=== PATIENT | female | born 1990 | race African-American/Black ===

== ENCOUNTER 2019-04-24 10:01 | Emergency (ER) | payer OTHER, SELFPAY ==
[2019-04-24 10:13] VITALS: BP 134/60; PULSE 80; RESP 18; TEMP 36.7; O2SAT 100
--- NOTE | 2019-04-24 10:14 | ED.FEMALEGU ---
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 Patient denies any change in sexual partners does have history of herpes and takes Acyclovir daily with no recent outbreaks. Patient states that she is on Depo and concerned because she had heavy period this past month and wants test. Patient declines STD check states has annual well woman appointment in May and next Depo injection. Patient states that she also has had a headache and felt dizzy at times with no other related symptoms,denies any visual disturbances,no changes in gait or any fevers,no neuro changes, moves all extremities on own power. MD elicited complaint: vaginal discharge and genital itching Pertinent past history: STI/STD Onset (ago): day(s) (6) Location of symptoms: external genitalia and vaginal Severity: mild Female Urogenital Radiation: Non-Radiating Severity scale (1-10): 7 (headache, ) Quality of pain: dull and other (irritating perineal, dull headache) Consistency: progressively worsening Vaginal discharge: white and thick/cheesy Vaginal bleeding: none Exacerbating factors: none and other Relieving factors: none Associated symptoms: headaches and other (occaisional dizziness, perineal irritation) Treatment prior to arrival: none Sexual activity: Yes Patient : No Possible : other (preg test negative at clinic) Date of Last Menstrual Period: 03/11/19 Related Data Home Medications Medication Instructions Recorded Confirmed acyclovir 02/03/19 medroxyprogesterone mg IM 02/03/19 ranitidine HCl 02/03/19 Allergies Allergy/AdvReac Type Severity Reaction Status Date / Time No Known Allergies Allergy Verified 02/03/19 17:47 Review of Systems Review of Systems: Narrative: CONSTITUTIONAL: Denies fever, chills, or sweats. EYES: Denies visual changes, redness, or discharge. ENT: Denies rhinorrhea, congestion, sore throat, or otalgia. CARDIOVASCULAR: Denies chest pain, palpitations, or edema. RESPIRATORY: Denies cough or dyspnea. GASTROINTESTINAL: Denies abdominal pain, nausea, vomiting, or diarrhea. GENITOURINARY: Denies dysuria or hematuria. vaginal discharge, white and itchy, declines pelvic, states no pain in pelvic region, similar symptoms past with yeast infections SKIN: Denies rash or itching, except for vaginal itching MUSCULOSKELETAL: Denies back pain, joint pain, or myalgia. NEUROLOGIC: intermittent headache,no numbness, or weakness. PSYCHIATRIC: Denies anxiety or depression. 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 There is no relevant family history pertinent to the presenting complaint Exam Narrative: Exam Narrative: GENERAL: Well-appearing, well-nourished, and in no acute distress. HEAD: Normocephalic, atraumatic. EYES: PERRLA and EOMI. ENT: Nares clear, no rhinorrhea or epistaxis. Mucous membranes moist.TM's normal with good light reflex, thro
== END 2019-04-24 11:07 | disposition home or self-care (01) ==
PROVIDERS: Emergency Provider Registered Nurse; PCP Nurse Practitioner
DX: B37.3 Candidiasis of vulva and vagina (principal); K21.9 Gastro-esophageal reflux disease without esophagitis
CPT/HCPCS: 81025; 99213; G0463

== ENCOUNTER 2019-12-15 14:20 | Outpatient (CLI) | payer OTHER, SELFPAY | END 2019-12-15 14:21 | disposition home or self-care (01) | LOC: ANHAUDIO 14:21 | PROVIDERS: PCP Nurse Practitioner; Visit Provider Otolaryngology | DX: H93.19 Tinnitus, unspecified ear (principal) | CPT/HCPCS: 92552; 92556; 92567 ==

== ENCOUNTER 2020-08-03 14:51 | Emergency (ER) | payer OTHER, SELFPAY ==
[2020-08-03 15:01] VITALS: BP 128/68; PULSE 97; RESP 16; TEMP 36.8; O2SAT 100
--- NOTE | 2020-08-03 15:07 | ED.GENADULT ---
HPI - General Adult General Chief complaint: Extremity Injury, Upper Stated complaint: lower back pain Source: patient Mode of arrival: ambulatory Limitations: no limitations History of Present Illness HPI narrative: 30 y/o AA female. PMH includes: GERD. Presents to [facility] today with acute complaints of cervical neck stiffness and muscle spasm after working a 12 hours shift at a [employer], her place of employment. 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 Client notes increased muscle stiffness since her shift ended from lifting my arms so much . No acute falls or trauma has been relayed. No fever. No focal weakness. No loss of upper extremity sensation or control. She reports mild relief with home OTC Aleve regimen. No additional acute complaints of illness have been relayed upon exam. Related Data Home Medications Medication Instructions Recorded Confirmed famotidine 10 mg tablet 10 mg PO DAILY 12/03/19 08/03/20 Allergies Allergy/AdvReac Type Severity Reaction Status Date / Time No Known Allergies Allergy Verified 08/03/20 15:09 Review of Systems Review of Systems: Narrative: CONSTITUTIONAL: Denies fever, chills, sweats. EYES: Denies visual changes, redness, discharge. ENT: Denies rhinorrhea, congestion, sore throat, otalgia. CARDIOVASCULAR: Denies chest pain, palpitations, edema. RESPIRATORY: Denies dyspnea, wheezing, cough GASTROINTESTINAL: Denies abdominal pain, nausea, vomiting, diarrhea. GENITOURINARY: Denies dysuria, hematuria, abnormal discharge SKIN: Denies rash or itching. MUSCULOSKELETAL: Cervical neck stiffness. No midline back pain, additional joint pain, or myalgia. NEUROLOGIC: Denies numbness, or focal weakness. PSYCHIATRIC: Denies anxiety or depression. 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 HEAD: normocephalic, atraumatic. EYES: PERRL. EARS: External ears normal. NOSE: External nose normal. THROAT: Mucous membranes moist, posterior pharynx clear. NECK: Neck supple, non-tender without lymphadenopathy, masses or thyromegaly. CARDIOVASCULAR: Regular rate and rhythm without murmurs, gallops, or rubs. RESPIRATORY: Clear to auscultation. Breath sounds equal bilaterally. GASTROINTESTINAL: Abdomen soft, non-tender, nondistended. NEURO: awake, alert, and oriented to person, place and time. There were no obvious focal neurologic abnormalities. Steady gait EXTREMITIES: Normal Cervical neck range of motion, no midline spinal tenderness. No nuchal rigidity. Positive cervical neck muscle spasm, LT > burdensome than RT. Reproducible with direct manipulation to trapezius. Remainder of musculoskeletal exam is negative. Course Vital Signs Vital signs: Vital Signs Temperature 36.8 C 08/03/20 15:01 Pulse Rate 97 08/03/20 15:01 Respiratory Rate 16 08/03/20 15:01 Blood Pressure 128/68 08/03/20 15:01 Pulse Oximetry 100 08/03/20 15:01 Temperature 36.8 C 08/03/20 15:01 Pulse Rate 97 08/03/20 15:01 Respiratory Rate 16 08/03/20 15:01 Blood Pressure 128/68 08/03/20 15:01 Pulse Oximetry 100 08/03/20 15:01 Medical De
== END 2020-08-03 15:12 | disposition home or self-care (01) ==
PROVIDERS: Emergency Provider Nurse Practitioner Adult Health
DX: M62.838 Other muscle spasm (principal); S16.1XXA Strain of muscle, fascia and tendon at neck level, initial encounter; X50.3XXA Overexertion from repetitive movements, initial encounter; Y99.0 Civilian activity done for income or pay; K21.9 Gastro-esophageal reflux disease without esophagitis
CPT/HCPCS: 99212; G0463

== ENCOUNTER 2021-12-25 09:01 | Emergency (ER) | payer OTHER, SELFPAY ==
--- NOTE | 2021-12-25 09:25 | ED.FEMALEGU ---
HPI - Female Genitourinary General Chief complaint: Urogenital-Female Stated complaint: Vaginal Problems Time Seen by Provider: 12/25/21 09:25 Source: patient, RN notes reviewed and old records reviewed Mode of arrival: ambulatory Limitations: no limitations History of Present Illness HPI Narrative: 31-year-old female presents to the [facility] with requesting a STD panel for blood, vaginal, test. Patient recently saw her DESIGN DIRECTOR. Started having vaginal discharge 2 days ago Has no specific concerns over STDs. Related Data Home Medications Medication Instructions Recorded Confirmed medroxyprogesterone 150 mg/mL 150 mg IM [id number] 12/25/21 12/25/21 intramuscular suspension valacyclovir 1 gram tablet mg PO DAILY 12/25/21 Allergies Allergy/AdvReac Type Severity Reaction Status Date / Time No Known Allergies Allergy Verified 12/25/21 09:53 Review of Systems Review of Systems: All systems reviewed & are unremarkable except as noted in HPI and below Constitutional: Constitutional: Reports no additional constitutional complaints, Denies chills and Denies fatigue Eyes: Eyes: Reports no additional eye complaints ENT: Reports system reviewed and no additional complaints, except as documented Cardiovascular: Cardiovascular: Reports no additional cardiovascular complaints Respiratory: Respiratory: Reports no additional respiratory complaints Gastrointestinal: Gastrointestinal: Reports no additional gastrointestinal complaints, Denies abdominal pain, Denies diarrhea, Denies nausea and Denies vomiting Genitourinary: Genitourinary: Reports as per HPI, Denies hematuria, Denies nocturia, Denies dysuria, Denies flank pain and Reports vaginal discharge Musculoskeletal: Musculoskeletal: Reports no additional musculoskeletal complaints and Denies back pain Integumentary/Breasts: Skin/Breast: Reports system reviewed and no additional complaints, except as docu Neurologic: Reports system reviewed and no additional complaints, except as documented Psychiatric: Psychiatric: Reports no additional psychiatric complaints Endocrine: Endocrine: Denies fatigue Allergic/Immunologic: Allergic/Immunologic: Reports no additional allergic/immunologic complaints [facility] Past Medical History Medical History GERD (gastroesophageal reflux disease) Herpes genitalis Surgical History Surgical History Previous section Social History Social History Smoking status: Never smoker Second hand tobacco smoke exposure: Yes Alcohol intake: never Substance use type: does not use 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 There is no relevant family history pertinent to the patient complaint. Exam Const: General: healthy appearing, no acute distress, alert and well nourished Nutritional Appearance: well nourished Orientation/consciousness: patient oriented x3 Limitations: no limitations HENMT: Head: normal to inspection Eyes: Conjunctivae: conjunctivae normal Pupils: Equal, round and reactive pupils present Neck: Neck: normal visual inspection, no lymphadenopathy and no meningeal signs Chest: Chest palpation & inspection: normal inspection of the chest and abnormal inspection of the chest Resp: Effort & Inspection: normal respiratory effort Auscultation: clear to auscultation bilaterally Cardio: Rate: regular rate Rhythm: regular rhythm GI: GI Palp: Yes Soft to palpation and No Tenderness to palpation present (GI) : General: Yes no CVA tenderness External Female Exam: normal external appearance Speculum Exam - Vagina: normal appearance of t
[2021-12-25 09:34] VITALS: BP 131/71; PULSE 76; RESP 12; TEMP 36.3; O2SAT 100
== END 2021-12-25 10:15 | disposition home or self-care (01) ==
PROVIDERS: Emergency Provider Nurse Practitioner
DX: N89.8 Other specified noninflammatory disorders of vagina (principal); Z32.02 Encounter for pregnancy test, result negative; Z20.2 Contact with and (suspected) exposure to infections with a predominantly sexual mode of transmission; K21.9 Gastro-esophageal reflux disease without esophagitis
CPT/HCPCS: 81025; 87070; 87491; 87591; 87661; 99214; G0463

== ENCOUNTER 2022-03-12 00:13 | Emergency (ER) | payer OTHER, SELFPAY ==
--- NOTE | ~2022-03-12 | XR_ITS ---
EXAMINATION: XR chest 2V DATE: 03/12/2022 03:07 INDICATION: Upper respiratory infection. TECHNIQUE: Frontal and lateral views of the chest were obtained. COMPARISON: Chest 2 views 02/03/2019 FINDINGS: The chest demonstrates clear lungs without pneumonia, pleural effusion, or pneumothorax. Th e heart size is normal. IMPRESSION: 1. No acute cardiopulmonary disease. Reviewed, dictated and finalized at location A. ESTATE APPRAISER SUPERVISOR
[2022-03-12 00:50] VITALS: BP 130/82; PULSE 78; RESP 18; TEMP 36.8; O2SAT 100
[2022-03-12 01:36] LABS: Strep Group A RT-PCR NOT DETECTED (Negative)
[2022-03-12 01:43] LABS: Influenza A QL RT-PCR Negative (Negative); Influenza B QL RT-PCR Negative (Negative); SARS-CoV-2 RNA PCR Negative
--- NOTE | 2022-03-12 03:00 | ED.URI ---
HPI - URI/Sore Throat General Chief Complaint: Upper Respiratory Infection Stated Complaint: URI Time Seen by Provider: 03/12/22 02:31 Source: patient Mode of arrival: ambulatory Limitations: no limitations History of Present Illness HPI Narrative: Patient is a 31 y/o female who presents to the ED with c/o sore throat. Patient reports having a sore scratchy throat for the last 2 days. She states when she lays down at night her throat feels very dry, causing her to have difficulty sleeping, which prompted her presentation. Patient presented to ED with her child who has also had similar symptoms. She reports having 1 episode of subjective fever and hoarse voice, no documented fever, denies chest pain, difficulty breathing, cough, nausea, vomiting. Patient is vaccinated for COVID and flu. Related Data Home Medications Medication Instructions Recorded Confirmed medroxyprogesterone 150 mg/mL 150 mg IM [id number] 12/25/21 12/25/21 intramuscular suspension valacyclovir 1 gram tablet mg PO DAILY 12/25/21 Allergies Allergy/AdvReac Type Severity Reaction Status Date / Time No Known Allergies Allergy Verified 12/25/21 09:53 Review of Systems Review of Systems: CONSTITUTIONAL: Reports subjective fever. ENT: See HPI. CARDIOVASCULAR: Denies chest pain. RESPIRATORY: Denies cough or dyspnea. GASTROINTESTINAL: Denies abdominal pain, nausea, vomiting. 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 HEAD: Normocephalic, atraumatic. EYES: PERRLA/EOMI, conjunctiva clear. ENT: No significant posterior pharynx erythema, no tonsillar hypertrophy or exudate. Uvula midline. Maintaining secretions. NECK: Supple. No adenopathy, no masses. RESPIRATORY: Airway patent, respirations nonlabored. Clear to auscultation bilaterally, no rales, rhonchi, wheezing. CARDIOVASCULAR: Regular rate and rhythm without murmurs, rubs, or gallops. Radial pulses 2+ and equal bilaterally. MUSCULOSKELETAL: Moves all extremities. Strength/ROM intact without gross deformities. SKIN: Warm, dry, normal color. No rashes. NEURO: A&O X3. Speech clear. Cranial nerves II-XII grossly intact. Steady gait. No ataxic movements. PSYCHIATRIC: Appropriate mood and affect. Normal interaction. Course Vital Signs Vital signs: Vital Signs Temperature 98.3 F 03/12/22 00:50 Pulse Rate 78 03/12/22 00:50 Respiratory Rate 18 03/12/22 00:50 Blood Pressure 130/82 03/12/22 00:50 Pulse Oximetry 100 03/12/22 00:50 Oxygen Delivery Room Air 03/12/22 00:50 Temperature 98.3 F 03/12/22 00:50 Pulse Rate 78 03/12/22 00:50 Respiratory Rate 18 03/12/22 00:50 Blood Pressure 130/82 03/12/22 00:50 Pulse Oximetry 100 03/12/22 00:50 Oxygen Delivery Room Air 03/12/22 00:50 MDM - URI/Sore Throat MDM Narrative Medical decision making narrative: Patient presented to ED with 2-day history of sore scratchy throat. Presented to ED with child with similar upper respiratory symptoms. No report of cough, documented fever, CP, SOB. Patient's vital signs stable upon arrival. Afebrile. COVID, influenza, strep negative. Chest x-ray interpreted by myself w/o focal consolidation. Patient without any other concerning signs or
== END 2022-03-12 03:31 | disposition home or self-care (01) ==
PROVIDERS: Emergency Medicine; Emergency Provider Physician Assistant
DX: J06.9 Acute upper respiratory infection, unspecified (principal); B00.9 Herpesviral infection, unspecified; Z20.822 Contact with and (suspected) exposure to COVID-19
CPT/HCPCS: 71046; 87636; 87651; 99283

== ENCOUNTER 2022-05-03 12:51 | Emergency (ER) | payer OTHER, SELFPAY ==
--- NOTE | ~2022-05-03 | XR_ITS ---
EXAMINATION: XR chest 2V 05/03/2022 13:36 INDICATION: Left-sided chest pain PROCEDURE: 2 view chest COMPARISON: 03/12/2022 FINDINGS: The lungs are clear. The cardiomediastinal silhouette is within normal limits. There are no pleural effusions. There is no pneumothorax suspected. IMPRESSION: 1: NO ACUTE CARDIOPULMONARY DISEASE. Reviewed, dictated and finalized at location L. SALES NETWORK ENGINEER
[2022-05-03 13:03] VITALS: BP 139/68; PULSE 80; RESP 20; TEMP 36.9; O2SAT 100
--- NOTE | 2022-05-03 13:03 | ED.GENADULT ---
HPI - General Adult General Chief complaint: Back Pain/Injury Stated complaint: Back Pain Time Seen by Provider: 05/03/22 13:05 Source: patient, RN notes reviewed and old records reviewed Mode of arrival: ambulatory Limitations: no limitations History of Present Illness HPI narrative: 31-year-old female presents to the [facility] with scapular pain, left side for the last hour. Denies any injuries. Pain is worse with movement and palpation. Denies any chest pain or shortness of breath Denies any injury to the area. Related Data Home Medications Medication Instructions Recorded Confirmed medroxyprogesterone 150 mg/mL 150 mg IM [id number] 12/25/21 05/03/22 intramuscular suspension acyclovir 400 mg tablet 400 mg PO DAILY 05/03/22 05/03/22 Allergies Allergy/AdvReac Type Severity Reaction Status Date / Time No Known Allergies Allergy Verified 05/03/22 12:54 Review of Systems Review of Systems: All systems reviewed & are unremarkable except as noted in HPI and below Constitutional: Constitutional: Reports no additional constitutional complaints Eyes: Eyes: Reports no additional eye complaints ENT: Reports system reviewed and no additional complaints, except as documented Cardiovascular: Cardiovascular: Reports no additional cardiovascular complaints, Denies chest pain and Denies dyspnea Respiratory: Respiratory: Reports no additional respiratory complaints, Denies chest congestion, Denies cough and Denies dyspnea Gastrointestinal: Gastrointestinal: Reports no additional gastrointestinal complaints, Denies abdominal pain, Denies nausea and Denies vomiting Musculoskeletal: Musculoskeletal: Reports as per HPI and Reports back pain Integumentary/Breasts: Skin/Breast: Reports system reviewed and no additional complaints, except as docu Neurologic: Reports system reviewed and no additional complaints, except as documented Psychiatric: Psychiatric: Reports no additional psychiatric complaints Allergic/Immunologic: Allergic/Immunologic: Reports no additional allergic/immunologic complaints [facility] Past Medical History Medical History GERD (gastroesophageal reflux disease) Herpes genitalis Surgical History Surgical History Previous section Social History Social History Smoking status: Never smoker Second hand tobacco smoke exposure: Yes Alcohol intake: never Substance use type: does not use Living arrangements: with family Occupation/Education: occupation 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 There is no relevant family history pertinent to the patient complaint. Exam Const: General: cooperative, healthy appearing, comfortable, no acute distress, well developed, alert and well nourished Nutritional Appearance: well nourished and obese Orientation/consciousness: patient oriented x3 Limitations: no limitations HENMT: Head: normal to inspection Ears: hearing grossly normal bilaterally and external ears normal Face/Nose/Sinus: Normal external nose present, Normal nares present, Normal nasal mucous membranes and turbinates present and normal facial exam Face and sinus: normal facial exam Mouth: Yes Normal oral and palatal mucosa present, Yes lip normal and Yes moist mucous membranes Throat: posterior oropharynx normal and uvula midline Eyes: General: appearance normal, both eyes and all related structures Alignment and Position: alignment normal Periorbital: periorbital findings normal Conjunctivae: conjunctivae normal Pupils: Equal, round and reactive pupils present EOM: EOMs intact bilaterally Neck: Neck: normal visu
== END 2022-05-03 13:48 | disposition home or self-care (01) ==
PROVIDERS: Emergency Provider Nurse Practitioner; PCP Physician Assistant
DX: S29.012A Strain of muscle and tendon of back wall of thorax, initial encounter (principal); X58.XXXA Exposure to other specified factors, initial encounter; K21.9 Gastro-esophageal reflux disease without esophagitis
CPT/HCPCS: 71046; 99213; G0463

== ENCOUNTER 2022-06-15 13:34 | Outpatient (CLI) | payer OTHER, SELFPAY ==
--- NOTE | ~2022-06-15 | US_ITS ---
EXAMINATION: US thyroid DATE: 06/15/2022 14:07 INDICATION: Goiter. TECHNIQUE: Multiple ultrasound images of the thyroid were obtained. COMPARISON: None. FINDINGS: The right thyroid lobe measures 4.4 x 2.1 x 1.4 cm. The left thyroid lobe measures 4.0 x 1.3 x 1.7 c m. There is normal echotexture and echogenicity throughout the thyroid gland. No discrete nodules id entified. Normal vascular flow is present. IMPRESSION: 1. Normal thyroid. Reviewed, dictated and finalized at location A. IMPRESSION: 1. Normal thyroid.
== END 2022-06-15 13:35 | disposition home or self-care (01) ==
PROVIDERS: PCP Physician Assistant; Visit Provider Physician Assistant
DX: E04.9 Nontoxic goiter, unspecified (principal)
CPT/HCPCS: 76536

== ENCOUNTER → 2022-09-03 15:38 | Outpatient (CLI) | payer OTHER, SELFPAY ==
--- NOTE | ~2022-09-03 | XR_ITS ---
EXAMINATION: XR heel RT min 2V, XR heel LT min 2V DATE: 09/03/2022 16:10 INDICATION: Bilateral plantar and posterior heel pain TECHNIQUE: 1. Axial and lateral views of the right calcaneus were obtained. 2. Axial and lateral views of the left calcaneus were obtained. COMPARISON: None. FINDINGS: Line alignment is normal at the bilateral ankles and hindfeet. No fractures. Bilateral join t spaces are normal. No erosions. Very small left plantar calcaneal spur. Soft tissues are unremarkab le. No ankle joint effusions. IMPRESSION: 1. Very small left plantar calcaneal spur. No other osseous abnormality. Reviewed, dictated and finalized at location A. IMPRESSION: 1. Very small left plantar calcaneal spur. No other osseous abnormality.
== END ==
PROVIDERS: PCP Nurse Practitioner Family; Visit Provider Nurse Practitioner Family
DX: M79.672 Pain in left foot (principal); M79.671 Pain in right foot
CPT/HCPCS: 73650

== ENCOUNTER 2023-03-02 08:33 | Emergency (ER) | payer OTHER, SELFPAY ==
--- NOTE | 2023-03-02 08:35 | ED.GENADULT ---
HPI - General Adult General Chief complaint: Neck Pain/Injury Stated complaint: Neck Pain Time Seen by Provider: 03/02/23 08:47 Source: patient, RN notes reviewed and old records reviewed Mode of arrival: ambulatory Limitations: no limitations History of Present Illness HPI narrative: 32-year-old female presents to the [facility] with complaints of neck pain since Saturday, 4 days. States that she ?slept wrong. Denies any trauma. Denies any numbness or tingling. Walks with a normal gait Patient reports left-sided neck pain radiating into the trapezius muscle. Worse in the morning, improves throughout the day. Denies any loss retention of bowel or bladder. No midline tenderness. Denies chest pain, fevers, abdominal pain. Has taken Tylenol, ice packs and Biofreeze Onset (ago): day(s) (4) Treatments prior to arrival: cold therapy and other (topical, Tylenol) Related Data Home Medications Medication Instructions Recorded Confirmed valacyclovir 1 gram tablet mg 03/02/23 Allergies Allergy/AdvReac Type Severity Reaction Status Date / Time No Known Allergies Allergy Verified 03/02/23 08:51 Review of Systems Review of Systems: All systems reviewed & are unremarkable except as noted in HPI and below Constitutional: Constitutional: Reports no additional constitutional complaints Eyes: Eyes: Reports no additional eye complaints ENT: Reports system reviewed and no additional complaints, except as documented Cardiovascular: Cardiovascular: Reports no additional cardiovascular complaints, Denies chest pain and Denies dyspnea Respiratory: Respiratory: Reports no additional respiratory complaints, Denies chest congestion, Denies cough and Denies dyspnea Gastrointestinal: Gastrointestinal: Reports no additional gastrointestinal complaints, Denies abdominal pain, Denies nausea and Denies vomiting Musculoskeletal: Musculoskeletal: Reports as per HPI Integumentary/Breasts: Skin/Breast: Reports system reviewed and no additional complaints, except as docu Neurologic: Reports system reviewed and no additional complaints, except as documented Psychiatric: Psychiatric: Reports no additional psychiatric complaints Allergic/Immunologic: Allergic/Immunologic: Reports no additional allergic/immunologic complaints [facility] Past Medical History Medical History (Updated 03/02/23 @ 09:00 by Kellie Ham APRN) GERD (gastroesophageal reflux disease) Herpes genitalis Obesity Surgical History Surgical History Previous section Social History Social History Smoking status: Never smoker Second hand tobacco smoke exposure: Yes Alcohol intake: never Substance use type: does not use Living arrangements: with family Occupation/Education: occupation 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 There is no relevant family history pertinent to the patient complaint. Exam Const: General: cooperative, healthy appearing, comfortable, no acute distress, well developed, alert and well nourished Nutritional Appearance: well nourished and obese Orientation/consciousness: patient oriented x3 Limitations: no limitations HENMT: Head: normal to inspection Ears: hearing grossly normal bilaterally and external ears normal Face/Nose/Sinus: Normal external nose present, Normal nares present, Normal nasal mucous membranes and turbinates present, normal facial exam and face symmetric Face and sinus: normal facial exam and face symmetric Eyes: General: appearance normal, both eyes and all related structures Alignment and Position: alignment normal Periorbital: periorbital findings normal Pupils: Equal, round and reactive
[2023-03-02 08:47] VITALS: BP 142/82; PULSE 72; RESP 16; TEMP 36.6; O2SAT 100
== END 2023-03-02 09:08 | disposition home or self-care (01) ==
PROVIDERS: Emergency Provider Nurse Practitioner; PCP Nurse Practitioner Family
DX: S16.1XXA Strain of muscle, fascia and tendon at neck level, initial encounter (principal); X58.XXXA Exposure to other specified factors, initial encounter; K21.9 Gastro-esophageal reflux disease without esophagitis; E66.9 Obesity, unspecified
CPT/HCPCS: 99213; G0463

== ENCOUNTER 2024-01-18 10:14 | Outpatient (CLI) | payer OTHER, SELFPAY ==
--- NOTE | ~2024-01-18 | XR_ITS ---
EXAMINATION: XR chest 2V Exam Date/Time: 01/18/2024 10:30 CARTON COUNTER FEEDER HISTORY: CHILLS Comparison: None. RESULT: Lines, tubes, and devices: None. Lungs and pleura: Clear. Cardiomediastinal silhouette: Stable. Other: No acute osseous or upper abdominal finding. IMPRESSION: No acute cardiopulmonary process. Reviewed, dictated and finalized at location [facility]. [facility] COUN[employer] FEEDER
== END 2024-01-18 10:15 | disposition home or self-care (01) ==
LOC: ANHIMG 10:22
PROVIDERS: PCP Nurse Practitioner Family; Visit Provider Nurse Practitioner Family
DX: R68.83 Chills (without fever) (principal)
CPT/HCPCS: 71046

== ENCOUNTER 2024-12-13 08:40 | Emergency (ER) | payer OTHER, SELFPAY ==
--- OUTSIDE RECORDS SUMMARY | 2024-12-13 08:42 | XMS_ITS | Clinical Summary ---
Author Organization [facility] Address [address] [place] [address] Care Team Providers Care Lumber Tying Machine Operator Name Role Phone Harriet Crawford NP Primary Care Provider Allergies No known active allergies Medications hydrocortisone (ANUSOL-HC) 2.5 % rectal creamIndications:H emorrhoids Insert into the rectum 4 (four) times a day as needed for hemorrhoids (rectal discomfort) Apply to affected areas 30 g 3 12/13/19 23 Active doxycycline (VIBRAMYCIN) 100 mg capsule Take 1 tablet/capsule (100 mg total) by mouth 2 (two) times a day 20 capsule 08/08/19 25 Active valACYclovir (VALTREX) 1 gram tabletIndications: Herpes simplex vulvovaginitis TAKE 1 TABLET BY MOUTH ONCE DAILY NEEDED (BREAKOUT) 10 tablet 10/21/19 25 Active Active Problems Problem Noted Date Diagnosed Date Insect bite of left thigh 07/30/2024 Late menses 02/13/2024 Chills 01/16/2024 Neck pain 03/06/2023 Hemorrhoids 12/12/2022 Overview (12/12/2022): Use hydrocortisone cream 1-4 times daily as needed for discomfort. Get [id number] suppositories as needed. Notify the office without improvement Intractable left heel pain 09/03/2022 Overview (09/04/2022): X-ray completed. We will notify you of the results when they return Morbid obesity with BMI of 45.0-49.9, adult 07/09 Assessment & Plan (07/30/2024 1:48 PM CDT): Discussed the patient's BMI. The BMI is above average. BMI management plan is completed. BMI Follow-up includes: nutrition counseling, exercise counseling and education provided. Assessment & Plan (02/13/2024 9:36 AM INTELLIGENCE OFFICER): Discussed the patient's BMI. The BMI is above average. BMI management plan is completed. BMI Follow-up includes: nutrition counseling, exercise counseling and education provided. Assessment & Plan (03/06/2023 9:08 AM INTELLIGENCE OFFICER): Discussed the patient's BMI. The BMI is above average. BMI management plan is completed. BMI Follow-up includes: nutrition counseling, exercise counseling and education provided. Class 3 severe obesity due t o excess calories without serious comorbidity with body mass index (BMI) of 45.0 to 49.9 in adult 07/25/2022 Assessment & Plan (01/16/2024 2:04 PM INTELLIGENCE OFFICER): Discussed the patient's BMI. The BMI is above average. BMI management plan is completed. BMI Follow-up includes: nutrition counseling, exercise counseling and education provided. Assessment & Plan (09/03/2022 3:21 PM CDT): Discussed the patient's BMI. The BMI is above average. BMI management plan is completed. BMI Follow-up includes: nutrition counseling, exercise counseling and education provided. Discussed the patient's BMI. The BMI is above average. BMI management plan is completed. BMI Follow-up includes: nutrition counseling, exercise counseling and education provided. Screening for cholesterol level 07/25/2022 Goiter 06/26/2022 07/25/2022 Genital herpes simplex 07/04/2020 3 JOSIANE (obstructive sleep apnea) 01/29/2018 Overview (01/29/2018): Added automatically from request for surgery [id number] Impacted third molar tooth 01/29/2018 Overview (01/29/2018): Added automatically from request for surgery [id number] Large tonsils 01/29/2018 Overview (01/29/2018): Added automatically from request for surgery [id number] Laryngopharyngeal reflux (LPR) 01/01/2018 Assessment & Plan (01/01/2018 2:28 PM CDT): Patient has history of reflux. To was previously taking Zantac 300 mg twice daily with for symptoms. Today patient admits that she has run out of her medication she has been taking her spouse is medication as needed. Recommend patient stop taking Zantac as needed and return to twice daily recommendations as previously discussed. Patient was provided with educational material regarding reflux precautions. Patient was instructed to refrain from eating a meal approximately 3 hours prior to bedtime. Patient was instructed to elevate the head of the bed by approximately 8 inches. Patient was to refrain from consuming spicy greasy fatty foods, dairy products, and excessive caffeine use. Patient was also advised to increase water consumption. Patient was also instructed on weight reduction and exercise regimen. Patient was also instructed on the importance of compliance with medications. Patient to follow-up in 3 months Allergic rhinitis 01/01/2018 Assessment & Plan (01/01/2018 2:30 PM CDT): Patient has complaints of itchy, watery eyes, congestion, rhinorrhea and postnasal drip. Patient has taken allergy medication use nasal sprays in the past with only partial relief of her symptoms. Patient is unaware of any specific triggers and not correlate her symptoms to a particular season. Recommend patient for I will Zyrtec, Flonase and a saline irrigation for relief of her symptoms. Educated patient on proper nasal spray administration as well as how to perform saline irrigation. Patient to follow up in 2 months Oral mucosal lesion 03/17/2017 Assessment & Plan (04/01/2017 8:37 AM INTELLIGENCE OFFICER): A punch biopsy was performed today of the anterior tip of the tongue. Specimen will be submitted in formalin to the pathology Department for histopathologic assessment. Oral hygiene care instructions were discussed. Further treatment recommendations pending results biopsy. Assessment & Plan (03/17/2017 3:52 PM INTELLIGENCE OFFICER): Patient demonstrates a pigmented oral lesion along the anterior tip of tongue. This most likely represents a benign melanosis. Just to be on the safe side a punch biopsy will be obtained. All questions were answered to what appeared to be patient's understanding and satisfaction. After the procedure was explained in full the potential risk, complications, benefits and alternatives patient would like to proceed. Patient will be scheduled in a timely fashion. Right chronic serous otitis media 03/17/2017 Assessment & Plan (03/17/2017 3:53 PM INTELLIGENCE OFFICER): Today's examination demonstrated serous fluid in the right ear. This most likely is related to upper respiratory tract infection. Recommend Mucinex D and fluticasone nasal spray as prescribed. Patient will follow back up at the time of her tongue biopsy to reassess. Possible need for myringotomy with aspiration. Morbid obesity 03/08/2017 Resolved Problems Problem Noted Date Diagnosed Date Resolved Date BMI 40.0-44.9, adult 07/04/2020 07/25/2022 023 Assessment & Plan (07/25/2022 10:09 AM CDT): Discussed the patients BMI: The BMI is above average BMI management is complete. BMI follow-up includes: Nutrition Counseling and education provided BMI 45.0-49.9, adult 03/08/2017 023 Immunizations Immunization Administration Dates Next Due DTP 10/07/1995, 3,02/18/1991,10/10,1990 HPV, Quadrivalent 05/21/2007,01/03/2007,07/26/19 07 Hep A, Pediatric 05/21/2007,07/25/2006 Hep A, Unspecified 05/21/2007,07/25/2006 Heplisav-b (Hepatitis B) 07/25/2022 HiB 12/04/1991 Hib (HbOC) 12/04/1991 Influenza Virus Vaccine Trivalent 03/06/2023(Def erred: Patient Refused) Influenza, Quadrivalent, Spl it, Preservative Free, Intramuscular 01/14/2022,05/22/2019,06/14/2017 Influenza, Trivalent, Preser vative Free, Intramuscular 01/03/2007 Influenza, Unspecified 03/11/2024(Deferr ed: Patient Refused),01/16/2024(Deferred: Patient Refused),12/24/2023,03/11/2022(Deferre d: Patient Refused),01/14/2022,05/22/2019, 018,01/03/2007 MMR 10/07/1995,12/04/1991 Moderna SARS-CoV-2 Monovalen t Vaccination (12+ YRS) 06/14/2020 OPV 10/07/1995, 3,1990,08/01 OPV, Unspecified 10/07/1995, 3,1990,08/01 Pfizer SARS-CoV-2 Monovalent Vaccination (12+ Yrs) PURPLE 01/30/2021 Tdap 07/25/2022,07/25/2006 Surgical History Surgery Date Site/Laterality Comments SECTION WISDOM TOOTH EXTRACTION Medical History Medical History Date Comments Herpes Ear problems Obesity Foot pain Family History Medical History Relation Name Comments Lung cancer Father Cancer Father's Sister Cancer Maternal Grandfather Diabetes Maternal Grandfather Stroke Maternal Grandfather Cancer Maternal Grandmother Diabetes Maternal Grandmother Stroke Maternal Grandmother No Known Problems Mother Relation Name Status Comments Father Alive Father's Sister Maternal Grandfather Maternal Grandmother Mother Alive Social History Tobacco Use Types Packs/Day Years Used Date Smoking Tobacco: Never Smokeless Tobacco: Never Tobacco Cessation:Counseling Given: Not Answered Alcohol Use Standard Drinks/Week Comments Yes 1 (1 standard drink = 0.6 oz pur e alcohol) social PHQ-2 Answer Date Recorded PHQ-2 Total Score (If total score is 3 or more points, staff should administer the PHQ-9) 0 08/25/2024 Personal Safety Answer Date Recorded Have you ever been in or are you currently in a harmful physical or emotional relationship or is someone making you feel afraid or unsafe? Denies 07/30/2024 Comments Unknown Sex and Gender Information Value Date Recorded Sex Assigned at Not on file Legal Sex Female 2:25 PM INTELLIGENCE OFFICER Gender Identity Not on file Sexual Orientation Not on file Obstetrics History Last Filed Vital Signs Vital Sign Reading Time Taken Comments Blood Pressure 120/68 08/25/2024 11:08 AM CDT Pulse 71 08/25/2024 11:08 AM CDT Temperature 36.7 C (98.1 F) 08/25/2024 11:08 AM CDT Respiratory Rate 17 07/31/2024 2:30 AM CDT Oxygen Saturation 99% 08/25/2024 11:08 AM CDT Inhaled Oxygen Concentration - - Weight 137.4 kg (303 lb) 08/25/2024 11:08 AM CDT Height 170.2 cm (5' 7) 08/25/2024 11:08 AM CDT Body Mass Index 47.46 08/25/2024 11:08 AM CDT Plan of Treatment Health Maintenance Due Date Last Done Comments Cervical Cancer Screening 1990 Hepatitis C Screening 1990 Varicella Vaccines (1 of 2 - 13+ 2-dose series) 05/14/2003 Covid-19 Vaccine ( season) 2024 01/30/2021, 07/05/2020, 06/14/2020, Additional history exists Influenza Vaccine (#1) 2024 , 01/14/2022, 01/14/2022, Additional history exists Regular Well Visit/Exam 18-64 02/12/2025 02/13/2024, 07/25/2022 Depression Screening 08/25/2025 08/25/2024, 07/30/2024, 02/13/2024, Additional history exists DTaP/Tdap/Td Vaccine (8 - Td or Tdap) 07/25/2032 07/25/2022, 07/25/2006, 10/07/1995, Additional history exists HPV Vaccines Completed 05/21/2007, 12/10, 07/25/2006 Hepatitis B Screening Completed 07/25/2022 Pneumococcal vaccine <65 Aged Out No longer eligible based on patient's age to complete this topic Insurance [employer] [facility] MEDICAID AETNA BETTER [facility] Care Teams Lumber Tying Machine Operator Relationship Specialty Start Date End Date Harriet Crawford NP [address] [place] [address] PCP - General Internal Medicine 07/25/22
--- OUTSIDE RECORDS SUMMARY | 2024-12-13 08:42 | XMS_ITS | Encounter Summary ---
Author Organization [facility] Address [address] [place] [address] Phone Care Team Providers Care Commercial Print Salesman Name Role Phone De Artur Galaviz DO Primary Care Provider Harriet Crawford NP Primary Care Provider [phone] Encounter Details Date Type Department Care Team (Late st Contact Info) Description 03/29/2017 Orders Only [facility] ProviderJemima MD [address] [place] [id number] Social History Tobacco Use Types Packs/Day Years Used Date Smoking Tobacco: Former Smokeless Tobacco: Former Alcohol Use Standard Drinks/Week Comments Yes 0 (1 standard drink = 0.6 oz pur e alcohol) Comments Unknown Sex and Gender Information Value Date Recorded Sex Assigned at Not on file Legal Sex Female 2:25 PM FIRE PREVENTION SPECIALIST Gender Identity Not on file Sexual Orientation Not on file documented as of this encounter Plan of Treatment Not on file documented as of this encounter Procedures Procedure Name Priority Date/Time Associated Diagnosis Comments SURGICAL PATHOLOGY 03/29/2017 12 :00 AM FIRE PREVENTION SPECIALIST documented in this encounter Results * SURGICAL PATHOLOGY (03/29/2017 12:00 AM FIRE PREVENTION SPECIALIST) Narrative 03/29/2017 12:00 AM FIRE PREVENTION SPECIALIST Ordered by an unspecified provider. Historical Provider LAB PATHOLOGY ORDERABLES Final Result documented in this encounter Visit Diagnoses Not on filedocumented in this encounter Care Teams Commercial Print Salesman Relationship Specialty Start Date End Date Artur Kc DO [address] [place] [address] PCP - General Family Medicine 02/15/17 07/24/22 [place] [address] [place] [id number] PCP - General Internal Medicine 07/25/22 documented as of this encounter
--- OUTSIDE RECORDS SUMMARY | 2024-12-13 08:42 | XMS_ITS | Clinical Summary ---
Author Organization [facility] Address [facility] [place] [address] Care Team Providers Care Cardiac Care Unit Nurse Name Role Phone Kellie Lind NP Primary Care Provider Allergies No known active allergies Medications medroxyPROGESTER one 150 MG/ML injection ADM 1 ML IM Q 3 MONTHS 3 9 Active albuterol sulfate HFA 108 (90 Base) MCG/ACT inhaler Inhale 2 puffs into the lungs every 6 (six) hours as needed for Shortness of breath. 1 Inhaler 0 Active Spacer/Aero-Hold ing Chambers Device 1 Inhaler by Does not apply route every 6 (six) hours as needed. 1 Device 0 Active ACYCLOVIR 400 MG tabletIndication s:Genital herpes simplex, unspecified site TAKE 1 TABLET BY MOUTH TWICE DAILY 60 tablet 0 Active famotidine 20 MG tabletIndication s:Gastroesophage al reflux disease, esophagitis presence not specified Take 1 tablet (20 mg total) by mouth daily. 90 tablet 1 0 Active Active Problems No known active problems Immunizations Immunization Administration Dates Next Due Dtp 10/07/1995, 3,02/18/1991,1990,1990 HPV4 (Gardasil) 05/21/2007,01/03/2007,07/25/2006 Hepatitis A (Generic) 05/21/2007,07/25/2006 Hepatitis A (Havrix [address]) 05/21/2007, 007 Hib 12/04/1991 Hib (Generic) 12/04/1991 Influenza Adult (Generic) 01/14/2022,,06/14/2017,2006 MMR 10/07/1995,12/04/1991 Opv 10/07/1995, 3,1990,1990 PFIZER COVID-19 (ORIGINAL FORMULATION, PURPLE CAP) mRNA, LNP-S, PF, 30 MCG/0.3 ML DOSE 01/30/2021 Polio Opv (Generic) 10/07/1995, 3,1990,1990 Tdap (Generic) 07/25/2006 Family History Medical History Relation Comments COPD Father Stroke Maternal Grandfather Relation Status Comments Father Maternal Grandfather Social History Tobacco Use Types Packs/Day Years Used Date Smoking Tobacco: Never Smokeless Tobacco: Never Tobacco Cessation:Counseling Given: No Alcohol Use Standard Drinks/Week Comments Yes 0 (1 standard drink = 0.6 oz pur e alcohol) social Comments No Sex and Gender Information Value Date Recorded Sex Assigned at Not on file Legal Sex Female 7:45 PM CDT Gender Identity Not on file Sexual Orientation Not on file Last Filed Vital Signs Vital Sign Reading Time Taken Comments Blood Pressure 120/80 10/30/2019 1:53 PM CDT Pulse 88 10/30/2019 1:53 PM CDT Temperature 36.3 C (97.3 F) 10/30/2019 1:53 PM CDT Respiratory Rate 18 10/30/2019 1:53 PM CDT Oxygen Saturation 98% 10/30/2019 1:53 PM CDT Inhaled Oxygen Concentration - - Weight 129.3 kg (285 lb) 10/30/2019 1:53 PM CDT Height 170.2 cm (5' 7) 10/30/2019 1:53 PM CDT Body Mass Index 44.64 10/30/2019 1:53 PM CDT Plan of Treatment Health Maintenance Due Date Last Done Comments Cervical Cancer Screening Pap Smear (Age 30 to 64) Every 3 Years 1990 Hepatitis B Vaccines (1 of 3 - 19+ 3-dose series) 2009 DTaP, Tdap and Td Vaccines (2 - Td or Tdap) 07/25/2016 07/25/2006, 10/07/1995, 04/01/1992, Additional history exists Annual Physical 05/23/2019 05/22/2018 Cervical Cancer Screening Pap with HPV Testing (Age 30 to 64) Every 5 Years 2020 Cervical Cancer Screening with HPV 2020 PHQ-2 (Physician Mcintosh) 03/11/2024 COVID-19 Vaccine ( season) 2024 01/30/2021, 07/05/2020, 06/14/2020 HPV Vaccines Completed 05/21/2007, 12/10, 07/25/2006 Hepatitis C Completed 05/22/2019, 03/12, 04/05/2017, Additional history exists Meningococcal B Vaccine Aged Out No l onger eligible based on patient's age to complete this topic Meningococcal Vaccine Aged Out No narciso mora eligible based on patient's age to complete this topic Pneumococcal Vaccine: Pediatrics (0 to 5 Years) and At-Risk Patients (6 to 49 Years) Aged Out No longer eligible based on patient's age to complete this topic RSV Immunizations Under 20 Months Aged Out No longer eligible based on patient's age to complete this topic Procedures Procedure Name Priority Date/Time Associated Diagnosis Comments HEPATITIS C ANTIBODY Routine 05/22/2019 8:15 AM CDT Screen for STD (sexually transmitted disease) from Last 3 Months or Most Recently Relevant to Health Maintenance Results * HEPATITIS C ANTIBODY (05/22/2019 8:15 AM CDT) HEPATITIS C AB <0.1 0.0 - 0.9 s/co ratio [facility] 2 Comment: Negative: < 0.8 Indeterminate: 0.8 - 0.9 Positive: > 0.9 The CDC recommends that a positive HCV antibody result be followed up with a HCV Nucleic Acid Amplification test ([id number]). 05/22/2019 8:15 AM CDT 05/22/2019 Narrative [facility] - 05/26/2019 4:06 AM CDT Performed at: [facility] [id number] Registered Mail Clerk: Levi Huizar PhD, Phone: [phone] Kellie Lind NP LABORATORY Final Result [facility] [address] [place] [address] [facility] 2 from Last 3 Months or Most Recently Relevant to Health Maintenance Insurance [facility] Care Teams Cardiac Care Unit Nurse Relationship Specialty Start Date End Date Kellie [place] [address] PCP - General FAMILY PRACTICE 02/06/17
--- OUTSIDE RECORDS SUMMARY | 2024-12-13 08:42 | XMS_ITS | Clinical Summary ---
Author Organization [facility] Address [address] [place] [address] Care Team Providers Care Line Maintainer Section Name Role Phone Kellie Lind APRN-MANAGER HIV Primary Care Provider [phone] Source Comments [facility],non-owned Affiliates and Associated Physician Practices is amultiple site organization consisting of ambulatory clinics and hospital sitesin [place], [place], [place] and [place]. This disclosure is being madepursuant to the Care Everywhere program and may not contain all information available regarding this patient. Last updated 17.[facility] Allergies No known active allergies Medications * Be aware that medications may not be up to date on this document. Alwaysverify current medications with the patient. 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 Gender Identity Not on file Sexual Orientation Not on file Last Filed Vital Signs Vital Sign Reading Time Taken Comments Blood Pressure 120/80 07/20/2017 11:01 AM CDT Pulse 74 07/20/2017 11:01 AM CDT Temperature 36.6 C (97.9 F) 07/20/2017 11:01 AM CDT Respiratory Rate 18 07/20/2017 11:01 AM CDT Oxygen Saturation 98% 07/20/2017 11:01 AM CDT Inhaled Oxygen Concentration - - Weight 127 kg (280 lb) 07/20/2017 11:01 AM CDT Height 170.2 cm (5' 7) 07/20/2017 11:01 AM CDT Body Mass Index 43.85 07/20/2017 11:01 AM CDT Plan of Treatment Health Maintenance Due Date Last Done Comments HIV SCREENING 2005 HEPATITIS C SCREENING 05/08/2008 DTAP/TDAP/TD VACCINES (1 - Tdap) 2009 HEPATITIS B VACCINE (1 of 3 - 19+ 3-dose series) 2009 HPV VACCINE (1 - 3-dose SCDM series) 2017 DEPRESSION SCREENING 03/11/2024 COVID-19 VACCINE (1 - 2023-2 5 season) 2024 INFLUENZA VACCINE (#1) 2024 ZOSTER VACCINE (1 of 2) 2040 HIB VACCINE Aged Out No longer eligi ble based on patient's age to complete this topic MENINGOCOCCAL (Group B) VACC INE SHARED DECISION-MAKING Aged Out No longer eligibl e based on patient's age to complete this topic MENINGOCOCCAL GROUPS A/C/Y/W VACCINE Aged Out No longer eligible b ased on patient's age to complete this topic PNEUMOCOCCAL VACCINE Aged Out No long er eligible based on patient's age to complete this topic Insurance [employer] Care Teams Line Maintainer Section Relationship Specialty Start Date End Date Kellie Lind APRN-CNP [place] [address] PCP - General 12/06/16
--- OUTSIDE RECORDS SUMMARY | 2024-12-13 08:42 | XMS_ITS | Data Portability ---
Author Organization [facility] [place] Address [address] [place] [address] Care Team Providers Care Placement Secretary Name Role Phone JONATHAN, ORVILLE Primary Care Provider Assessment Encounter Date Assessment Date Assessment LastModified by Organization Details LastModified Time 07/03/2021 07/03/2021 covid vaccinated- has card with her Not available 07/03/2021 16:02:22 09/26/2021 09/26/2021 covid vaccinated- has card with her Not available 09/26/2021 11:39:51 06/15/2022 06/15/2022 homestyle direct [phone] Not available 06/15/2022 10:42:42 Plan of Treatment Reminders Order Date Submit Date Provider Last Modified By Organization Details Last Modified Time Details Appointments None recorded. Lab RPR (rapid plasma reagin), serum 2021 [place] [facility], [address], [address], [place], [address], 04:06:51 hepatitis B surface Ab, qualitativ e, serum 2021 [place] [facility], [address]ondo, [address], [place], [address], 04:06:50 HIV 1 + 2, meaningful use set 2021 [place] [facility], 20[address] Mar[address]ondo, [address], [place], [address], 2 04:06:51 chlamydia trachomati s + neisseria gonorrhoea e + trichomona s vaginalis DNA panel, MARIELLE+probe, unspecifie d specimen 2021 022 [facility], 2022 Marjorie Arredondo, [address], [place], [address], 2 04:06:50 hepatitis C Ab, signal-to- cutoff, serum or plasma 2021 022 [facility], 2022 Marjorie Arredondo, [address], [place], [address], 2 04:06:49 HIV 1 + 2, meaningful use set 2021 [facility], 2022 Marjorie Arredondo, [address], [place], [address], 2 03:07:38 chlamydia trachomati s + neisseria gonorrhoea e + trichomona s vaginalis DNA panel, MARIELLE+probe, unspecifie d specimen 2021 [facility], 2022 Marjorie Arredondo, [address], [place], [address], 2 03:07:35 hepatitis C Ab, signal-to- cutoff, serum or plasma 2021 022 [facility], 2022 Marjorie Arredondo, [address], [place], [address], 2 03:07:35 RPR (rapid plasma reagin), serum 2021 022 [email or web address], [address]ondo, [address], [place], [address], 2 15:56:06 HBsAg (hepatitis B surface Ag), EIA, serum 2021 [place] [facility], 20[address]ondo, [address], [place], [address], 2 03:07:39 hepatitis B surface Ab, qualitativ e, serum 2021 [place] [facility], 20[address], [address], [place], [address], 2 03:07:37 HCG, intact + beta subunit, quant, serum or plasma 2021 [place] [facility], 20[address] Mar[address]ondo, [address], [place], [address], 2 03:07:37 HbA1c (hemoglobi n A1c), blood 2021 [place] [facility], [address] Mar[address]ondo, [address], [place], [address], 2 03:07:36 lipid panel, serum 2021 [place] [facility], 20[address] Mar[address]redondo, [address], [place], [address], 2 03:07:34 TSH + free T4, serum 2021 [facility], 2022 Mar[address], [address], [place], [address], 2 03:07:33 CMP, serum or plasma 2021 [place] [facility], 2022 Mar[address]ondo, [address], [place], [address], 2 03:07:33 vitamin D, 25-hydroxy , total, serum 2021 [place] [facility], 2022 Marjor[address]ondo, [address], [place], [address], 2 03:07:38 RPR (rapid plasma reagin), serum 2021 [facility], [address], [place], [address], 10:09:25 HIV 1 + 2, meaningful use set 2021 [place] [facility], 20[address] Mar[address]ondo, [address], [place], [address], 16:15:24 chlamydia trachomati s + neisseria gonorrhoea e + trichomona s vaginalis DNA panel, MARIELLE+probe, unspecifie d specimen 2021 [facility], 20[address] Mar[address]redondo, [address], [place], [address], 16:03:45 hepatitis C Ab, signal-to- cutoff, serum or plasma 2021 [facility], [address] Mar[address]ondo, [address], [place], [address], 16:03:45 test, urine 2021 [place] In-Office Order, Internal Use Only DO Not Attach Compendium DO Not Attach Compendium, Do Not Delete/merge, [id number] 16:11:00 HbA1c (hemoglobi n A1c), blood 2021 [facility], [address], [place], [address], 16:03:45 lipid panel, serum 2021 [facility], [address], [place], [address], 16:03:45 CMP, serum or plasma 2021 [facility], [address], [place], [address], 2 16:03:45 TSH + free T4, serum 2021 [place] [facility], [address], [place], [address], 16:05:15 vitamin D, 25-hydroxy , total, serum 2021 [facility], [address], [place], [address], 16:03:45 CT + NG + TV, DNA, urine/swab 2020 [facility], 2022 Marjor[address] Arredondo, [address], [place], [address], 03:07:22 HIV 1+2 AB + HIV 1 p24 Ag, qualitativ e immunoassa y, serum 2020 [place] [facility], 20[address] Marjor[address]redondo, [address], [place], [address], 09:14:46 RPR (rapid plasma reagin), serum 2020 [facility], 2022 Marjorie Arredondo, [address], [place], [address], 1 09:14:45 hepatitis panel (A+B+C), acute, serum 2020 021 [facility], 2022 Marjorie Arredondo, [address], [place], [address], 1 09:14:43 hsv (1+2) igg Ab, serum 2020 021 [facility], 2022 Marjorie Arredondo, [address], [place], [address], 1 09:14:44 CBC w/ auto diff 2020 021 [place] [facility], 2022 Marjorie Arredondo, [facility] [address], [place], [address], 1 09:14:43 Referral eye clinic manager [facility], [address] , [facility] [address], [place], [address], 2 15:02:38 Procedures polysomnog fariha, split night (PROC) [address] [facility], [address] [place], [address], 2 16:03:46 Surgeries None recorded. Imaging US, thyroid [address] (Imaging), [address] [facility] [address], [place], [address], 3 16:18:09 Medication Orders bacitracin zinc 500 unit-polym yxin B 10,000 unit/gram topical ointment 2021 023 [place] [id number], [address] [facility], [place], [place], [id number], 3 10:21:56 Patient TargetsNo targets recorded. 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) [address] [place], [address], 08/23/2020 09:14:42 08/23/1908/23/2020 CBC w/ auto diff RBC 4.15 x10e6 /uL 3.77-5 .28 Not Available [facility] ([facility]) [address] [place], [address], 08/23/2020 09:14:42 08/23/1908/23/2020 CBC w/ auto diff hemoglobin 12.8 g/dL 11.1-1 5.9 Not Available [facility] ([facility]) [address] [place], [address], 08/23/2020 09:14:42 08/23/1908/23/2020 CBC w/ auto diff hematocrit 38.2 % 34.0-4 6.6 Not Available [facility] ([facility]) [address] [place], [address], 08/23/2020 09:14:42 08/23/1908/23/2020 CBC w/ auto diff MCV 92 fL 79-97 Not Available [facility] ([facility]) [address] [place], [address], 08/23/2020 09:14:42 08/23/1908/23/2020 CBC w/ auto diff MCH 30.8 pg 26.6-3 3.0 Not Available [facility] ([facility]) [address] [facility], [place], [address], 08/23/2020 09:14:42 08/23/19 21 08/23/2020 CBC w/ auto diff MCHC 33.5 g/dL 31.5-3 5.7 Not Available [facility] ([facility]) [address] [facility], [place], [address], 08/23/2020 09:14:42 08/23/19 21 08/23/2020 CBC w/ auto diff RDW 13.3 % 11.7-1 5.4 Not Available [facility] ([facility]) [address] [facility], [place], [address], 08/23/2020 09:14:42 08/23/19 21 08/23/2020 CBC w/ auto diff platelets 321 x10e3 /uL 150-45 0 Not Available [facility] ([facility]) [address] [facility], [place], [address], 08/23/2020 09:14:42 08/23/1908/23/2020 CBC w/ auto diff neutrophils 62 % not estab. Not Available [facility] ([facility]) [address] [facility], [place], [address], 08/23/2020 09:14:42 08/23/1908/23/2020 CBC w/ auto diff lymphs 28 % not estab. Not Available [facility] ([facility]) [address] [facility], [place], [address], 08/23/2020 09:14:42 08/23/1908/23/2020 CBC w/ auto diff monocytes 6 % not estab. Not Available [facility] ([facility]) [address] [facility], [place], [address], 08/23/2020 09:14:42 08/23/19 21 08/23/2020 CBC w/ auto diff eos 3 % not estab. Not Available [facility] ([facility]) [address] [place], [address], 08/23/2020 09:14:42 08/23/19 21 08/23/2020 CBC w/ auto diff basos 1 % not estab. Not Available [facility] ([facility]) [address] [place], [address], 08/23/2020 09:14:42 08/23/19 21 08/23/2020 CBC w/ auto diff immature cells ADMIN DIR Not Available [facility] ([facility]) [address] [place], [address], 08/23/2020 09:14:42 08/23/19 21 08/23/2020 CBC w/ auto diff neutrophils (absolute) 4.5 x10e3 /uL 1.4-7. 0 Not Available [facility] ([facility]) [address] [place], [address], 08/23/2020 09:14:42 08/23/1908/23/2020 CBC w/ auto diff lymphs (absolute) 2.0 x10e3 /uL 0.7-3. 1 Not Available [facility] ([facility]) [address] [place], [address], 08/23/2020 09:14:42 08/23/19 21 08/23/2020 CBC w/ auto diff monocytes(ab solute) 0.4 x10e3 /uL 0.1-0. 9 Not Available [facility] ([facility]) [address] [place], [address], 08/23/2020 09:14:42 08/23/19 21 08/23/2020 CBC w/ auto diff eos (absolute) 0.2 x10e3 /uL 0.0-0. 4 Not Available [facility] ([facility]) [address] [place], [address], 08/23/2020 09:14:42 08/23/19 21 08/23/2020 CBC w/ auto diff baso (absolute) 0.0 x10e3 /uL 0.0-0. 2 Not Available [facility] ([facility]) [address] [facility], [place], [address], 08/23/2020 09:14:42 08/23/19 21 08/23/2020 CBC w/ auto diff immature granulocytes 0 % not estab. Not Available [facility] ([facility]) [address] [facility] [place], [address], 08/23/2020 09:14:42 08/23/19 21 08/23/2020 CBC w/ auto diff immature grans (abs) 0.0 x10e3 /uL 0.0-0. 1 Not Available [facility] ([facility]) [address] [facility], [place], [address], 08/23/2020 09:14:42 08/23/19 21 08/23/2020 CBC w/ auto diff NRBC ADMIN DIR Not Available [facility] ([facility]) [address] [facility], [place], [address], 08/23/2020 09:14:42 08/23/1908/23/2020 CBC w/ auto diff hematology comments: ADMIN DIR Not Available [facility] ([facility]) [address] [facility], [place], [address], 08/23/2020 09:14:42 08/23/1908/23/2020 hepat itis panel (A+B+ C), acute , serum hep A Ab, IgM Negati ve negati ve Not Available [facility] ([facility]) [address] [facility], [place], [address], 08/23/2020 09:14:43 08/23/19 21 08/23/2020 hepat itis panel (A+B+ C), acute , serum HBsAg screen Negati ve negati ve Not Available [facility] ([facility]) [address] [facility], [place], [address], 08/23/2020 09:14:43 08/23/19 21 08/23/2020 hepat itis panel (A+B+ C), acute , serum hep B core Ab, IgM Negati ve negati ve Not Available [facility] ([facility]) [address] [facility], [place], [address], 08/23/2020 09:14:43 08/23/19 21 08/23/2020 hepat itis panel (A+B+ C), acute , serum hep C virus Ab <0.1 s/co_ ratio 0.0-0. 9 Negat tony: < 0.8 Indet ermin ate: 0.8 - 0.9 Posit tony: > 0.9 The CDC recom mends that a posit tony HCV antib dolly resul t be follo wed up with a HCV Nucle ic Acid Ampli ficat ion test (5507 13). Not Available [facility] ([facility]) [address] [facility], [place], [address], 08/23/2020 09:14:43 08/23/1908/23/2020 hsv (1+2) igg Ab, serum hsv 1 IgG, type spec <0.91 index 0.00-0 .90 Negat tony <0.91 Equiv ocal 0.91 - 1.09 Posit tony >1.09 Note: Negat tony indic ates no antib odies detec josé to HSV-1 . Equiv ocal may sugge st early infec tion. If clini kaci appro priat e, retes t at later date. Posit tony indic ates antib odies detec josé to HSV-1 . Not Available [facility] ([facility]) [address] [facility], [place], [address], 08/23/2020 09:14:44 08/23/19 21 08/23/2020 hsv (1+2) igg Ab, serum hsv 2 IgG, type spec 22.00 index 0.00-0 .90 above high normal Negat tony <0.91 Equiv ocal 0.91 - 1.09 Posit tony >1.09 Note: Negat tony indic ates no antib odies detec josé to HSV-2 . Equiv ocal may sugge st early infec tion. If clini kaci appro priat e, retes t at later date. Posit tony indic ates antib odies detec josé to HSV-2 . Not Available [facility] ([facility]) [address] [place], [address], 08/23/2020 09:14:44 08/23/1908/23/2020 RPR (rapi d plasm a reagi n), serum RPR Non Reacti ve non reacti ve Not Available [facility] ([facility]) [address] [place], [address], 08/23/2020 09:14:45 08/23/1908/23/2020 HIV 1+2 AB + HIV 1 p24 Ag, quali tativ e immun oassa y, serum HIV screen 4TH generation wrfx Non Reacti ve non reacti ve Not Available [facility] ([facility]) [address] [place], [address], 08/23/2020 09:14:46 08/23/1908/24/2020 CT + NG + TV, DNA, urine /swab chlamydia by MARIELLE Negati ve negati ve Not Available [facility] ([facility]) [address] [place], [address], 08/24/2020 03:07:22 08/23/1908/24/2020 CT + NG + TV, DNA, urine /swab gonococcus by MARIELLE Negati ve negati ve Not Available [facility] ([facility]) [address] [place], [address], 08/24/2020 03:07:22 08/23/19 21 08/24/2020 CT + NG + TV, DNA, urine /swab trich vag by MARIELLE Negati ve negati ve Not Available [facility] ([facility]) [address] [facility], [place], [address], 08/24/2020 03:07:22 08/23/19 21 08/23/2020 hsv (1+2) igg Ab, serum hsv 1 IgG, type spec <0.91 index 0.00-0 .90 Negat tony <0.91 Equiv ocal 0.91 - 1.09 Posit tony >1.09 Note: Negat tony indic ates no antib odies detec josé to HSV-1 . Equiv ocal may sugge st early infec tion. If clini kaci appro priat e, retes t at later date. Posit tony indic ates antib odies detec josé to HSV-1 . Not Available [facility] ([facility]) [address] [facility], [place], [address], 08/24/2020 03:07:23 08/23/19 21 08/23/2020 hsv (1+2) igg Ab, serum hsv 2 IgG, type spec 20.40 index 0.00-0 .90 above high normal Negat tony <0.91 Equiv ocal 0.91 - 1.09 Posit tony >1.09 Note: Negat tony indic ates no antib odies detec josé to HSV-2 . Equiv ocal may sugge st early infec tion. If clini kaci appro priat e, retes t at later date. Posit tony indic ates antib odies detec josé to HSV-2 . Not Available [facility] ([facility]) [address] [facility], [place], [address], 08/24/2020 03:07:23 07/05/1907/04/2021 pregn alma test, urine HCG negati ve Not Available In-Office Order Internal Use Only DO Not Attach Compendium DO Not Attach Compendium, Do Not Delete/merge, [id number] 07/03/2021 15:27:13 09/27/19 22 09/27/2021 TSH+F REE T4 TSH 1.530 uIU/m L 0.450- 4.500 Not Available [facility] ([facility]) [address] [facility], [place], [address], 09/28/2021 03:07:32 09/27/19 22 09/27/2021 TSH+F REE T4 T4,free(dire ct) 1.30 NG/dL 0.82-1 .77 Not Available [facility] ([facility]) [address] [place], [address], 09/28/2021 03:07:32 09/27/19 22 09/27/2021 COMP. METAB OLIC PANEL (14) glucose 85 mg/dL 65-99 Not Available [facility] ([facility]) [address] [place], [address], 09/28/2021 03:07:33 09/27/19 22 09/27/2021 COMP. METAB OLIC PANEL (14) BUN 8 mg/dL 6-20 Not Available [facility] ([facility]) [address] [place], [address], 09/28/2021 03:07:33 09/27/19 22 09/27/2021 COMP. METAB OLIC PANEL (14) creatinine 0.61 mg/dL 0.57-1 .00 Not Available [facility] ([facility]) [address] [place], [address], 09/28/2021 03:07:33 09/27/19 22 09/27/2021 COMP. METAB OLIC PANEL (14) eGFR 122 mL/mi n/1.7 3 >59 Not Available [facility] ([facility]) [address] [place], [address], 09/28/2021 03:07:33 09/27/19 22 09/27/2021 COMP. METAB OLIC PANEL (14) BUN/creatini ne ratio 13 9-23 Not Available [facility] ([facility]) [address] [facility], [place], [address], 09/28/2021 03:07:33 09/27/19 22 09/27/2021 COMP. METAB OLIC PANEL (14) sodium 138 mmol/ L 134-14 4 Not Available [facility] ([facility]) [address] [facility], [place], [address], 09/28/2021 03:07:33 09/27/19 22 09/27/2021 COMP. METAB OLIC PANEL (14) potassium 4.1 mmol/ L 3.5-5. 2 Not Available [facility] ([facility]) [address] [facility], [place], [address], 09/28/2021 03:07:33 09/27/19 22 09/27/2021 COMP. METAB OLIC PANEL (14) chloride 102 mmol/ L 96-106 Not Available [facility] ([facility]) [address] [facility], [place], [address], 09/28/2021 03:07:33 09/27/19 22 09/27/2021 COMP. METAB OLIC PANEL (14) carbon dioxide, total 25 mmol/ L 20-29 Not Available [facility] ([facility]) [address] [facility], [place], [address], 09/28/2021 03:07:33 09/27/19 22 09/27/2021 COMP. METAB OLIC PANEL (14) calcium 9.3 mg/dL 8.7-10 .2 Not Available [facility] ([facility]) [address] [facility], [place], [address], 09/28/2021 03:07:33 09/27/19 22 09/27/2021 COMP. METAB OLIC PANEL (14) protein, total 7.4 g/dL 6.0-8. 5 Not Available [facility] ([facility]) [address], [place], [address], 09/28/2021 03:07:33 09/27/19 22 09/27/2021 COMP. METAB OLIC PANEL (14) albumin 4.4 g/dL 3.8-4. 8 Not Available [facility] ([facility]) [address], [place], [address], 09/28/2021 03:07:33 09/27/19 22 09/27/2021 COMP. METAB OLIC PANEL (14) globulin, total 3.0 g/dL 1.5-4. 5 Not Available [facility] ([facility]) [address] [facility], [place], [address], 09/28/2021 03:07:33 09/27/19 22 09/27/2021 COMP. METAB OLIC PANEL (14) A/G ratio 1.5 1.2-2. 2 Not Available [facility] ([facility]) [address] [facility], [place], [address], 09/28/2021 03:07:33 09/27/19 22 09/27/2021 COMP. METAB OLIC PANEL (14) bilirubin, total 0.5 mg/dL 0.0-1. 2 Not Available [facility] ([facility]) [address] [facility], [place], [address], 09/28/2021 03:07:33 09/27/19 22 09/27/2021 COMP. METAB OLIC PANEL (14) alkaline phosphatase 80 IU/L 44-121 Not Available [facility]) [address] [facility], [place], [address], 09/28/2021 03:07:33 09/27/19 22 09/27/2021 COMP. METAB OLIC PANEL (14) AST (SGOT) 18 IU/L 0-40 Not Available [facility] ([facility]) [address] [facility], [place], [address], 09/28/2021 03:07:33 09/27/19 22 09/27/2021 COMP. METAB OLIC PANEL (14) ALT (SGPT) 16 IU/L 0-32 Not Available [facility] ([facility]) [address] [facility], [place], [address], 09/28/2021 03:07:33 09/27/19 22 09/27/2021 LIPID PANEL cholesterol, total 166 mg/dL 100-19 9 Not Available [facility] ([facility]) [address] [place], [address], 09/28/2021 03:07:34 09/27/19 22 09/27/2021 LIPID PANEL triglyceride s 36 mg/dL 0-149 Not Available [facility] ([facility]) [address] [place], [address], 09/28/2021 03:07:34 09/27/19 22 09/27/2021 LIPID PANEL HDL cholesterol 55 mg/dL >39 Not Available [facility]) [address] [place], [address], 09/28/2021 03:07:34 09/27/19 22 09/27/2021 LIPID PANEL VLDL cholesterol jayant 8 mg/dL 5-40 Not Available [facility] ([facility]) [address] [place], [address], 09/28/2021 03:07:34 09/27/19 22 09/27/2021 LIPID PANEL LDL chol calc ([facility]) 103 mg/dL 0-99 above high normal Not Available [facility] ([facility]) [address] [place], [address], 09/28/2021 03:07:34 09/27/19 22 09/27/2021 LIPID PANEL comment: ADMIN DIR Not Available [facility] ([facility]) [address] [place], [address], 09/28/2021 03:07:34 09/27/19 22 09/27/2021 CT, NG, TRICH VAG BY MARIELLE chlamydia by MARIELLE Negati ve negati ve Not Available [facility] ([facility]) [address] [place], [address], 09/28/2021 03:07:35 09/27/19 22 09/27/2021 CT, NG, TRICH VAG BY MARIELLE gonococcus by MARIELLE Negati ve negati ve Not Available [facility] ([facility]) [address] [place], [address], 09/28/2021 03:07:35 09/27/19 22 09/27/2021 CT, NG, TRICH VAG BY MARIELLE trich vag by MARIELLE Negati ve negati ve Not Available [facility] ([facility]) [address] [place], [address], 09/28/2021 03:07:35 09/27/19 22 09/27/2021 HCV ANTIB DOLLY RFX TO QUANT PCR HCV Ab <0.1 s/co_ ratio 0.0-0. 9 Not Available [facility] ([facility]) [address] [place], [address], 09/28/2021 03:07:35 09/27/19 22 09/27/2021 HCV ANTIB DOLLY RFX TO QUANT PCR interpretati on: Commen t Negat tony Not infec josé with HCV, unles s recen t infec tion is suspe cted or other evide nce exist s to indic ate HCV infec tion. Not Available [facility] ([facility]) [address] [place], [address], 09/28/2021 03:07:35 09/27/19 22 09/27/2021 HEMOG LOBIN A1C hemoglobin A1C 5.5 % 4.8-5. 6 Predi abete s: 5.7 - 6.4 Diabe michelle: >6.4 Glyce zachary contr ol for adult s with diabe michelle: <7.0 Not Available [facility] ([facility]) [address] [place], [address], 09/28/2021 03:07:36 09/27/19 22 09/27/2021 HCG,B ETA SUBUN IT, QNT HCG,beta subunit,qnt, serum <1 mIU/m L Femal e (Non- pregn ant) 0 - 5 (Post menop ausal ) 0 - 8 Femal e (Preg nant) Weeks of Gesta tion 3 6 - 71 4 10 - 750 5 482 - 9199 6 434 - 89712 7 9345 -2529 63 8 51172 -5582 71 9 12390 -3756 10 10 99551 -3790 77 12 12370 -2896 12 14 77720 - 75876 15 44493 - 96743 16 6596 - 87805 17 1073 - 84746 18 3868 - 61772 Jayden ECLIA metho dolog y Not Available [facility] ([facility]) [address] [facility], [place], [address], 09/28/2021 03:07:36 09/27/19 22 09/27/2021 HEP B SURFA CE AB hep B surface Ab, qual Reacti ve Non React tony: Incon siste nt with immun ity, less than 10 mIU/m L React tony: Consi stent with immun ity, great er than 9.9 mIU/m L Not Available [facility] ([facility]) [address] [place], [address], 09/28/2021 03:07:37 09/27/19 22 09/27/2021 VITAM IN D, 25-HY DROXY vitamin D, 25-hydroxy 27.8 NG/mL 30.0-1 00.0 below low normal Vitam in D defic iency has been defin ed by the Insti tute of Medic ine and an Endoc rine Socie ty pract ice guide line as a level of serum 25-OH vitam in D less than 20 ng/mL (1,2) . The Endoc rine Socie ty went on to furth er defin e vitam in D insuf ficie ncy as a level betwe en 21 and 29 ng/mL (2). 1. IOM (Inst itute of Medic ine). 2010. Dieta ry refer ence intak es for calci um and D. Cheyenne sr DC: [facility] . 2. Susan k MF, Binneto ey [place], Aguilar off-F errar i TROTTER, et al. Evalu ation , treat ment, and preve ntion of vitam in D defic iency : an Endoc rine Socie ty clini jayant pract ice guide line. JCEM. 2010; 96(7) :1911 -30. Not Available [facility] ([facility]) [address] [place], [address], 09/28/2021 03:07:38 09/27/19 22 09/27/2021 HIV AB/P2 4 AG WITH REFLE X HIV Ab/P24 Ag screen Non Reacti ve non reacti ve HIV Negat tony HIV-1 /HIV- 2 antib odies and HIV-1 p24 antig en were NOT detec josé. There is no labor atory evide nce of HIV infec tion. Not Available [facility] ([facility]) [address] [place], [address], 09/28/2021 03:07:38 09/27/19 22 09/27/2021 HBSAG SCREE N HBsAg screen Negati ve negati ve Not Available [facility] ([facility]) [address] [place], [address], 09/28/2021 03:07:39 02/24/20 22 02/24/2022 HCV ANTIB DOLLY RFX TO QUANT PCR HCV Ab <0.1 s/co_ ratio 0.0-0. 9 Not Available [facility] ([facility]) [address] [place], [address], 02/26/2022 04:06:49 02/24/20 22 02/26/2022 CT, NG, TRICH VAG BY MARIELLE chlamydia by MARIELLE Negati ve negati ve Not Available [facility] ([facility]) [address] [place], [address], 02/26/2022 04:06:49 02/24/20 22 02/26/2022 CT, NG, TRICH VAG BY MARIELLE gonococcus by MARIELLE Negati ve negati ve Not Available [facility] ([facility]) [address] [place], [address], 02/26/2022 04:06:49 02/24/20 22 02/26/2022 CT, NG, TRICH VAG BY MARIELLE trich vag by MARIELLE Negati ve negati ve Not Available [facility] ([facility]) [address] [place], [address], 02/26/2022 04:06:49 02/24/20 22 02/24/2022 HEP B SURFA CE AB hep B surface Ab, qual Reacti ve Non React tony: Incon siste nt with immun ity, less than 10 mIU/m L React tony: Consi stent with immun ity, great er than 9.9 mIU/m L Not Available [facility] ([facility]) [address] [place], [address], 02/26/2022 04:06:50 02/24/20 22 02/24/2022 HIV AB/P2 4 AG WITH REFLE X HIV Ab/P24 Ag screen Non Reacti ve nonrea ctive HIV Negat tony HIV-1 /HIV- 2 antib odies and HIV-1 p24 antig en were NOT detec josé. There is no labor atory evide nce of HIV infec tion. Not Available [facility] ([facility]) [address] [place] [address], [address], 02/26/2022 04:06:51 02/24/20 22 02/24/2022 RPR, RFX QN RPR/C ONFIR M TP RPR Non Reacti ve nonrea ctive Not Available [facility] ([facility]) [address] [facility], [place], [address], 02/26/2022 04:06:50 02/24/20 22 02/24/2022 INTER PRETA TION: interpretati on: Commen t Negat tony Not infec josé with HCV, unles s recen t infec tion is suspe cted or other evide nce exist s to indic ate HCV infec tion. Not Available [facility] ([facility]) [address] [facility], [place], [address], 02/26/2022 04:06:49 05/03/1905/03/2022 XR, chest , 2 view No observ ation record ed. [id number], [place], [address], 05/03/2022 16:43:31 06/16/19 23 06/15/2022 US, thyro id No observ ation record ed. [address], [place], [address], 06/18/2022 16:49:27 06/19/19 23 06/15/2022 US, thyro id No observ ation record ed. [address] [facility] [address], [place], [address], 06/18/2022 14:30:37 Result Notes None recorded. Problems Name Problem SNOMED Code Status Onset Date Resolution Date Notes Provider Name and Address Organization Details Recorded Time Trichomonal urethritis 26917812 Completed 07/04/2020 ROBERT PHILLIPS Attn: Hien crocker,[address] [facility], [place], [address], [place] - [facility] 1 13:29:34 Genital herpes simplex 25130782 Active 2020 ROBERT PHILLIPS Attn: Hien crocker,[address] [facility], [place], [address], [place] 04/26/202 1 13:29:28 Body mass index 40+ - severely obese 836667648 Active 2020 ROBERT PHILLIPS Attn: Hien crocker,[address] [facility], [place], [address], [place] - [place] 1 13:38:26 Morbid obesity 915389239 Active 2022 ROBERT PHILLIPS Attn: Hine crocker,[address] [place], [address], [place] - [place] 3 11:48:58 Goiter 1636052 Active 2022 ROBERT PHILLIPS Attn: Hien crocker,[address] [facility], [place], [address], [facility] - [facility] 3 11:48:59 Notes:Learning disability Problem Notes None recorded. Medical Equipment None Reported. Allergies No known drug allergies Medications Name Sig Start Date Stop Date Status Note LastModified by Organization Details LastModified Time cyclobenzap rine 10 mg tablet TAKE 1 TABLET BY MOUTH THREE TIMES DAILY NEEDED FOR MUSCLE SPASM 07/03 completed Not Available Not Available Not Available amoxicillin 500 mg capsule 09/23 completed Not Available Not Available Not Available cetirizine 10 mg tablet 06/28 completed Not Available Not Available Not Available Lidocaine Viscous 2 % mucosal solution 09/23 completed Not Available Not Available Not Available fluconazole 150 mg tablet TAKE 1 TABLET BY MOUTH 1 TIME 06/15 completed Not Available Not Available Not Available valacyclovi r 1 gram tablet TAKE 1 TABLET BY MOUTH EVERY 24 HOURS NEEDED FOR 5 DAYS active Not Available Not Available No t Available ranitidine 300 mg tablet 06/28 completed Not Available Not Available Not Available cephalexin 250 mg capsule 06/28 completed Not Available Not Available Not Available hydrocodone 5 mg-acetamin ophen 325 mg tablet 06/28 completed Not Available Not Available Not Available potassium chloride ER 10 mEq tablet,exte nded release 09/23 completed Not Available Not Available Not Available metronidazo le 500 mg tablet TAKE 1 TABLET BY MOUTH TWICE DAILY AFTER MEALS FOR 7 DAYS 06/15 completed Not Available Not Available Not Available acyclovir 400 mg tablet TAKE 1 TABLET BY MOUTH DAILY active Not Available Not Available No t Available tramadol 50 mg tablet 09/23 completed Not Available Not Available Not Available terbinafine HCl 250 mg tablet TAKE 1 TABLET BY MOUTH EVERY DAY 09/26 completed Not Available Not Available Not Available famotidine 20 mg tablet TAKE 1 TABLET BY MOUTH EVERY DAY 07/03 completed Not Available Not Available Not Available baclofen 10 mg tablet TAKE 1 TABLET BY MOUTH THREE TIMES DAILY NEEDED FOR MUSCLE PAIN active Not Available Not Available No t Available hydrocodone 7.5 mg-acetamin ophen 325 mg tablet 06/28 completed Not Available Not Available Not Available ranitidine 150 mg tablet Take 1 tablet twice a day by oral route for 30 days. 06/28 completed Not Available Not Available Not Available ranitidine 300 mg capsule Take 1 capsule every day by oral route. 06/28 completed Not Available Not Available Not Available ranitidine 150 mg capsule 06/28 completed Not Available Not Available Not Available ibuprofen 600 mg tablet TAKE 1 TABLET BY MOUTH THREE TIMES DAILY NEEDED FOR FEVER OR PAIN active Not Available Not Available No t Available albuterol sulfate HFA 90 mcg/actuati on aerosol inhaler INHALE 2 PUFFS PO Q 6 HOURS PRF SOB 06/28 completed Not Available Not Available Not Available fluoxetine 20 mg capsule TAKE 1 CAPSULE BY MOUTH EVERY DAY IN THE MORNING active Not Available Not Available No t Available fluticasone propionate 50 mcg/actuati on nasal spray,suspe nsion active Not Available Not Available Not Available medroxyprog esterone 150 mg/mL intramuscul ar suspension Inject 1 mL every 3 months by intramusc ular route. active Not Available Not Available No t Available amoxicillin 875 mg-potassiu m clavulanate 125 mg tablet TAKE 1 TABLET BY MOUTH TWICE A DAY FOR 10 DAYS 06/28 completed Not Available Not Available Not Available hydroxyzine pamoate 25 mg capsule TAKE 1 CAPSULE BY MOUTH UP TO EVERY 8 HOURS NEEDED FOR ANXIETY active Not Available Not Available No t Available bacitracin zinc 500 unit-polymy sarah B 10,000 unit/gram topical ointment Apply 2 applicati ons every day by topical route for 14 days. 06/15 completed Not Available Not Available Not Available Chelsy-D 24 Hour 180 mg-240 mg tablet,exte nded release 06/28 completed Not Available Not Available Not Available [facility] with Large Mask USE DIRECTED active Not Available Not Available No t Available Fluzone Quad 2017-18(PF) 60 mcg(15 mcgx4)/0.5 mL intramuscul ar syringe active Not Available Not Available N ot Available Vitals Date Recorded Body height Body mass index (BMI) Body weight Heart rate Oxygen saturation Oxygen saturation in Arterial blood by Pulse oximetry Systolic And Diastolic Provider Name and Address Organization Details Last Updated DateTime 3 170.18 cm 48.1 kg/m2 014676. 56 g 69 /min 99 % 99 % 122/70 mm[Hg] Eileen Carroll MA [facility] 3 10:20:38 Date Recorded Body height Body mass index (BMI) Body weight Heart rate Oxygen saturation Oxygen saturation in Arterial blood by Pulse oximetry Systolic And Diastolic Provider Name and Address Organization Details Last Updated DateTime 2 170.18 cm 47.1 kg/m2 243365. 51 g 77 /min 100 % 100 % 120/82 mm[Hg] Eileen Carroll MA [facility] 2 15:09:35 Date Recorded Body height Body mass index (BMI) Body weight Heart rate Body temperature Respiratory rate Oxygen saturation Oxygen saturation in Arterial blood by Pulse oximetry Systolic And Diastolic Provider Name and Address Organization Details Last Updated DateTime 2 170.18 cm 46.7 kg/m2 837564. 53 g 72 /min 98 [degF] 16 /min 99 % 99 % 120/82 mm[Hg] Javid Raymundo MA [facility] 2 11:24:42 Social History Question Answer Notes LastModified by Organizat ion Details LastModified Time Tobacco Smoking Status Never Smoker Dahlia lyle [facility] 04/11/2015 12:38:48 How Many Years Have You Consumed Alcohol? 10 Information not available 09/26/2021 In The 14 Days Before Symptom Onset, Have You Had Close Contact With A Laboratory-confirm ed COVID-19 While That Case Was Ill? No Information n ot available 06/28/2020 In The 14 Days Before Symptom Onset, Have You Had Close Contact With A Person Who Is Under Investigation For COVID-19 While That Person Was Ill? No Information not available 06/28/2020 Have You Been To An Area Known To Be High Risk For COVID-19? No Information not available 06/28/2020 What Was The Date Of Your Most Recent Tobacco Screening? 09/26/2021 Information not available 09/26/2021 What Is Your Relationship Status? Single Information not available 09/26/2021 Are You Sexually Active? Yes Information not available 09/26/2021 Do You Have Smoke And Carbon Monoxide Detectors In Your Home? Yes Information not available 09/26/2021 Are You Passively Exposed To Smoke? No Information no t available 09/26/2021 Has Tobacco Cessation Counseling Been Provided? Yes Information not available 06/28/2020 On What Date Was Tobacco Cessation Counseling Provided? 09/26/2021 Information not available 09/26/2021 Sex: Unknown Functional Status Question Answer Note LastModified by [employer] ion Details LastModified Time Do you use any illicit or recreational drugs? No Information not available 09/26/2021 What is your level of alcohol consumption? Occasional Information not available 09/26/2021 Are you currently employed? 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 Family History Nothing Reported Notes:Cancer Stroke Hyperten franklin Medical History Condition Response Coronary Artery Disease N Other N High Blood Pressure N Atrial Fibrillation N Kidney or Bladder Problems N Thyroid Problems N GI Problems N Depression N COPD N Blood Clots N Skin Problems N Anemia N Heart Attack ([place]) N Anxiety Disorder N Diabetes N Muscle, Joint, or Bone Problems N Seizures/Epilepsy N Acid Reflux (GERD) N Cancer N Stroke N Asthma N Allergies N High Cholesterol N Hepatitis N Liver Disease N Headaches N Heart Failure N Osteoporosis N Gynecological History Statement/Question Response Date of LMP 07/01/2021 Obstetrics History GPAL:G 2 P 1 0 1 2 Type Value Multiple Births 1 Full Term 1 Induced 0 Spontaneous 1 Premature 0 Living 2 Ectopics 0 Total 2 Immunizations Vaccine Type Date Status Note Provider Nam e and Address Organization Details Recorded Time COVID-19, mRNA, LNP-S, PF, 100 mcg/0.5mL dose or 50 mcg/0.25mL dose 06/14/2020 completed Eileen Carroll MA [facility], [place] - [facility] 06/28/2020 15:55:37 Past Encounters Encounter ID Performer Location Encounter Start Date Encounter Closed Date Diagnosis/Indication Diagnosis SNOMED-CT Code Diagnosis ICD10 Code Diagnosis IMO Codes Diagnosis Note [id number] Shmuel Calloway PA-C [facility] [address] [place] [address] 04/11/2015 12:23:55 04/11/2015 13:08:46 Venereal disease screening 819385446 Z11.3 [id number] HAKAN Mosqueda [facility] [address] [place] [address] 09/27/2016 15:35:22 09/28/2016 11:20:11 test negative 607158339 Z32.02 Venereal d isease screening 945578986 Z11.3 [id number] MASOUD Hansen NP [facility] [address] [place] [address] 09/23/2017 13:33:30 09/25/2017 15:01:15 Pain of breast 85984280 N64.4 -Pain left breast, no lumps-Obta in diagnostic mammo left breast Adult heal th examination 611588409 Z00.00 -Obtain labs HIV screening 615978111 Z11.4 Fluid leve l behind tympanic membrane 035350450 H65.03 -Refer to ENT-Contin ue use of flonase, antihistam tori [id number] MASOUD Hansen NP [facility] [address] [place] [address] 01/07/2018 12:17:50 01/07/2018 13:03:40 Gastroesophageal reflux disease 728142317 K21.9 -Renew ranitidine Sleep harry morgan disturbance 45859865 G47.9 -Refer to sleep medicine [id number] MASOUD Hansen NP [facility] [address] [place] [address] 02/17/2018 14:59:07 02/17/2018 16:22:44 Contraception care management 987617863 Z30.9 -Preg test negative-D epo given as directed-F /u 3 months as directed [id number] Giana Marti MD [facility] [address] [place] [address] 04/23/2018 12:31:15 04/28/2018 09:56:42 Plantar fasciitis 239726319 M72.2 stretching exercises, april wraps, ibuprofen, and shoes with soft soles and good arch supports recommende d. Do not go barefoot. Uses depot contraception 661695141 Z30.42 Patient has recently restarted use of DepoProver a and is having heavy irregular bleeding; advised this can last for several months. Body mass index 40+ - severely obese 592338899 Z68.41 10 pound weight loss over the past 7 months. discussed low fat, low carb diet, and encouraged exercise. [id number] MASOUD Hansen NP [facility] [address] [place] [address] 05/15/2018 10:28:36 05/15/2018 11:19:42 Contraception care 686203543 Z30.40 [id number] ROBERT PHILLIPS [facility] [address] [place] [address] 06/28/2020 15:41:11 07/05/2020 06:54:42 Genital herpes simplex 97122224 A60.9 patient has not had outbreak in > one year. follows OBGYN [place]. Adult [facility] examination 059955328 Z00.00 patient coming back for labs. wanted to establish here today. complaint of hyperpigme ntation of tongue. This has been looked at by ENT, BX obtained and it was normal. - increase exercise - disucssed diet and weight loss - f/u yearly or prn Body mass index 40+ - severely obese 076654678 Z68.41 discussed low fat, low carb diet, and encouraged exercise. [id number] ROBERT PHILLIPS [facility] [address] [place] [address] 08/22/2020 09:47:45 08/22/2020 10:10:48 Adult health examination 449688641 Z00.00 patient coming back for labs. wanted to establish here today. complaint of hyperpigme ntation of tongue. This has been looked at by ENT, BX obtained and it was normal. - increase exercise - disucssed diet and weight loss - f/u yearly or prn [id number] ROBERT PHILLIPS [facility] [address] [place] [address] 07/03/2021 14:55:09 07/05/2021 10:21:13 Morbid obesity 507871719 E66.[address] [facility] ed risk of sexually transmitted infection 348441207 Z20.2 Onychomyco sis of toenails 668671658 B35.1 right first toe Irregular periods 050493 07 N92.6 Sleep apnea 30650777 G47 .30 witness apnea and snoring, daytime somnolence , fam hx of sleep apnea in mom and daughter, obese. - sleep study Pseudomona s aeruginosa infection of nail 137956527 B96.5 left first toe green nail syndrome x 3 months. otc fungal creams not working. will trial bacitracin and f/u one month. [id number] ROBERT PHILLIPS [facility] [address] [place] [address] 09/26/2021 10:51:25 09/27/2021 13:05:01 Morbid obesity 791704538 E66.[address] [facility] ed risk of sexually transmitted infection 681734466 Z20.2 Onychomyco sis of toenails 254857656 B35.1 right first toe Pseudomona s aeruginosa infection of nail 567817341 B96.5 left first toe green nail syndrome x 3 months. otc fungal creams not working. will trial bacitracin and f/u one month. Irregular periods 847890 07 N92.6 Accidental needle stick injury 9827335465 9221973 T14.8XXA needle stick at work. encouraged to let her work know. obtain labs [id number] ROBERT PHILLIPS [facility] [address] [place] [address] 02/23/2022 09:32:41 02/27/2022 15:55:50 Venereal disease screening 806868015 Z11.3 [id number] ROBERT PHILLIPS [facility] [address] [place] [address] 06/15/2022 10:06:11 06/26/2022 16:18:08 Morbid obesity 258317554 E66.01 BMI 48.1disucs sed dietdiscus sed exercisef/ u one month Goiter 1453744 E04.9 goiter on exam, non painfulUS Health Concerns Section Related Observation LastModified by Organization Detai ls LastModified Time None Recorded Concern Status LastModified by Organization Details LastModified Time None Recorded Advance Directives Directive None Recorded Payers Insurance Date Sequence Insurance Name Policy Number Policy Bob Covered Member ID Bob Member ID Guarantor Name 06/15/2022 1 [place] [employer] Carol Jacobo [id number] Carol Jacobo 06/15/2022 1 [facility] (MEDICAID HMO) Carol Jacobo [id number] Carol Jacobo 06/15/2022 1 [facility] PRIOR TO 09/08/2020 (MEDICAID REPLACEMENT - HMO) Carol Jacobo [id number] Carol Jacobo 07/09/2022 1 [facility] - DOS ON OR AFTER 20 (MEDICAID REPLACEMENT - HMO) Carol Jacobo [id number] Carol Jacobo 06/15/2022 1 [facility] (MEDICAID HMO) Carol Jacobo [id number] Carol Jacobo Notes Date Note Type Note Provider Name and Address Organization Details Recorded Time 07/03/2021 text/html Sleep ProblemsRe ported by PatientSleep HPIFor general sleep, patient reportssnoring,witness ed apnea,unrefreshing sleep, andexcessive sleepiness during the day (daytime somnolence). For severity, patient reportsdifficulty getting going in the morning. For quality, patient reportsloud snoringandgasping for air. For associated symptoms, patient reportsfamily history of sleep disorder. For onset/timing, patient reportschronic. For location of sleep apnea, patient reportsno enlarged tonsilsandno nasal passage blockage. For narcolepsy symptoms, patient reportsno cataplexy. For prescribed sleep medications, patient reportsnot taking medication to help sleep.ROS as noted in the HPI Carol is a 31 YO f PMHX Genital herpes, painful and irregular periods Patient presents for check up and labs. worries about ehr weight and getting diabetes. Does endorse an unhealthy diet. has one soda daily. eats large portion of food in one setting. has considered weight loss surgery. has not tried any diets or medications. Patient has been told she may have sleep apnea. States she does gasp for air. She has been told she snores in her sleep and that she may have sleep apnea. She reports daytime sleepiness. mother has sleep apnea and so does daughter. patient has green toe nail that has been resistant to topical triple x and fungal treatment. no drainage, pain, erythema. has been discolored for three months. She does get her nails done at [employer]. Hx of acid reflux. ROBERT PHILLIPS Attn: Accounting,[address] [place], [address], [facility] 07/03/2021 16:04:04 09/26/2021 text/html Sleep ProblemsRe ported by [facility]SMarian [facility] CenterFor general sleep, patient reportssnoring,witness ed apnea,unrefreshing sleep, andexcessive sleepiness during the day (daytime somnolence). For severity, patient reportsdifficulty getting going in the morning. For quality, patient reportsloud snoringandgasping for air. For associated symptoms, patient reportsfamily history of sleep disorder. For onset/timing, patient reportschronic. For location of sleep apnea, patient reportsno enlarged tonsilsandno nasal passage blockage. For narcolepsy symptoms, patient reportsno cataplexy. For prescribed sleep medications, patient reportsnot taking medication to help sleep.ROS as noted in the HPI Carol is a 31 YO f PMHX Genital herpes, painful and irregular periods Patient presents for check up and labs. worries about her weight and getting diabetes. Does endorse an unhealthy diet. has one soda daily. eats large portion of food in one setting. has considered weight loss surgery. has not tried any diets or medications. patient has green toe nail that has been resistant to topical triple x and fungal treatment. no drainage, pain, erythema. has been discolored for three months. She does get her nails done at [facility]. Patient states she had a needle stick at work and has not told her boss. Would like her blood drawn. ROBERT PHILLIPS Attn: Accounting, [facility], [place], [address], [facility] 09/27/2021 09:29:29 06/15/2022 text/html ROS as noted in the HPI Carol is a 32 YO f PMHX Genital herpes, painful and irregular periods worries about her weight and getting diabetes. Does endorse an unhealthy diet. has four sarah suns daily and sweet tea the rest of the day. has cookies most days. eats large portion of food in one setting. does not want weight loss surgery. has not tried any diets or medications. ROBERT PHILLIPS Attn: Accounting, [facility], [place], [address], [facility] 06/26/2022 11:49:22 OBGyn Episode No OBEpisode recorded.
--- OUTSIDE RECORDS SUMMARY | 2024-12-13 08:42 | XMS_ITS | Clinical Summary ---
Author Organization [facility] Address [address] [address] Phone Care Team Providers Care Clinical Program Consultant Name Role Phone Unavailable Primary Care Provider Unavailabl e Allergies No known active allergies Medications No known medications Social History Tobacco Use Types Packs/Day Years Used Date Smoking Tobacco: Never Assessed Comments Unknown Sex and Gender Information Value Date Recorded Sex Assigned at Not on file Legal Sex Female 9:09 AM CDT Gender Identity Not on file Sexual Orientation Not on file Plan of Treatment Health Maintenance Due Date Last Done Comments Hepatitis C Virus (HCV) Screening 1990 Hepatitis B Immunization (1 of 3 - 19+ 3-dose series) 2009 Pap Smear 05/14/2011 Cervical Cancer Screening (CCS) 2020 HPV/Cotest 2020 Influenza Immunization (#1) 11/09/202405/09, 06/14/2017, 01/03/2007 SARS-COV-2 Immunization ( season) 2024 01/30/2021, 07/05/2020, 06/14/2020 Respiratory Syncytial Virus (RSV) Immunization (Adult) (1 - 1-dose 75+ series) 2065 DTaP/Tdap/Td Immunization Discontinued 2006, 10/07/1995, 04/01/1992, Additional history exists TdaP Immunization Completed 07/25/2006 Human Papillomavirus (HPV) Immunization Completed 05/21/2007, 01/03/2007, 07/25/2006 Meningococcal Immunization (ACWY) Aged Out No longer eligible based on patient's age to complete this topic Pneumococcal Immunization Combined Aged Out No longer eligible based on patient's age to complete this topic Rotavirus Immunization Aged Out No lo nger eligible based on patient's age to complete this topic
--- NOTE | 2024-12-13 08:47 | ED_ITS ---
HPI - URI/Sore Throat General Chief Complaint: Upper Respiratory Infection Stated Complaint: Sore throat Time Seen by Provider: 12/13/24 08:45 Source: patient Mode of arrival: ambulatory Limitations: no limitations History of Present Illness HPI Narrative: Patient is a 34-year-old female who presents with itchy throat and cough for 2 days and laryngitis started today. Denies any fever, chills, nausea, vomiting, diarrhea. Has tried cough drops. Related Data Home Medications ?Medication ?Instructions ?Recorded ?Confirmed ?Last Taken ?Type valacyclovir 500 mg tablet mg 12/13/24 Unknown Histor y Allergies Allergy/AdvReac Type Severity Reaction Status Date / Time No Known Allergies Allergy Verified 12/13/24 08:46 Review of Systems Review of Systems: All systems reviewed & are unremarkable except as noted in HPI and below Constitutional: Constitutional: Denies chills, Denies fatigue, Denies fever(s), Denies headache(s), Denies malaise and Denies weakness Eyes: Eyes: Denies blurry vision, Denies itchy eyes and Denies loss of vision ENT: Denies otalgia, Denies headache(s), Reports hoarseness, Reports nasal congestion, Denies sinus pain and Reports sore throat Cardiovascular: Cardiovascular: Denies chest pain, Denies irregular heart r hythm and Denies dyspnea Respiratory: Respiratory: Reports cough and Denies dyspnea Gastrointestinal: Gastrointestinal: Denies abdominal pain, Denies diarrhea, Denies nausea and Denies vomiting Musculoskeletal: Musculoskeletal: Denies back pain, Denies myalgias and Denies arthralgias Integumentary/Breasts: Skin/Breast: Denies pruritus and Denies rash Neurologic: Denies headache(s), Denies loss of vision and Denies weakness Psychiatric: Psychiatric: Reports no additional psychiatric complaints Endocrine: Endocrine: Denies fatigue Allergic/Immunologic: Allergic/Immunologic: Denies itchy eyes PMFSH Past Medical History Medical History Obesity Herpes genitalis GERD (gastroesophageal reflux disease) Surgical History Surgical History Previous section Social History Social History Smoking status: Never smoker Second hand tobacco smoke exposure: Yes Alcohol intake: never Substance use type: does not use Living arrangements: with family Occupation/Education: occupation 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 There is no relevant family history pertinent to the presenting complaint. Exam Const: General: cooperative, healthy appearing, comfortable, no acute distress and well nourished Nutritional Appearance: well nourished Orientation/consciousness: patient oriented x3 Limitations: no limitations HENMT: Head: normal to inspection, normocephalic and atraumatic Ears: hearing grossly normal bilaterally, external ears normal, TM's normal bilaterally, EAC's normal and no periauricular adenopathy Face/Nose/Sinus: Normal external nose present, Abnormal mucous membranes and turbinates present erythematous bilateral and diffuse, normal facial exam, sinuses nontender and face symmetric Face and sinus: normal facial exam, sinuses nontender and face symmetric Mouth: Yes Normal oral and palatal mucosa present, Yes lip normal, Yes tongue normal, Yes Normal salivary glands and ducts present, Yes oropharynx normal and Yes moist mucous membranes Teeth and gingiva: dentition normal Throat: posterior oropharynx normal, tonsils normal and uvula midline Eyes: General: appearance normal, both eyes and all related structures Alignment and Position: alignment normal and position normal Periorbital: periorbital findings normal Eyelids: eyelids normal Pupils: Equal, round and reactive pupils present Neck: Neck: normal visual inspection, full ROM, no lymphadenopathy and supple Chest: Chest palpation & inspection: normal inspection of the chest and normal palpation of entire chest wall Resp: Effort & Inspection: normal respiratory effort and able to speak in complete sentences Auscultation: clear to auscultation bilaterally, no crackles, no rales, no rhonchi and no wheezes Cardio: Rate: regular rate Rhythm: regular rhythm Heart sounds: S1 normal heart sound present and S2 normal heart sound present GI: Inspection: normal to inspection Skin: General skin exam: normal color and no rashes or lesions noted Neuro: General: patient oriented x3 and moves all extremities Cranial nerves: Yes Equal, round and reactive pupils present Speech: normal speech Gait exam (Neuro): Normal gait present Extrem: General: normal to inspection, full ROM and no edema Psych: Appearance: grossly normal and well kempt Mental Status: mental status grossly normal Speech and movement: Normal speech and movement present Affect: normal affect Attitude: cooperative Thought process: Normal thought process present Course Course Emergency Course: Discharge instructions reviewed with patient, as well as provided in writing per nursing staff. The instructions also include specific and strict return/GO TO THE ER as well as f/u information. All questions have been answered, and the patient deny any further questions with discharge and discharge plan. Portions of this record may have been created with voice recognition software Level of Care: Express Care Visit Vital Signs Vital signs: Vital Signs Temperature 36.2 C L 12/13/24 08:56 Pulse Rate 69 12/13/24 08:56 Respiratory Rate 18 12/13/24 08:56 Blood Pressure 126/94 H 12/13/24 08:56 Pulse Oximetry 100 12/13/24 08:56 Oxygen Delivery Room Air 12/13/24 08:56 Temperature 36.2 C L 12/13/24 08:56 Pulse Rate 69 12/13/24 08:56 Respiratory Rate 18 12/13/24 08:56 Blood Pressure 126/94 H 12/13/24 08:56 Pulse Oximetry 100 12/13/24 08:56 Oxygen Delivery Room Air 12/13/24 08:56 Reviewed MDM - URI/Sore Throat MDM Narrative Medical decision making narrative: Pt well hydrated appearing, in no respiratory distress, hemodynamically stable. Recommend supportive care. The patient is stable at time of discharge the clinical impression was discussed and the patient was given the opportunity to ask questions, which were addressed as completely as possible given the information available at present. Anticipatory guidance and return to care precautions were discussed and the importance of primary care follow-up was stressed and encouraged. The patient voiced understanding of the plan, indications to return, and the need for follow-up. Exam findings show no acute concerns or changes Patient is appropriate for outpatient treatment and follow-up. Differential diagnosis considered: Tam virus, strep pharyngitis, allergic rhinitis, upper respiratory tract infection, sinusitis, rhinosinusitis, nasopharyngitis. viral pharyngitis, otitis media, otitis externa, otitis effusion, foreign body, cerumen impaction, viral syndrome, and influenza.? Medical Records Attestation: I reviewed the patient's medical records. Lab Data Attestation: I reviewed the patient's lab results. Labs: Lab Results 12/13/24 Range/Units 09:03 POC Grp A Strep Screen Negative (Negative) Discharge Plan Discharge Clinical Impression: Upper respiratory infection Qualifiers: URI type: acute nasopharyngitis (common cold) Qualified Code(s): J00 - Acute nasopharyngitis [common cold] Patient Disposition: Home Condition: Stable Instructions: Upper Respiratory Infection (ED) Additional Instructions: Your rapid strep swab was negative today at [facility]. A throat culture will be sent to the laboratory for further testing. If the test is positive, you will receive a phone call within 48 hours and an appropriate antibiotic will be initiated at that time. Your symptoms are likely due to a viral illness, which is not treated with antibiotics. Viral symptoms can be present for up to a few weeks. -For pain/fever, you may take: Tylenol 650-1000mg by mouth every 4-6 hours. Do not exceed 4000mg in 24 hours. Advil (Ibuprofen) 600 mg by mouth every 6 hours. Do not exceed 2400mg in 24 hours. 8 AM: Tylenol 11 AM: Ibuprofen 2 PM: Tylenol 5 PM: Ibuprofen 8 PM: Tylenol 11 PM: Ibuprofen 2 AM: Tylenol 5 AM: Ibuprofen -Antihistamine medication such as Benadryl/Zyrtec at night and Claritin/Chelsy during the day can help improve symptoms. -Use Flonase twice a day for 5 days then daily to help reduce the inflammation and dry up your sinuses. -You can also use Sudafed behind the pharmacy counter(12 or 24 hour). Be sure to drink plenty of water with these medications at least 8 ounces with every dose and it is important to drink 8 to 10 glasses of water per day. Water is a natural decongestant -Eat and drink things that are easy to swallow, like tea or soup, or popsicles. -Oral rinses such as: Salt water gargles and/or may use topical anesthetic (eg. Chloraseptic spray) or lozenges to relieve dryness or throat pain). -Frequent hand washing or hand charge nurse is one of the best ways to prevent spread of infection. -Using a vaporizer or humidifier at night will also help thin secretions and help with coughing up phlegm. Call your Primary Care Doctor and make a follow-up appointment in 3 days. If your cough worsens, you develop a fever greater than 103, you develop shaking chills, a fast heartbeat, trouble breathing and/or feel you are are breathing much faster than usual, call your Primary Care Doctor or go to the ER. Your blood pressure was elevated above 120/80 today at Urgent Care. This puts you above the threshold for follow up visit with a primary care provider. High blood pressure does not usually cause any symptoms, however it may lead to kidney failure, stroke, heart disease just to name a few if untreated . Many people are anxious when seeing a provider or nurse. As a result, you are not diagnosed with hypertension at this time unless your blood pressure is persistently high at two office visits at least one week apart. Some things that can help lower blood pressure are lifestyle modifications, such as light exercise, decreased salt in diet, and weight loss. It is important to follow up with a PCP about this within 1 week. Patient Language: Moldovan Prescriptions: New benzonatate 100 mg capsule 100 mg PO BID PRN (Reason: cough) Qty: 14 0RF fluticasone propionate [Flonase Allergy Relief] 50 mcg/actuation spray,suspension 1 spray intranasal DAILY Qty: 16 0RF Rx Instructions: administer into each nostril loratadine 10 mg tablet 10 mg PO DAILY Qty: 30 0RF No Action valacyclovir 500 mg tablet Follow-up/Referrals: Laureen,Bienvenido Guzmán MD [Primary Care Provider, Unknown] - 3 Days Time of Disposition: 09:27
[2024-12-13 08:56] VITALS: BP 126/94; PULSE 69; RESP 18; TEMP 36.2; O2SAT 100
[2024-12-13 09:04] LABS: EDSTREPNEGPOS1 Negative (Negative)
== END 2024-12-13 09:30 | disposition home or self-care (01) ==
PROVIDERS: Emergency Provider Nurse Practitioner Family; PCP Internal Medicine
DX: J00 Acute nasopharyngitis [common cold] (principal); K21.9 Gastro-esophageal reflux disease without esophagitis; E66.9 Obesity, unspecified; Z68.42 Body mass index [BMI] 45.0-49.9, adult
CPT/HCPCS: 87081; 87880; 99213; G0463

== ENCOUNTER 2025-01-14 06:59 | Emergency (ER) | payer OTHER, SELFPAY ==
[2025-01-14 07:13] VITALS: BP 163/104; PULSE 69; RESP 16; TEMP 36.6; O2SAT 100
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
[2025-01-14] MEDS: KETOROLAC 30 MG/ML VIAL (*BKC) IM (07:55)
[2025-01-14] MEDS: ACETAMINOPHEN 500 MG TABLET 1000 MG PO (07:55)
--- OUTSIDE RECORDS SUMMARY | 2025-01-14 16:18 | XMS_ITS | Clinical Summary ---
Author Organization [facility] Address [address] [place] [address] Care Team Providers Care Fruit Press Operator Name Role Phone Kellie Lind APRN-SHINE WORKER Primary Care Provider [phone] Source Comments [facility],non-owned Affiliates and Associated Physician Practices is amultiple site organization consisting of ambulatory clinics and hospital sitesin [place], [place], [place] and [place]. This disclosure is being madepursuant to the Care Everywhere program and may not contain all information available regarding this patient. Last updated 17.[facility] Allergies No known active allergies Medications * Be aware that medications may not be up to date on this document. Alwaysverify current medications with the patient. 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
--- OUTSIDE RECORDS SUMMARY | 2025-01-14 16:18 | XMS_ITS | Clinical Summary ---
Author Organization [facility] Address [address] [place] [address] Care Team Providers Care Sales Floor Team Leader Name Role Phone Harriet Crawford NP Primary Care Provider [phone] Allergies No known active allergies Medications hydrocortisone (ANUSOL-HC) 2.5 % rectal creamIndications: Hemorrhoids Insert into the rectum 4 (four) times a day as needed for hemorrhoids (rectal discomfort) Apply to affected areas 30 g 3 023 Active doxycycline (VIBRAMYCIN) 100 mg capsule Take 1 tablet/capsule (100 mg total) by mouth 2 (two) times a day 20 capsule 025 Active valACYclovir (VALTREX) 1 gram tabletIndications :Herpes simplex vulvovaginitis TAKE 1 TABLET BY MOUTH ONCE DAILY NEEDED FOR BREAKOUT 10 tablet 025 Active valACYclovir (VALTREX) 1 gram tabletIndications :Herpes simplex vulvovaginitis TAKE 1 TABLET BY MOUTH ONCE DAILY NEEDED (BREAKOUT) 10 tablet 025 2024 Discontinued Active Problems Problem Noted Date Diagnosed Date Insect bite of left thigh 07/30/2024 Late menses 02/13/2024 Chills 01/16/2024 Neck pain 03/06/2023 Hemorrhoids 12/12/2022 Overview (12/12/2022): Use hydrocortisone cream 1-4 times daily as needed for discomfort. Get [id number] suppositories as needed. Notify the office without [...] provided. Assessment & Plan (02/13/2024 9:36 AM ANALYTIC PROGRAMMER): Discussed the patient's BMI. The BMI is above average. BMI management plan is completed. BMI Follow-up includes: nutrition counseling, exercise counseling and education provided. Assessment & Plan (03/06/2023 9:08 AM ANALYTIC PROGRAMMER): Discussed the patient's BMI. The BMI is above average. BMI management plan is completed. BMI Follow-up includes: nutrition counseling, exercise counseling and education provided. Class 3 severe obesity due t o excess calories without serious comorbidity with body mass index (BMI) of 45.0 to 49.9 in adult 07/25/2022 Assessment & Plan (01/16/2024 2:04 PM ANALYTIC PROGRAMMER): Discussed the patient's BMI. The BMI is [...] Goiter 06/26/2022 07/25/2022 Genital herpes simplex 07/04/2020 05/17/202 3 JOSIANE (obstructive sleep apnea) 01/29/2018 Overview (01/29/2018): Added automatically from request for surgery [id number] Impacted third molar tooth 01/29/2018 Overview (01/29/2018): Added automatically from request for surgery [id number] Large tonsils 01/29/2018 Overview (01/29/2018): Added automatically from request for surgery [id number] Laryngopharyngeal reflux (LPR) 01/01/2018 Assessment & Plan [...] 03/17/2017 Assessment & Plan (04/01/2017 8:37 AM ANALYTIC PROGRAMMER): A punch biopsy was performed today of the anterior tip of the tongue. Specimen will be submitted in formalin to the pathology Department for histopathologic assessment. Oral hygiene care instructions were discussed. Further treatment recommendations pending results biopsy. Assessment & Plan (03/17/2017 3:52 PM ANALYTIC PROGRAMMER): Patient demonstrates a pigmented oral lesion along [...] 03/17/2017 Assessment & Plan (03/17/2017 3:53 PM ANALYTIC PROGRAMMER): Today's examination demonstrated serous fluid in the [...] on file Legal Sex Female 2:25 PM ANALYTIC PROGRAMMER Gender Identity Not on file Sexual Orientation [...] age to complete this topic Insurance [employer] [facility] [place] [facility] [employer] [facility] [place] Care Teams Sales Floor Team Leader Relationship Specialty Start Date End Date Harriet Crawford NP [address] [address] PCP - General Internal Medicine 07/25/22
--- OUTSIDE RECORDS SUMMARY | 2025-01-14 16:18 | XMS_ITS | Clinical Summary ---
Author Organization [facility] Address [address] [address] Phone Care Team Providers Care Marble Machine Tender Name Role Phone Unavailable Primary Care Provider [...]
--- OUTSIDE RECORDS SUMMARY | 2025-01-14 16:18 | XMS_ITS | Data Portability ---
Author Organization [employer] , [facility] Address [address] [place] [address] Assessment No assessment recorded. Plan of Treatment Reminders Order Date Submit Date Provider Last Modified By Organization Details Last Modified Time Details Appointments None recorded. Lab test, urine 2024 025 [email or web address] [facility], [address] [place], [address], 5 17:06:04 pap, LB 2024 025 [facility], [address] [place], [address], 5 11:43:16 unlisted lab - HPV plus CT/GC/trich 2024 025 [facility], [address] [place], [address], 5 16:11:17 unlisted lab - STD screening ([facility]) 2024 025 [facility], [address] [place], [address], 5 13:33:47 bacterial vaginosis + vaginitis panel, vaginal 2024 025 [facility], [address] [place], [address], 5 13:31:04 urinalysis, dipstick 2024 025 [email or web address] [facility], [address] [place], [address], 5 17:50:38 culture, urine 2024 025 [employer] [facility] [facility], [address] [place], [address], 5 14:51:36 test, urine 2024 025 [email or web address] [facility], [address] [place], [address], 5 17:50:38 CBC w/ auto diff 2024 025 [facility], [address] [place], [address], 5 13:04:31 TSH + free T4, serum 2024 025 [facility], [address] [place], [address], 5 12:17:51 CMP, serum or plasma 2024 025 [facility], [address] [place], [address], 5 12:18:29 insulin, serum 2024 025 [facility] [facility], [address] [place], [address], 5 14:51:35 lh + FSH, serum 2024 025 [facility], [address] [place], [address], 5 11:56:52 testosteron e, free + total, serum 2024 025 [facility], [address] [facility], [place], [address], 14:51:35 STI panel 2023 024 [facility] [place], [address] [place], [address], 14:25:53 Referral None recorded. Procedures None recorded. Surgeries None recorded. Imaging US, transvagina l 2024 025 [email or web address] Not available 14:03:38 Medication Orders valacyclovi r 500 mg tablet 2024 025 [id number] [facility], [address] [place], [address], 11:18:13 phentermine 37.5 mg tablet 2024 025 [id number] [facility], [address] [place], [address], 12:34:48 Depo-Utilization Review Coordinator a 150 mg/mL intramuscul ar syringe 2024 025 [id number] [facility], [address] [place], [address], 11:18:13 phentermine 37.5 mg tablet 2024 025 [email or web address] 8 [facility] 2425, [address] [facility], [place], [address], 13:04:22 Patient TargetsNo targets recorded. Patient Instructions Encounter Date Encounter Id Patient Instructions Last Modified By Organization Details Last Modified Time 12/17/2023 [id number] A healthy lifestyle: care instructions [email or web address] Not available 12/17/2023 11:03:46 Following the [employer] Food Guide: Care Instructions [email or web address] Not available 12/17/2023 11:03:46 exercise program : getting started bnotzke Not available 12/17/2023 11:03:46 contraception information bnotzke Not available 12/17/2023 11:03:46 12/23/2024 [id number] body mass index: care instructions bnotzke Not available 12/23/2024 11:18:10 A healthy lifestyle: care instructions bnotzke Not available 12/23/2024 11:18:10 Following the [employer] Food Guide: Care Instructions [email or web address] Not available 12/23/2024 11:18:10 exercise program : getting started bnotzke Not available 12/23/2024 11:18:10 learning about control bnotzke Not available 12/23/2024 11:18:10 contraception information bnotzke Not available 12/23/2024 11:18:10 Reason for Referral None Reported. Results Created Date Observation Date Name Description Value Unit Range Abnormal Flag Note LastModifiedBy Organization Detail LastModifiedTime 12/17/1912/19/2023 STI PANEL trichomonas vaginalis TRICH neg negati ve normal Not Available [employer] [address] [place], [address], 12/19/2023 14:25:53 12/17/1912/19/2023 STI PANEL chlamydia trachomatis CT neg negati ve normal This repor t is inten ded for us in clini jayant monit oring and manag ement of [facility]. It is not inten ded for use in medic al-le gal appli catio n. Not Available [employer] [address] [place], [address], 12/19/2023 14:25:53 12/17/1912/19/2023 STI PANEL neisseria gonorrhoeae GC neg negati ve normal This repor t is inten ded for us in clini jayant monit oring and manag ement of patie nts. It is not inten ded for use in medic al-le gal appli catio n. Not Available [employer] [address] [place], [address], 12/19/2023 14:25:53 05/06/19 25 05/07/2024 FSH AND LH FSH 20.2 mIU/m L Refer ence Range s are for femal es aged 18 years - Adult Alessandra l Menst ruati ng Femal e: Folli cular phase : 2.5-1 0.2 mIU/m L Mid-C ycle Peak: 3.4-3 3.4 mIU/m L Lutea l phase : 1.5-9 .1 mIU/m L Pregn ant: <0.3 mIU/m L Post- menop ausal : 23.0- 116.6 mIU/m L [place], [address], 05/07/2024 11:56:52 05/06/19 25 05/07/2024 FSH AND LH LH 8.49 U/L Refer ence Range s are for femal es aged 18 years - Adult Alessandra l Menst ruati ng Femal e: Folli cular phase : 1.9-1 2.5 mIU/m L Mid-C ycle Peak: 8.7-7 6.3 mIU/m L Lutea l phase : 0.5-1 6.9 mIU/m L Pregn ant: <0.1- 1.5 mIU/m L Post- menop ausal : 15.9- 54.0 mIU/m L Contr acept mouna: 0.7-5 .6 mIU/m L [place], [address], 05/07/2024 11:56:52 05/06/19 25 05/07/2024 TSH W/ T4, FREE TSH 1.37 mIU/L 0.55 - 4.78 normal Refer ence Range Femal e aged 18-Ad ult: 0.55- 4.78 Pregn alma Refer ence Range s First Trime ster 0.26- 2.66 Secon d Trime ster 0.55- 2.73 Third Trime ster 0.43- 2.91 [place], [address], 05/07/2024 12:17:51 05/06/19 25 05/07/2024 TSH W/ T4, FREE T4, free 1.10 NG/dL 0.89 - 1.76 normal Not Available [address], [address], 05/07/2024 12:17:51 05/06/19 25 05/07/2024 COMPR EHENS EDI METAB OLIC PANEL sodium 143 mmol/ L 136 - 145 normal Not Available [address], [address], 05/07/2024 12:18:29 05/06/19 25 05/07/2024 COMPR EHENS EDI METAB OLIC PANEL potassium 4.3 mmol/ L 3.5 - 5.1 normal Not Available [address], [address], 05/07/2024 12:18:29 05/06/19 25 05/07/2024 COMPR EHENS EDI METAB OLIC PANEL chloride 105 mmol/ L 98 - 107 normal Not Available [address], [address], 05/07/2024 12:18:29 05/06/19 25 05/07/2024 COMPR EHENS EDI METAB OLIC PANEL glucose 78 mg/dL 74 - 106 normal Not Available [address], [address], 05/07/2024 12:18:29 05/06/19 25 05/07/2024 COMPR EHENS EDI METAB OLIC PANEL carbon dioxide 28 mmol/ L 20 - 32 normal Not Available [address], [address], 05/07/2024 12:18:29 05/06/19 25 05/07/2024 COMPR EHENS EDI METAB OLIC PANEL calcium 9.1 mg/dL 8.5 - 10.1 normal Not Available [address], [address], 05/07/2024 12:18:29 05/06/19 25 05/07/2024 COMPR EHENS EDI METAB OLIC PANEL creatinine 0.63 mg/dL 0.60 - 1.00 normal Not Available [address], [address], 05/07/2024 12:18:29 05/06/19 25 05/07/2024 COMPR EHENS EDI METAB OLIC PANEL eGFR 120 mL/mi n/1.7 3m2 >60 normal The eGFR is based on the CKD-E PI 2020 equat ion. To calcu late the new eGFR from a previ ous Creat inine or Cysta jim C resul t, go to https ://darryl interiano.lorrie flood/sweta diaz s/keyo qi/gf r_cal culat or Not Available [address], [address], 05/07/2024 12:18:29 05/06/19 25 05/07/2024 COMPR EHENS EDI METAB OLIC PANEL AST 20 U/L 15 - 37 normal Not Available [address], [address], 05/07/2024 12:18:29 05/06/19 25 05/07/2024 COMPR EHENS EDI METAB OLIC PANEL ALT 25 U/L 14 - 59 normal Not Available [address], [address], 05/07/2024 12:18:29 05/06/19 25 05/07/2024 COMPR EHENS EDI METAB OLIC PANEL alk phos 84 U/L 46 - 116 normal Not Available [address], [address], 05/07/2024 12:18:29 05/06/19 25 05/07/2024 COMPR EHENS EDI METAB OLIC PANEL albumin 4.3 g/dL 3.4 - 5.0 normal Not Available [address], [address], 05/07/2024 12:18:29 05/06/19 25 05/07/2024 COMPR EHENS EDI METAB OLIC PANEL protein, total 8.0 g/dL 6.4 - 8.2 normal Not Available [address], [address], 05/07/2024 12:18:29 05/06/19 25 05/07/2024 COMPR EHENS DEI METAB OLIC PANEL bilirubin, total 0.5 mg/dL 0.2 - 1.0 normal Not Available [address], [address], 05/07/2024 12:18:29 05/06/19 25 05/07/2024 COMPR EHENS EDI METAB OLIC PANEL urea nitrogen (BUN) 18 mg/dL 7 - 18 high Not Available [address], [address], 05/07/2024 12:18:29 05/06/19 25 05/07/2024 CBC (INCL UDES DIFF/ PLT) WBC 8.0 thous and/u L 4.0 - 9.8 normal Not Available [address], [address], 05/07/2024 13:04:31 05/06/19 25 05/07/2024 CBC (INCL UDES DIFF/ PLT) RBC 4.1 anna on/uL 3.9 - 4.9 normal Not Available [address], [address], 05/07/2024 13:04:31 05/06/19 25 05/07/2024 CBC (INCL UDES DIFF/ PLT) hemoglobin 13.0 g/dL 11.8 - 14.8 normal Not Available [address], [address], 05/07/2024 13:04:31 05/06/19 25 05/07/2024 CBC (INCL UDES DIFF/ PLT) hematocrit 39.6 % 35.5 - 44.0 normal Not Available [address], [address], 05/07/2024 13:04:31 05/06/19 25 05/07/2024 CBC (INCL UDES DIFF/ PLT) MCV 97.3 fL 82.0 - 99.0 normal Not Available [address], [address], 05/07/2024 13:04:31 05/06/19 25 05/07/2024 CBC (INCL UDES DIFF/ PLT) MCH 31.9 pg 27.2 - 32.6 normal Not Available [address], [address], 05/07/2024 13:04:31 05/06/19 25 05/07/2024 CBC (INCL UDES DIFF/ PLT) MCHC 32.8 g/dL 31.5 - 35.5 normal Not Available [address], [address], 05/07/2024 13:04:31 05/06/19 25 05/07/2024 CBC (INCL UDES DIFF/ PLT) RDW-CV 12.6 % 11.5 - 14.5 normal Not Available [address], [address], 05/07/2024 13:04:31 05/06/19 25 05/07/2024 CBC (INCL UDES DIFF/ PLT) platelet 376 thous and/u L 140 - 350 high Not Available [address], [address], 05/07/2024 13:04:31 05/06/19 25 05/07/2024 CBC (INCL UDES DIFF/ PLT) MPV 10.7 fL 9.3 - 12.4 normal Not Available [address], [address], 05/07/2024 13:04:31 05/06/19 25 05/07/2024 CBC (INCL UDES DIFF/ PLT) absolute neutrophil 4.60 thous and/u L 1.90 - 7.00 normal Not Available [address], [address], 05/07/2024 13:04:31 05/06/1905/07/2024 CBC (INCL UDES DIFF/ PLT) absolute lymphocyte 2.46 thous and/u L 0.70 - 4.50 normal Not Available [address], [address], 05/07/2024 13:04:31 05/06/19 25 05/07/2024 CBC (INCL UDES DIFF/ PLT) absolute monocyte 0.63 thous and/u L 0.10 - 1.30 normal Not Available [address], [address], 05/07/2024 13:04:31 05/06/19 25 05/07/2024 CBC (INCL UDES DIFF/ PLT) absolute eosinophil 0.23 thous and/u L <0.70 normal Not Available [address], [address], 05/07/2024 13:04:31 05/06/19 25 05/07/2024 CBC (INCL UDES DIFF/ PLT) absolute basophil 0.07 thous and/u L <0.20 normal Not Available [address], [address], 05/07/2024 13:04:31 05/06/1905/07/2024 CBC (INCL UDES DIFF/ PLT) absolute immature granulocyte 0.01 thous and/u L <0.03 normal Not Available [address], [address], 05/07/2024 13:04:31 05/06/19 25 05/19/2024 INSUL IN insulin 12.4 uIU/m L normal Refer ence Range < or = 18.4 Risk: Optim al < or = 18.4 Moder ate NA High >18.4 Adult cardi ovasc ular event risk categ ory cut point s (opti mal, moder ate, high) are based on Insul in Refer ence Inter darius studi es perfo rmed at [facility] in 2021. Not Available [employer] [place] [address] [place], [address], 05/19/2024 14:51:35 05/06/19 25 05/19/2024 TESTO STERO NE, FREE (DIAL YSIS) AND TOTAL ,MS testosterone , total, MS 28 NG/dL 2-45 For addit ional infor matbasilio nclemente e refer to https ://ed ucati on.qu Redeemr/f aq/FA Q165 (This link is being provi ded for infor matio nal/e ducat ional purpo ses only. ) (Note ) This test was devel oped and its phyllis tical perfo rmanc e debra cteri stics have been deter mined by [employer]. It has not been clear ed or appro marlene by the FDA. This assay has been valid ated pursu ant to the CLIA regul ation s and is used for clini jayant purpo ses. Not Available [employer] [address] [address] [address], [place], [address], 05/19/2024 14:51:35 05/06/1905/19/2024 TESTO STERO NE, FREE (DIAL YSIS) AND TOTAL ,MS testosterone , free 3.6 pg/mL 0.1-6. 4 (Note ) This test was devel oped and its phyllis tical perfo rmanc e debra cteri stics have been deter mined by [employer] [facility]. It has not been clear ed or appro marlene by the FDA. This assay has been valid ated pursu ant to the CLIA regul ation s and is used for clini jayant purpo ses. KAROLINA med fusbasilio n [address] [facility] [address] [place] [address] [phone] Aaron Moreira MD, PhD Not Available [facility] [address] [place], [address], 05/19/2024 14:51:35 05/06/19 25 05/19/2024 CULTU RE, URINE , ROUTI NE culture, urine, routine SEE NOTE CULTU RE, URINE , ROUTI NE Micro Numbe r: [id number] Test Statu s: Final Speci men Sourc e: Urine Speci men Quali ty: Adequ ate Resul t: No Growt h Not Available [facility] [address] [place], [address], 05/19/2024 14:51:36 05/06/19 25 05/06/2024 urina lysis , dipst ick Leukocytes Negati ve Not Available [address], [address], 05/06/2024 10:36:22 05/06/19 25 05/06/2024 urina lysis , dipst ick Nitrite negati ve Not Available [address], [address], 05/06/2024 10:36:22 05/06/19 25 05/06/2024 urina lysis , dipst ick Urobilinogen .2 Not Available [address], [address], 05/06/2024 10:36:22 05/06/19 25 05/06/2024 urina lysis , dipst ick Protein Trace Not Available [address], [address], 05/06/2024 10:36:22 05/06/19 25 05/06/2024 urina lysis , dipst ick pH 6.5 Not Available [address], [address], 05/06/2024 10:36:22 05/06/19 25 05/06/2024 urina lysis , dipst ick Blood Non-He molyze d: Trace Not Available [address], [place], [address], 05/06/2024 10:36:22 05/06/19 25 05/06/2024 urina lysis , dipst ick Specific [place] 1.020 Not Available [address], [place], [address], 05/06/2024 10:36:22 05/06/19 25 05/06/2024 urina lysis , dipst ick Ketone Negati ve Not Available [address], [place], [address], 05/06/2024 10:36:22 05/06/19 25 05/06/2024 urina lysis , dipst ick Bilirubin Negati ve Not Available [address], [place], [address], 05/06/2024 10:36:22 05/06/19 25 05/06/2024 urina lysis , dipst ick Glucose Negati ve Not Available [address], [place], [address], 05/06/2024 10:36:22 05/06/19 25 05/06/2024 urina lysis , dipst ick Appearance Slight ly Cloudy Not Available [address], [place], [address], 05/06/2024 10:36:22 05/06/19 25 05/06/2024 urina lysis , dipst ick Color Yellow Not Available [address], [place], [address], 05/06/2024 10:36:22 05/06/19 25 05/06/2024 pregn alma test, urine HCG negati ve Not Available [facility] [address] [place], [address], 05/06/2024 10:36:38 11/19/19 25 11/19/2024 STD BLOOD SCREE ABIMAEL ([facility] ) hep BS Ag Non-Re active non-re active normal Not Available [address], [address], 11/19/2024 13:33:47 11/19/19 25 11/19/2024 STD BLOOD SCREE ABIMAEL ([facility] ) hep C Ab Non-Re active non-re active normal Not Available [address], [address], 11/19/2024 13:33:47 11/19/19 25 11/19/2024 STD BLOOD SCREE ABIMAEL ([facility] ) HIV 1/2 Ag/Ab Non-Re active non-re active normal Not Available [address], [address], 11/19/2024 13:33:47 11/19/19 25 11/19/2024 STD BLOOD SCREE ABIMAEL ([facility] ) syphilis Ab Non-Re active non-re active normal Not Available [address], [address], 11/19/2024 13:33:47 11/19/19 25 11/20/2024 VAGIN ITIS PLUS STD PANEL bacterial vaginosis BV POS negati ve abnormal Not Available [address], [address], 11/20/2024 13:31:04 11/19/19 25 11/20/2024 VAGIN ITIS PLUS STD PANEL mary species C. spp neg negati ve normal Not Available [address], [address], 11/20/2024 13:31:04 11/19/19 25 11/20/2024 VAGIN ITIS PLUS STD PANEL mary glabrata C. gla neg negati ve normal Not Available [address], [address], 11/20/2024 13:31:04 11/19/19 25 11/20/2024 VAGIN ITIS PLUS STD PANEL trichomonas vaginalis CV/TV TRICH neg negati ve normal Not Available [address], [address], 11/20/2024 13:31:04 11/19/19 25 11/20/2024 VAGIN ITIS PLUS STD PANEL chlamydia trachomatis CT neg negati ve normal This repor t is inten ded for us in clini jayant monit oring and manag ement of patie nts. It is not inten ded for use in medic al-le gal appli catio n. Not Available [address], [address], 11/20/2024 13:31:04 11/19/1911/20/2024 VAGIN ITIS PLUS STD PANEL neisseria gonorrhoeae GC neg negati ve normal This repor t is inten ded for us in clini jayant monit oring and manag ement of patie nts. It is not inten ded for use in medic al-le gal appli catio n. Not Available [address], [address], 11/20/2024 13:31:04 12/24/19 25 12/24/[address]/GC /TRIC H chlamydia trachomatis CT neg negati ve normal This repor t is inten ded for use in clini jayant monit oring and manag ement of patie nts. It is not inten ded for use in medic al-le gal appli catio n. Not Available [address], [address], 12/24/2024 16:11:17 12/24/19 25 12/24/[address]/GC /TRIC H neisseria gonorrhoeae GC neg negati ve normal This repor t is inten ded for use in clini jayant monit oring and manag ement of patie nts. It is not inten ded for use in medic al-le gal appli catio n. Not Available [address], [address], 12/24/2024 16:11:17 12/24/19 25 12/24/[address]/GC /TRIC H trichomonas vaginalis TRICH neg negati ve normal Not Available [address], [address], 12/24/2024 16:11:17 12/24/1912/24/[address]/GC /TRIC H HPV high risk Negati ve negati ve normal The HPV High Risk assay is inten ded for use as co-te sting with cytol ogy and not as a subst itute for regul ar cervi jayant cytol ogy scree abimael. This assay is not inten ded for use as a scree abimael devic e for women under age 30 with alessandra l cervi jayant cytol ogy. Not Available [address], [address], 12/24/2024 16:11:17 12/24/1912/29/2024 THINP REP AUTOM ATED PAP clinical information: normal None given Not Available [employer] [facility] [address] [place], [address], 12/29/2024 11:43:16 12/24/1912/29/2024 THINP REP AUTOM ATED PAP LMP: normal NONE GIVEN Not Available [facility] [address] [place], [address], 12/29/2024 11:43:16 12/24/19 25 12/29/2024 THINP REP AUTOM ATED PAP prev. Pap: normal NONE GIVEN Not Available [address] [address] [place], [address], 12/29/2024 11:43:16 12/24/1912/29/2024 THINP REP AUTOM ATED PAP prev. BX: normal NONE GIVEN Not Available [address] [address] [place], [address], 12/29/2024 11:43:16 12/24/1912/29/2024 THINP REP AUTOM ATED PAP source: normal Cervi x Not Available [address] [address] [place], [address], 12/29/2024 11:43:16 12/24/1912/29/2024 THINP REP AUTOM ATED PAP statement of adequacy: normal Satis facto ry for evalu ation . Endoc ervic al/tr ansfo rmati on zone compo nent prese nt. Age and/o r menst rual statu s not provi ded Not Available [address] [address] [place], [address], 12/29/2024 11:43:16 12/24/1912/29/2024 THINP REP AUTOM ATED PAP interpretati on/result: normal Cytol ogy Resul ts: Negat edi for intra epith elial lesio n or malig paige . Not Available [address] [address] [place], [address], 12/29/2024 11:43:16 12/24/1912/29/2024 THINP REP AUTOM ATED PAP comment: normal This Pap test has been evalu ated with the ThinP rep(R ) Imagi ng Syste m. Not Available [address] [address] [place], [address], 12/29/2024 11:43:16 12/24/1912/29/2024 THINP REP AUTOM ATED PAP cytotechnolo gist: normal LMT, CT( CP) CT Scree abimael Locat ion: [facility] , [address] [place] [address] CLIA: [id number] Slide prepa ratio n perfo rmed at: [facility], [address] [place], [address] CLIA: [id number] Not Available [facility] [address] [place], [address], 12/29/2024 11:43:16 12/24/1912/29/2024 THINP REP AUTOM ATED PAP comment EXPLA NATOR Y NOTE: The Pap is a scree abimael test for cervi jayant cance r. It is not a diagn ostic test and is subje ct to false negat edi and false posit edi resul ts. It is most relia ble when a satis facto ry sampl e, regul kathia obtai ariel, is submi tted with relev ant clini jayant findi ngs and histo ry, and when the Pap resul t is evalu ated along with histo arnold and curre nt clini jayant infor matio n. Not Available [employer] [facility] [address] [address], [place], [address], 12/29/2024 11:43:16 12/24/19 25 12/23/2024 pregn alma test, urine HCG negati ve Not Available [facility] [address] [place], [address], 12/23/2024 13:41:46 05/07/19 25 05/06/2024 US, trans vagin al No observ ation record ed. [email or web address] Sadie [address], [place], [address], 05/07/2024 18:44:21 Result Notes None recorded. Problems Name Problem SNOMED Code Status Onset Date Resolution Date Notes Provider Name and Address Organization Details Recorded Time Uses depot contrace ption 762597403 Completed 201305/14/2013 Initiati on of Depo Provera contrace ption; Location : None Severity : Moderate Progress : Stable Added By: Katelynn Leija Add to Current Problems : NO ProblemS tatus: Resolve Noris Lozanoe null, [place] [facility] 4 10:24:[address] Concept Completed 201305/14/2013 Screenin g for genital Chlamydi a infectio n; Location : None Progress : Stable Added By: Parisa Bautista Add to Current Problems : NO ProblemS tatus: Resolve Not Available [facility] 2 22:10:01 Uses depot contrace ption [id number] Completed 201309/19/2023 Noris Blakee null, [place] [facility] 4 10:24:33 Dysuria 26132528 Completed 201408/03/2014 Burning with urinatio n; Location : None Progress : Stable Added By: Jennifer Carrizales Add to Current Problems : NO ProblemS tatus: Resolve Ilana Britsch null, [place] [facility] 4 10:15:34 Dysuria 60080191 Completed 201409/19/2023 Ilana Britsch null, [place] [facility] 4 10:15:34 Clinical finding Completed 201409/19/2023 Encounte r for surveill ance of injectab le contrace ptive; Progress : Stable Added By: Treasure Del Rosario Add to Current Problems : YES ProblemS tatus: Current Ilana Britsch null, [place] [facility] 4 10:14:44 Injectio n given [id number] Completed 201409/19/2023 Follow-u p visit for Depo Provera injectio n; Location : None Severity : Moderate Progress : Stable Added By: Kelsie So Add to Current Problems : YES ProblemS tatus: Current Follow-u p visit for Depo Provera injectio n; Location : None Severity : Moderate Progress : Stable Added By: Sherice Delgadillo Add to Current Problems : YES ProblemS tatus: Resolve; Start Date : 11/17/19 14 Noris Caisse null, [place] [facility] 4 10:24:21 Family history of malignan t neoplasm of breast in first degree relative [id number] Active 2015 Family history of breast cancer; Location : None Progress : Stable Added By: Rosalia Restrepo Add to Current Problems : YES ProblemS tatus: Current Not Available [facility] 2 22:10:32 Herpes simplex 77012147 Completed 201509/02/2015 Herpes simplex, without complica tion; Location : None Progress : Stable Added By: Rosalia Restrepo Add to Current Problems : YES ProblemS tatus: Resolve Herpesvi ral infectio n, unspecif ied; Progress : Stable Added By: Rosalia Restrepo Add to Current Problems : NO ProblemS tatus: Resolve Ilanacarolina Lomeli null, [employer] [facility] IV 4 10:15:41 Uses contrace ption [id number] Completed 201509/02/2015 Contrace ptive maintena nce; Location : None Severity : Moderate Progress : Stable Added By: Rosalia Restrepo Add to Current Problems : YES ProblemS tatus: Resolve Contrace ptive maintena nce; Severity : Moderate Progress : Stable Added By: Bonnie Gallegos Add to Current Problems : NO ProblemS tatus: Resolve; Start Date : 05/19/19 14 Ilana Lomeli null, [employer] IV 4 10:11:16 Family history of breast cancer [id number] Completed 201505/23/2018 Family history of breast cancer; Progress : Stable Added By: Rosalia Restrepo Add to Current Problems : NO ProblemS tatus: Resolve Family history of malignan t neoplasm of breast; Progress : Stable Added By: Rosalia Restrepo Add to Current Problems : YES ProblemS tatus: Current Ilanabaljinder Lomeli null, [facility] IV 4 10:15:28 Family planning surveill ance Completed 201509/02/2015 Contrace ptive maintena nce; Location : None Progress : Stable Added By: Rosalia Restrepo Add to Current Problems : YES ProblemS tatus: Resolve Follow-u p visit for Depo Provera injectio n; Location : None Progress : Stable Added By: Kelsie So Add to Current Problems : YES ProblemS tatus: Current; Start Date : 10/26/19 15 Contr aceptive maintena nce; Location : None Progress : Stable Added By: Bonnie Gallegos Add to Current Problems : NO ProblemS tatus: Resolve; Start Date : 07/23/19 15 Follo w-up visit for Depo Provera injectio n; Location : None Progress : Stable Added By: Sherice Delgadillo Add to Current Problems : YES ProblemS tatus: Resolve; Start Date : 11/17/19 14 Follo w-up visit for Depo Provera injectio n; Location : None Progress : Stable Added By: Peggy Martinez Add to Current Problems : NO ProblemS tatus: Resolve; Start Date : 08/11/19 14 Contr aceptive maintena nce; Location : None Progress : Stable Added By: Alvina Orantes Add to Current Problems : NO ProblemS tatus: Resolve; Start Date : 05/19/19 14 Follo w-up visit for Depo Provera injectio n; Location : None Progress : Stable Added By: Perez Rees Add to Current Problems : NO ProblemS tatus: Resolve; Start Date : 04/29/19 14 Ilana Britsch null, [place] [facility] IV 4 10:15:26 Uses contrace ption [id number] Completed 201509/19/2023 Ilana Britsch null, [place] [facility] IV 4 10:11:16 Family planning surveill ance Completed 201509/19/2023 Ilana Britsch null, [place] [facility] 4 10:15:26 Herpes simplex 74202684 Completed 201509/19/2023 Ilana Britsch null, [place] [facility] 4 10:15:41 Family history of breast cancer 833548076 Completed 201509/19/2023 Ilana Britsch null, [place] [facility] IV 4 10:15:28 Syphilis test finding 813163362 Completed 201509/19/2023 Encounte r for screenin g for infectio ns with a predomin antly sexual mode of transmis franklin; Severity : Moderate Progress : Stable Added By: Joyce Hardy Add to Current Problems : YES ProblemS tatus: Current Ilana Britsch null, [place] [facility] 4 10:14:48 Venereal disease screenin g Completed 201507/08/2016 Screenin g for STDs; Location : None Progress : Stable Added By: Katelynn Leija Add to Current Problems : NO ProblemS tatus: Resolve; Start Date : 08/29/19 14 Scree abimael for STDs; Progress : Stable Added By: Stella Liao Add to Current Problems : NO ProblemS tatus: Resolve; Start Date : 08/29/19 14 Scree abimael for STDs; Location : None Progress : Stable Added By: Brittney Candelaria Add to Current Problems : YES ProblemS tatus: Resolve Ilana Britsch null, [place] [facility] 4 10:11:33 Venereal disease screenin g Completed 201509/19/2023 Ilana Britsch null, [place] [facility] 4 10:11:33 Family planning educatio n done [id number] Completed 201608/16/2017 Family planning advice; Location : None Severity : Moderate Progress : Stable Added By: Petra Mcdaniel Add to Current Problems : YES ProblemS tatus: Resolve Ilana Britsch null[place] [facility] 4 10:11:28 Natural contrace ption educatio n Completed 201608/16/2017 Family planning advice; Location : None Progress : Stable Added By: Petra Mcdaniel Add to Current Problems : YES ProblemS tatus: Resolve Procreat edi counseli ng and advice using natural family planning ; Progress : Stable Added By: Petra Mcdaniel Add to Current Problems : NO ProblemS tatus: Resolve Ilana Britsch null[place] [facility] 4 10:15:36 Family planning educatio n done [id number] Completed 201609/19/2023 Ilana Britsch null, [place] [facility] 4 10:11:28 Natural contrace ption educatio n Completed 201609/19/2023 Ilana Britsch null, [place] [facility] 4 10:15:36 Sampling of vagina for Papanico laou smear Completed 201809/19/2023 Encounte r for gynecolo gical examinat ion (general ) (routine ) without abnormal findings ; Progress : Stable Added By: Bethany Foster Add to Current Problems : YES ProblemS tatus: Current Ilana Britsch null, [place] [facility] 4 10:15:31 Clinical finding Completed 201909/19/2023 Encounte r for initial prescrip tion of injectab le contrace ptive; Progress : Stable Added By: Jennifer Bill i Add to Current Problems : YES ProblemS tatus: Current Ilana Britsch null, [place] [facility] 4 10:14:42 Pregnanc y test negative 486683395 Completed 201909/19/2023 Encounte r for pregnanc y test, result negative ; Progress : Stable Added By: Cathy Red Add to Current Problems : YES ProblemS tatus: Current Ilana Nichellesch null, [place] [facility] 4 10:15:45 Screenin g for malignan t neoplasm of cervix Completed 201909/19/2023 Encounte r for screenin g for malignan t neoplasm of cervix; Progress : Stable Added By: Cathy Red Add to Current Problems : YES ProblemS tatus: Current Ilana Nichellesch null, [place] [facility] 4 10:11:37 Acute vaginiti s 58548236 Completed 201909/19/2023 Acute vaginiti s; Progress : Stable Added By: Joyce Hardy Add to Current Problems : YES ProblemS tatus: Current Noris Holloway null, [place] [facility] 4 10:24:09 Menopaus e present 527502668 Completed 202009/19/2023 Menopaus al and female climacte [place] states; Progress : Stable Added By: Bethany Foster Add to Current Problems : YES ProblemS tatus: Current Noris Holloway null, [facility] IV 4 10:24:27 Finding of lower limb Completed 202009/19/2023 Localize d swelling , mass and lump, right lower limb; Progress : Stable Added By: Joyce Hardy Add to Current Problems : YES ProblemS tatus: Current Ilana Lomeli null, [facility] - [facility] IV 4 10:14:37 Notes:Screening for genital Chlamydia infection (V73.88) ; OnsetDate: 04/29/2013; ResolvedDate: 05/14/2013; Location: None Severity: Moderate Progress: Stable Added By: Parisa Garduno Add to Current Problems: NO ProblemStatus: Resolve Initiation of Depo Provera contraception (V25.02) ; OnsetDate: 04/29/2013; ResolvedDate: 05/14/2013; Progress: Stable Added By: Katelynn Hammond Add to Current Problems: NO ProblemStatus: Resolve (V22.1) ; OnsetDate: 04/13/2013; ResolvedDate: 04/28/2013; Progress: Stable Added By: Peggy Martinez Add to Current Problems: NO ProblemStatus: Resolve Problem Notes None recorded. Procedures Surgical History Date Name Laterality Status Provider Name and Address Organization Details Recorded Time 12/24/19 25 Depo Provera Injection completed Katrina Newell [place] - [facility] 12/23/2024 13:43:43 11/24/19 23 Date of Last Pap Smear completed SHARDA MURPHY, [facility] [address] [facility], [place], [address], [facility] 11/23/2022 10:47:28 11/10/19 23 Depo Provera Injection completed Cathy Red [place] [facility] 11/09/2022 10:17:39 08/22/19 23 Depo Provera Injection completed Cathy Red [place] [facility] 08/21/2022 17:39:21 06/06/19 23 Depo Provera Injection completed Cathy Red [place] [facility] 06/05/2022 17:01:57 03/15/19 23 Depo Provera Injection completed Cathy Red [facility] [employer] [facility] 03/15/2022 10:21:18 12/21/19 22 Depo Provera Injection completed Cathy Red [facility] [employer] [facility] 12/20/2021 15:21:50 section completed [facility] [employer] [facility] 10/17/2021 21:43:55 dilation and curettage completed [facility] [employer] [facility] 10/17/2021 21:44:06 C Section completed Mimi Espinoza [facility] [employer] 12/17/2023 10:13:29 extraction of wisdom tooth completed Amanda Ambrose [facility] [employer] [facility] 05/06/2024 10:03:32 Imaging Results None recorded. Procedure Notes None recorded. Medical Equipment None Reported. Allergies No known drug allergies Medications Name Sig Start Date Stop Date Status Note LastModified by Organization Details LastModified Time methocarb deniz 500 mg tablet TAKE 1 TABLET BY MOUTH 4 TIMES DAILY NEEDED FOR MUSCLE SPASM 05/06 completed Not Available Not Available Not Available doxycycli ne hyclate 100 mg capsule TAKE 1 CAPSULE BY MOUTH TWICE DAILY 11/18 completed Not Available Not Available Not Available Lidocaine Viscous 2 % mucosal solution Apply thin layer QID to affected area as directed 07/03 completed Not Available Not Available Not Available fluconazo le 150 mg tablet TAKE 1 TABLET BY MOUTH 1 TIME 09/18 completed Not Available Not Available Not Available valacyclo vir 1 gram tablet TAKE 1 TABLET BY MOUTH ONCE DAILY NEEDED FOR BREAKOUT 11/18 completed Not Available Not Available Not Available metronida zole 500 mg tablet Take 1 tablet every 12 hours by oral route for 7 days. 12/09 completed Not Available Not Available Not Available phentermi ne 37.5 mg tablet Take 0.5 tablets twice a day by oral route. 2024 active Not Available Not Available Not Avai lable acyclovir 400 mg tablet 1 PO Daily 05/29 completed Not Available Not Available Not Available valacyclo vir 500 mg tablet TAKE 1 TABLET BY MOUTH EVERY DAY active Not Available Not Available No t Available terbinafi ne HCl 250 mg tablet TAKE 1 TABLET BY MOUTH EVERY DAY 10/18 completed Not Available Not Available Not Available Zofran 8 mg tablet 1/2 tab po q 6 hrs PRN 04/29 completed Not Available Not Available Not Available Depo-Prov era 150 mg/mL intramusc ular suspensio n inject 1 millilit er (150 mg) by intramus cular route every 3 months 09/18 completed Not Available Not Available Not Available baclofen 10 mg tablet TAKE 1 TABLET BY MOUTH THREE TIMES DAILY NEEDED FOR MUSCLE PAIN 09/18 completed Not Available Not Available Not Available benzonata te 100 mg capsule TAKE 1 CAPSULE BY MOUTH TWICE DAILY NEEDED FOR COUGH 12/23 completed Not Available Not Available Not Available cephalexi n 500 mg capsule TAKE 1 CAPSULE BY MOUTH TWICE DAILY FOR 7 DAYS 11/18 completed Not Available Not Available Not Available Cipro 500 mg tablet Take 1 tablet(s ) by mouth q12h 07/03 completed Not Available Not Available Not Available diclofena c sodium 75 mg tablet,de layed release TAKE 1 TABLET BY MOUTH TWICE DAILY 09/18 completed Not Available Not Available Not Available ibuprofen 600 mg tablet TAKE 1 TABLET BY MOUTH THREE TIMES DAILY NEEDED FOR FEVER OR PAIN 09/18 completed Not Available Not Available Not Available Pepcid 20 mg tablet Take 1 tablet(s ) by mouth bid 07/03 completed Not Available Not Available Not Available fluoxetin e 20 mg capsule TAKE 1 CAPSULE BY MOUTH EVERY DAY IN THE MORNING 09/18 completed Not Available Not Available Not Available fluticaso ne propionat e 50 mcg/actua tion nasal spray,jerrica pension USE 1 SPRAY(S) IN EACH NOSTRIL ONCE DAILY 12/23 completed Not Available Not Available Not Available sertralin e 50 mg tablet TAKE 1 TABLET BY MOUTH ONCE DAILY 05/06 completed Not Available Not Available Not Available loratadin e 10 mg tablet TAKE 1 TABLET BY MOUTH ONCE DAILY 12/23 completed Not Available Not Available Not Available hydroxyzi ne pamoate 25 mg capsule TAKE 1 CAPSULE BY MOUTH UP TO EVERY 8 HOURS NEEDED FOR ANXIETY 09/18 completed Not Available Not Available Not Available azithromy richard 500 mg tablet Take 2 tablets by mouth now active Not Available Not Available No t Available medroxypr ogesteron e 150 mg/mL intramusc ular syringe INJECT 1 MILLILIT ER INTRAMUS CULARLY EVERY 3 MONTHS active Not Available Not Available No t Available acyclovir 12/23 completed Not Available Not Available Not Available azithromy richard Take 2 tablets by mouth now 04/14 completed Azithrom ycin 500mg Tablet RxNorm: 838110 Allow Substitu tion: True Refill Denied: No Not Available Not Available Not Available Pepcid 10/18 completed Not Available Not Available Not Available Depo-Prov era 06/05 completed Depo-Pro vera RxNorm: 8308351 Allow Substitu tion: True Refill Denied: No Not Available Not Available Not Available ethanolam ine (bulk) 12/23 completed ethanola mine (bulk) RxNorm: 43461 Allow Substitu tion: True Refill Denied: No Refill DateOccu rred: 05/24/19 Edited by: Gertrudis Marcelino ) on 12/24/19 Stopped by: Gertrudis Marcelino ) on 12/24/19 Not Available Not Available Not Available Gardasil 9 (PF) 0.5 mL intramusc ular suspensio n 0.5ml now, at 1 month, and a 6 months for a total of 3 doses. 12/23 completed Not Available Not Available Not Available Vitals Date Recorded Body height Body mass index (BMI) Body weight Systolic And Diastolic Provider Name and Address Organization Details Last Updated DateTime 05/06/2024 170.18 cm 48.3 kg/m2 752693.89 g 128/90 mm[Hg] Amanda Ambrose [facility] [employer] [facility] 05/06/2024 10:06:19 Date Recorded Body height Body mass index (BMI) Body weight Body temperature Systolic And Diastolic Provider Name and Address Organization Details Last Updated DateTime 11/18/2024 170.18 cm 48.3 kg/m2 050408. 17 g 97.4 [degF] 114/82 mm[Hg] Fabricio Ortiz [facility] [employer] IV 13:10:51 Date Recorded Body height Provider Name an d Address Organization Details Last Updated DateTime 12/17/2023 170.18 cm Mimi Espinoza [facility] 12/17/2023 10:18:54 Date Recorded Body height Provider Name an d Address Organization Details Last Updated DateTime 12/23/2024 170.18 cm Fabricio Ortiz [facility] 12/23/2024 10:48:12 Social History Question Answer Notes LastModified by Organizat ion Details LastModified Time Tobacco Smoking Status Never Smoker Yoselin Valentine null, [facility] 10/18/2021 11:10:30 If You Are , What Was Your Level Of Alcohol Consumption Prior To ? None [email or web address] Information not available 12/17/2023 How Many Years Have You Consumed Alcohol? 30 [email or web address] Information not available 12/17/2023 Are You Blind Or Do You Have Difficulty Seeing? No Information not available 09/19/2023 Are You Deaf Or Do You Have Serious Difficulty Hearing? No Information not available 09/19/2023 What Type Of Diet Are You Following? REGULAR Information not available 10/18/2021 How Many Children Do You Have? 2 Information not available 09/19/2023 Are There Any Occupational Health Risks Where You Work? Back Pain [email or web address] Information not available 12/17/2023 What Is Your Relationship Status? Single Information not available 10/18/2021 Are You Sexually Active? Yes Information not available 10/18/2021 What Types Of Sporting Activities Do You Participate In? Swimming Water Aerobics , Walking [email or web address] Information not available 12/17/2023 Sex: Unknown Functional Status Question Answer Note LastModified by Organizat ion Details LastModified Time Do you use any illicit or recreational drugs? No Information not available 09/19/2023 Do you or have you ever used any other forms of tobacco or nicotine? No [email or web address] Information not available 05/06/2024 What is your level of alcohol consumption? Occasional Information not available 10/18/2021 Are you currently employed? Yes [email or web address] Information not available 12/17/2023 Do you or have you ever used e-cigarettes or vape? Never used electronic cigarettes Information not available 10/18/2021 What is your exercise level? Moderate [email or web address] Information not available 12/17/2023 Mental Status None recorded. Family History Relationship Description Onset Age of this Age Resolved Age Notes LastModified by Organization Details LastModified Time Father No current problems or disability Not available 10/09 11:10:30 Father Malignant neoplasm of lung Not available 10/18 11:10:30 Mother No current problems or disability Not available 10/09 11:10:30 Unspecified Relation Malignant neoplasm of cervix uteri Not available 11:10:30 Unspecified Relation Malignant neoplasm of breast Not available 10/18 11:10:30 Unspecified Relation Hypertensive disorder Not available 2023 10:30:18 Paternal Grandmother Malignant neoplasm of cervix uteri Not available 11:10:30 Medical History Condition Response Other Cancer N High Blood Pressure N Colon Cancer N Cytomegalovirus N Hyperthyroidism N MRSA N Blood Transfusion N Herpes (HSV) N Breast Cancer N Lung Cancer N Depression N Hypothyroidism N Incontinence N Panic Attacks N Neurological Disorder N Deep Vein Thrombosis N Anxiety Disorder N Autoimmune disease N Arthritis N Shingles N Tuberculosis/Positive PPD N Polycystic Ovarian Syndrome N Cervical Cancer N Chlamydia N Hematuria N Stroke N Varicosities N Seasonal allergies N Crohn's Disease N Alzheimer's/Dementia N COPD/Emphysema N Endometriosis N HPV/Genital Warts N IBS (Irritable Bowel Syndrome) N History of Abnormal Pap N High Cholesterol N Liver Disease N Kidney Infection N Fibromyalgia N Ulcer N Kidney Disease N HIV N Gallbladder disease N Von Willebrand disease N Sickle Cell Disease/Trait N ADD/ADHD N Eating Disorder N Diabetes Mellitus (non-insulin dependent ) N Anemia N Ovarian Problems N Multiple Sclerosis N Gonorrhea N Frequent Urinary Tract infections N Osteopenia N Headaches/migraines N GERD (reflux) Y Ovarian Cancer N Diabetes (insulin dependent) N Seizures/Epilepsy N Fibroids N Asthma N Heart Attack N Endometrial Cancer N Lupus N Rubella N Blood Clotting Disorder N Bipolar Disorder N Diabetes Mellitus (during ) N Ulcerative Colitis N Hepatitis N Heart Disease N Pulmonary Embolism N RPR N Chicken Pox Y Osteoporosis N Gynecological History Statement/Question Response Flow Heavy Date of last HPV 11/23/2022 Date of LMP 11/10/2024 HPV Vaccine Y Duration of Flow (days) 7 Most Recent Mammogram Current Control Method None Age at Menarche 10 Date of Last Colonoscopy Most Recent Bone Density Frequency of Cycle (Q days) 7 Date of Last Pap Smear 11/23/2022 Obstetrics History GPAL:G 2 P 1 0 1 2 Type Value Multiple Births 1 Full Term 1 Spontaneous 1 Living 2 Total 2 Past Encounters Encounter ID Performer Location Encounter Start Date Encounter Closed Date Diagnosis/Indication Diagnosis SNOMED-CT Code Diagnosis ICD10 Code Diagnosis IMO Codes Diagnosis Note [id number] DIPIKA WASHINGTON MD [address] [place] [address] 10/18/2021 10:59:05 10/18/2021 14:23:45 Gynecologic examination 15754941 Z01.419 Venereal d isease screening 945236792 Z11.3 Surveillan ce of contraception 519159860 Z30.40 Contracept ion care education 509429216 Z30.09 Genital he rpes simplex 33395560 A60.9 Morbid obesity 424050194 E66.01 [id number] Jennifer Lucero, [address] [place] [address] 12/20/2021 12:07:07 12/20/2021 14:57:20 Initiation of depot contraception done 5782639185 68561 Z30.013 Genital he rpes simplex 78145238 A60.9 [id number] [facility] [address] [place] [address] 12/20/2021 14:36:36 12/20/2021 15:54:46 Initiation of depot contraception done 5164179134 53003 Z30.487 [id number] Linh bentley, [facility] [address] [place] [address] 03/15/2022 09:45:48 03/21/2022 15:18:02 Surveillance of depot contraception done 8257407736 9104 Z30.42 [id number] SAJI TRISTANShahramKIRK, NP-[facility] h [address] [place] [address] 06/05/2022 12:52:51 06/06/2022 12:18:32 Surveillance of depot contraception done 8458373648 9104 Z30.42 [id number] DIPIKA WASHINGTON MD [facility] h [address] [place] [address] 08/21/2022 16:47:08 08/22/2022 03:51:08 Surveillance of depot contraception done [id number] [facility] Z30.42 [id number] [facility] [address] [place] [address] 11/09/2022 09:50:26 11/13/2022 12:01:12 Surveillance of depot contraception done 6752903852 91 Z30.42 [id number] SHARDA MURPHY [facility] [address] [place] [address] 11/23/2022 09:55:51 11/23/2022 18:11:46 Gynecologic examination 26617175 Z01.419 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 The patient denies any changes in her medical history. The patient denies any changes in her family medical history. Annual Exam:She reports having no significan t TABLET COATER symptoms.H er menses are irregular due to depo shot. Reports they are not heavy or painful. Denies spotting in between.Pt is currently using Depo for contracept ion. She is satisfied with her current method, refills sent.Discu ssed weight gain associated depo shot. Pap History: 05/2019 WNLShe is due for a pap smear. Breast History:Imtiaz frances denies breast symptoms. Education on Breast Self Awareness given.She is not due for mammogram Family History:Ne gative for Breast Cancer, Cervical Cancer, Colon Cancer, Endometria l Cancer and Ovarian Cancer. MYRisk test offered and declined. Social History:Imtiaz frances is currently sexually active with a male partner. She denies complaints about sexual activity. Patient reports feeling safe at home from emotional, physical, and verbal abuse.She does desire STD testing. Exercise: Occasional She wears her seat belt. She does not text and drive.The patient denies smoking and recreation al drugs. She denies drinking alcohol. Patient is regularly seen by PCP for preventati ve care: YesCholest brynn screening: Managed by PCPTalked with PCP about weight management as well. Screening for malignant neoplasm of cervix 153495880 Z12.4 ASCCP guidelines reviewed with pt. Pap collected and sent. Further POC pending lab result review. Pt states understand ing of POC. Surveillan ce of contraception 953781099 Z30.40 Pt educated on risks Vs benefits of use, reviewed ACHES symptoms and blackbox warning. Importance of following dosing schedule as directed reinforced to pt, and on use of condoms or abstinence if dosing schedule is interrupte d. Pt advised no appt necessary to receive injection. Pt to bring Rx with her from pharmacy for administra tion. Pt encouraged to consider Ca+ and Vit D supplement ation with use. Refills sent. Plan to F/U PRN or at next [employer]. Depression screening 171 445273 Z13.31 PHQ9: 6. Due to current weight. Pt educated on normal scoring, and discussed depression precaution s and when to notify HCP/go to ER. Venereal d isease screening 656056117 Z11.3 Pt educated on importance of condom use for protection against STD's. Samples collected and sent. Further POC pending lab result review. Pt states understand ing of POC. Herpes simplex 23671417 B00.9 Last outbreak 2 weeks ago. [id number] FLACA COFFMAN NP [facility] [address] [place] [address] 09/19/2023 10:07:26 09/19/2023 11:08:32 Venereal disease screening 965752311 Z11.3 Additional diagnosis detail: Routine screening for STI (sexually transmitte d infection) Missed period 59689709 N 92.6 Vaginal dryness 78417230 N89.8 reports vaginal dryness and discomfort . Patient uses at vaginal douching with vinegar.- vaginitis/ STI swab sent, will treat per culture.- Reviewed vulvar hygiene: avoid tight or moist clothing, soaps, Vagisil and other wipes, cotton underwear only, and sleep without unscented detergent- discussed use of douching and role in vaginal dryness and other associated symptoms- Advised to figure out triggering factors (wet gym cloths, lotion, sensitivit y to partner, sensitive latex).- Discussed Silicon-ba sed menstrual discs or cups for menses.- Discussed OTC Vaginal boric acid role in vaginal infections .- Followup to be scheduled after results for further management .-Discusse d vaginal dryness and trying natural lubricants , increasing foreplay to help [id number] DENNIS ZAVALA[facility] [address] [place] [address] 12/17/2023 10:08:09 12/17/2023 12:12:54 Gynecologic examination 58651700 Z01.419 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 The patient denies any changes in her medical history. The patient denies any changes in her family medical history. Annual Exam:Pt is currently using nothing for contracept ion. She is satisfied with her current method. Pt's spouse has a vasectomy. Pt was on Depo last year, periods have not fully returned to normal.Dis cussed weight loss and contracept ion. Pap History:Imtiaz frances is not due for a pap smear; 11/2022 HPV-, NILM. Breast History:Imtiaz frances denies breast symptoms. Education on Breast Self Awareness given Patient is regularly seen by PCP for preventati ve care: Yes Screening for malignant neoplasm of cervix [id number] Z12.4 ASCCP guidelines reviewed with patient. Pap Hx: No pap collected today. Pt states understand ing and is amenable to POC. Contracept ion education [id number] Z30.09 Contracept edi counseling : Discussed options including OCPs, NuvaRing, Nexplanon, hormonal and copper IUDs. Discussed risks, efficacy, noncontrac eptive benefits, and side effects of each option, including risk of VTE with hormonal contracept ion and uterine perforatio n, expulsion, infection with IUD. Depression screening 171 830134 Z13.31 See PHQ-9 [id number] Christian Arredondo MD [facility] [address] [place] [address] 05/06/2024 09:36:33 05/08/2024 11:24:24 Menometrorrhagia [id number] N92.1 [id number] Follow-up in 1 month for further management . Body mass index 40+ - severely obese 339212926 Z68.42 [id number] COUNSELING was provided today regarding the following topics: healthy eating habits. Patient education given on weight management ., regular exercise. Patient handout given on Fitness, crossfit exercise emphasized . Instructed to strictly limit food calories to 12 oz/day and processed starches., and Instructed to stop the prescribed medication immediatel y if you experience chest pain or shortness of breath.. RECOMMENDA TIONS given include: a graduated exercise program ( 4-5 days per week ), stress reduction, You should follow the recommenda tions for fluid calories, limit processed starches, and diet caloric intake recommenda tions., and Encouraged at least 6 hours of sleep per night.. stressed importance of weight loss. Download cognitive therapy APPs (CBT Manager Of Drilling, Jones)FOLL OW-UP: Schedule a follow-up visit in 2 month. Dysuria [id number] R30.0 57163 Amenorrhea 26521067 N91. 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 The patient denies any changes in her medical history. The patient denies any changes in her family medical history. Annual Exam:Pt is currently using nothing for contracept ion. She is satisfied with her current method. Pt's spouse has a vasectomy. Pt was on Depo last year, periods have not fully returned to normal. Pap History:Sh juan daniel is not due for a pap smear; 11/2022 HPV-, NILM. Breast History:Sh e denies breast symptoms. Education on Breast Self Awareness given Patient is regularly seen by PCP for preventati ve care: Yes Screening for malignant neoplasm of cervix 481121525 Z12.4 Surveillan ce of contraception 478070924 Z30.40 Depression screening 171 769414 Z13.31 See Intake Screening - PHQ Contracept ion education 194632138 Z30.09 Contracept edi counseling : Discussed options including OCPs, NuvaRing, Nexplanon, hormonal and copper IUDs. Discussed risks, efficacy, noncontrac eptive benefits, and side effects of each option, including risk of VTE with hormonal contracept ion and uterine perforatio n, expulsion, infection with IUD. Herpetic vulvovaginitis 36224736 A60.04 [id number] Initiation of depot contraception done [id number] 52617 Z30.013 8037657086 Body mass index 40+ - severely obese 269647918 Z68.42 [id number] JUNAID MENCHACA CNM [facility] [address] [place] [address] 12/23/2024 13:20:47 12/23/2024 15:08:16 Medroxyprogesterone acetate depot injection given 272534659 Z30.8 [id number] y.o. here for depoprover a injection, no concerns Health Concerns Section Related Observation LastModified by Organization Detai ls LastModified Time None Recorded Concern Status LastModified by Organization Details LastModified Time None Recorded Advance Directives Directive None Recorded Payers Insurance Date Sequence Insurance Name Policy Number Policy Bob Covered Member ID Bob Member ID Guarantor Name 12/30/2024 1 [facility] ON OR AFTER 09/08/20 (MEDICAID REPLACEMENT - HMO) Carol Jacobo [id number] Carol Jacobo 12/30/2024 1 [facility] ON OR AFTER 02/09/2020 (MEDICAID REPLACEMENT - HMO) Carol Jacobo [id number] Carol Jacobo Notes Date Note Type Note Provider Name and Address Organization Details Recorded Time 4 text/html Annual GYNReported by PatientGenitourinary symptomsFor urinary symptoms, patient reportsno hematuriaandno incontinence. For vulva, patient reportsno genital lesion. For vagina, patient reportsnormal vaginal discharge.Breast symptomsFor breast, patient reportsno breast pain,no breast lump, andno nipple discharge.Endocrine symptomsFor sexual complaints, patient reportsno sexual complaints,no pain during intercourse, andnormal libido. For menopausal symptoms, patient reportsno menopausal symptomsandnormal vaginal lubrication.Psychological symptomsFor psychological symptoms, patient reportsno depression,no anxiety, andno pmdd.ROS as noted in the HPI Pt here for aex.Pt's last pap was 11/23/2022t is not requesting STD/STI testing via culture and serum. Hx of gential herpes. Usually happens when she is stressed.Pt also has questions about weight loss.Irregular periods OLINDA ZAVALA [facility], [place], [address], [facility] [employer] IV 12/17/2023 11:06:05 5 text/html ROS as noted in the HPI The patient verbally consented to documentation via virtual scribe for this encounter. Carol is a 33-year-old woman who presents today for having a tampon in vagina. Pt started that its been stuck since Saturday. Pt stated that she has been having side pain since then. She reports taking Aleve for her pain. She states that her menses are irregular for years. She states she was previously on Depo injection, last one being on 01/2023. She states she was on Depo injections since she was 16 years old. Today, her weight is 308.4 lbs with a BMI of 48.3. She states she drinks a lot of fluid calories. She is interested to lose weight and is requesting a medication. She is status post and vaginal delivery for her twins. Christian Arredondo MD [facility], [place], [address], [facility] [employer] IV 05/07/2024 18:26:09 5 text/html Vaginal/Vulvar ProblemReported by PatientROS as noted in the HPI Carol is here to be screened for std's. She c/o a slight vaginal odor, an increase in urinary frequency, constipation and side pain. She states the side pain has been present for a couple of weeks. SAJI GROSSMAN, [facility] [address] [place], [address], [facility] [employer] 11/18/2024 13:17:40 5 text/html Annual GYNReported by PatientGenitourinary symptomsFor menstrual cycle, patient reportsnormal menses. For urinary symptoms, patient reportsno hematuriaandno incontinence. For vulva, patient reportsno genital lesion. For vagina, patient reportsnormal vaginal discharge.Breast symptomsFor breast, patient reportsno breast pain,no breast lump, andno nipple discharge.Endocrine symptomsFor sexual complaints, patient reportsno sexual complaints,no pain during intercourse, andnormal libido. For menopausal symptoms, patient reportsno menopausal symptomsandnormal vaginal lubrication.Psychological symptomsFor psychological symptoms, patient reportsno depression,no anxiety, andno pmdd.ROS as noted in the HPI Carol is here for an annual wwe. Pt LMP was 11/10/24. She would like to get a script for depo today. She had her last pap 11/2022. She would like refills on acyclovir and Her PHQ9 screening score is 12, and ROBBY-7 score is 14. Pt has requested a script for Phentermine. She says she would like to keep seeing Saji. SAJI GROSSMAN, [facility] [address] [facility], [place], [address], [facility] [employer] 12/23/2024 11:20:51 OBGyn Episode Ob Episode Information Episode Created Date Number of Fetuses Patient Bloodtype Patient rh Status Prepregnancy Weight lbs Domestic Partner Domestic Partner Phone Father Name Media Consultant Outside Sales Status 05/26/19 22 2 CLOSED Fetus Data First Name Last Name Admitted to NICU Weight (g) Sex Living Outcome Pediatric Complications Fetus ID Race Codes Race Delivery Type 2267.96 F [id number] 2208.45 5 F [id number] [place] Calculation Initial [place] Date Initial Exam Date Initial Exam Provider Initial Ultrasound Date Last Menstrual Period Date Ultra Sound Weeks Gestation 0 Eighteen To Twenty Week [place] Update Ultra Sound Date Fundal Height At Umbil Quickening Date Ultra Sound Latest Weeks Gestation Final [place] Confirmed By Final [place] Confirmed Date Final [place] Date Ultra Sound Latest Days Gestation 0 0 Menstrual History Last Menstrual Date Menses Monthly On Bcp Conception Prior Menses Frequency Hcg Plus Date Menarche Onset Age Delivery Information Delivery Date Delivery Type Labor Anesthesia Weeks Gestation Incision Type Labor Labor Length Hrs Delivered By Post Complications Tubal Sterilization Discharge Date Comments 1 40 false twin A/ CS twin B for breech Discharge Information Feeding Method Contraceptive Method Maternal HG B and HCT Levels Ob Episode Information Episode Created Date Number of Fetuses Patient Bloodtype Patient rh Status Prepregnancy Weight lbs Domestic Partner Domestic Partner Phone Father Name Media Consultant Outside Sales Status 05/26/19 22 1 CLOSED Fetus Data First Name Last Name Admitted to NICU Weight (g) Sex Living Outcome Pediatric Complications Fetus ID Race Codes Race Delivery Type [id number] [place] Calculation Initial [place] Date Initial Exam Date Initial Exam Provider Initial Ultrasound Date Last Menstrual Period Date Ultra Sound Weeks Gestation 0 Eighteen To Twenty Week [place] Update Ultra Sound Date Fundal Height At Umbil Quickening Date Ultra Sound Latest Weeks Gestation Final [place] Confirmed By Final [place] Confirmed Date Final [place] Date Ultra Sound Latest Days Gestation 0 0 Menstrual History Last Menstrual Date Menses Monthly On Bcp Conception Prior Menses Frequency Hcg Plus Date Menarche Onset Age Delivery Information Delivery Date Delivery Type Labor Anesthesia Weeks Gestation Incision Type Labor Labor Length Hrs Delivered By Post Complications Tubal Sterilization Discharge Date Comments 4 None false Comments : D&C, 3 m GA Discharge Information Feeding Method Contraceptive Method Maternal HG B and HCT Levels
--- OUTSIDE RECORDS SUMMARY | 2025-01-14 16:18 | XMS_ITS | Clinical Summary ---
Author Organization [facility] Address [facility] [place] [address] Care Team Providers Care Before And After School Daycare Worker Name Role Phone Kellie Lind NP Primary Care Provider [phone] Allergies No known active allergies Medications medroxyPROGESTER [...] Cancer Screening with HPV 2020 PHQ-2 (Physician [place]) 03/11/2024 COVID-19 Vaccine ( season) 2024 01/30/2021, 07/05/2020, 06/14/2020 Influenza Adult (#1) 2024 01/14/2022, 05/22/2019, 06/14/2017, Additional history exists HPV Vaccines Completed 05/21/2007, 12/10, 07/25/2006 Hepatitis A Vaccines Completed 05/21/2007, 05/21/2007, 07/25/2006, Additional history exists Hepatitis C Completed 05/22/2019, 03/12, 04/05/2017, Additional [...] with a HCV Nucleic Acid Amplification test ([id number]). 05/22/2019 8:15 AM CDT 05/22/2019 Narrative [facility] - 05/26/2019 4:06 AM CDT Performed at: 02 - [facility] [address] [id number] Pulverizer Operator: Levi Huizar PhD, Phone: [phone] Kellie Lind NP LABORATORY Final Result [facility] [address] [place] [address] [facility] 2 from Last 3 Months or Most Recently Relevant to Health Maintenance Insurance [employer] Care Teams Before And After School Daycare Worker Relationship Specialty Start Date End Date Kellie [place] [address] PCP - General FAMILY PRACTICE 02/06/17
--- OUTSIDE RECORDS SUMMARY | 2025-01-14 16:18 | XMS_ITS | Patient Health Record ---
Author Organization [facility] Address [address] [place] [address] Care Team Providers Care Relief Mate Name Role Phone Chantel Martinez Primary Care Provider Allergies No Known Allergies Reason For Referral No Information Medications Medication SIG (Take, Route, Frequency, Duration) Notes Start Date End Date Status hydrOXYzine Pamoate 25 MG 1 capsule N EEDED for anxiety Orally Up to every 8 hours; Duration: 30 day(s) 02/05/2022 Active Depo-Provera 150 MG/ML 1 mL Intramuscular Active valACYclovir HCl 1 GM 1 tablet Orally Once a day Active Social History Tobacco Use: Social History Observation Description Date Details (start date - stop date) Never Smoker NA - NA Dont use, Tobacco Use/Smoking Question Answer Notes Are you a nonsmoker Problems Problem Type SNOMED Code ICD Code Onset Dates Problem Status W/U Status Risk Notes Problem Generalized anxiety disorder (67587116) Generalized anxiety disorder (F41.1) Active confirmed Plan Of Treatment No Information Insurance Providers Payer Name Payer Address Payer Phone Subscriber Number Group Number Insured Name Patient Relationship to Insured Coverage Start Date Coverage End Date [employer] [facility] Attn Claims Department [address] [place] [address] [phone] [id number] Carol Jacobo Self - patient is the insured 2 [employer] Attn Claims Department [address] [place] [address] [phone] [id number] Carol Jacobo Self - patient is the insured 2 Medical (General) History Surgical History Surgery Date(Month/Year) section 2010 Hospitalization History Reason Date(Month/Year) Childbirth 2010
--- OUTSIDE RECORDS SUMMARY | 2025-01-14 16:18 | XMS_ITS | Encounter Summary ---
Author Organization [facility] Address [address] [place] [address] Phone Care Team Providers Care Parlor Maid Name Role Phone De Artur Galaviz DO Primary Care Provider Harriet Crawford NP Primary Care Provider [phone] Encounter Details Date Type Department Care Team (Late st Contact Info) Description 03/29/[address] 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 Historical Provider LAB PATHOLOGY ORDERABLES Final Result documented in this encounter Visit Diagnoses Not on filedocumented in this encounter Care Teams Parlor Maid Relationship Specialty Start Date End Date Artur Kc DO [address] [place] [address] PCP - General Family Medicine 02/15/17 07/24/22 [place] [address] [place] [address] PCP - General Internal Medicine 07/25/22 documented as of this encounter
--- OUTSIDE RECORDS SUMMARY | 2025-01-14 17:10 | XMS_ITS | Clinical Summary ---
Author Organization [facility] Address [address] [address] Phone Care Team Providers Care Hand Brush Filler Name Role Phone Unavailable Primary Care Provider [...]
--- OUTSIDE RECORDS SUMMARY | 2025-01-14 17:10 | XMS_ITS | Data Portability ---
Author Organization [facility] Kelsey Henderson Address [address] [place] [address] Care Team Providers Care Novelty Maker Name Role Phone JONATHAN, ORVILLE Primary Care Provider Assessment Encounter Date Assessment Date Assessment LastModified by Organization Details LastModified Time 07/03/2021 07/03/2021 covid vaccinated- has card with her Not available 07/03/2021 16:02:22 09/26/2021 09/26/2021 covid vaccinated- has card with her Not available 09/26/2021 11:39:51 06/15/2022 06/15/2022 homestyle direct [phone] Not available 06/15/2022 10:42:42 Plan of Treatment Reminders Order Date Submit Date Provider Last Modified By Organization Details Last Modified Time Details Appointments None recorded. Lab RPR (rapid plasma reagin), serum 2021 [place] [facility], [address] Marjorie [address]ondo, [address], [place], [address], 04:06:51 hepatitis B surface Ab, qualitativ e, serum 2021 [place] [facility], 2022 Marjorie Arredondo, [address], [place], [address], 04:06:50 HIV 1 + 2, meaningful use set 2021 [place] [facility], 2022 Marjorie Arredondo, [address], [place], [address], 2 04:06:51 chlamydia trachomati s + neisseria gonorrhoea e + trichomona s vaginalis DNA panel, MARIELLE+probe, unspecifie d specimen 2021 022 [facility], 2022 Marjorie Arredondo, [address], [place], [address], 2 04:06:50 hepatitis C Ab, signal-to- cutoff, serum or plasma 2021 022 [facility], 2022 Marjorie Arredondo, [address], [place], [address], 2 04:06:49 HIV 1 + 2, meaningful use set 2021 [facility], 2022 Marjorie Arredondo, [address], [place], [address], 2 03:07:38 chlamydia trachomati s + neisseria gonorrhoea e + trichomona s vaginalis DNA panel, MARIELLE+probe, unspecifie d specimen 2021 [facility], 2022 Marjorie Arredondo, [address], [place], [address], 2 03:07:35 hepatitis C Ab, signal-to- cutoff, serum or plasma 2021 022 [facility], 2022 Marjorie Arredondo, [address], [place], [address], 2 03:07:35 RPR (rapid plasma reagin), serum 2021 022 [email or web address] Marjorie [address]redondo, [address], [place], [address], 2 15:56:06 HBsAg (hepatitis B surface Ag), EIA, serum 2021 [place] [facility], 2022 Marjorie [address]redondo, [address], [place], [address], 2 03:07:39 hepatitis B surface Ab, qualitativ e, serum 2021 [place] [facility], 2022 Marjor[address]ondo, [address], [place], [address], 2 03:07:37 HCG, intact + beta subunit, quant, serum or plasma 2021 [place] [facility], 2022 Marjorie Arredondo, [address], [place], [address], 2 03:07:37 HbA1c (hemoglobi n A1c), blood 2021 [place] [facility], 2022 Marjorie Arredondo, [address], [place], [address], 2 03:07:36 lipid panel, serum 2021 [place] [facility], 2022 Marjorie Arredondo, [address], [place], [address], 2 03:07:34 TSH + free T4, serum 2021 [facility], 2022 Marjorie [address]redondo, [address], [place], [address], 2 03:07:33 CMP, serum or plasma 2021 [place] [facility], 2022 Marjorie Arredondo, [address], [place], [address], 2 03:07:33 vitamin D, 25-hydroxy , total, serum 2021 [place] [facility], 2022 Marjorie Arredondo, [address], [place], [address], 2 03:07:38 RPR (rapid plasma reagin), serum 2021 [email or web address], [address], [place], [address], 10:09:25 HIV 1 + 2, meaningful use set 2021 [facility], 2022 Marjorie Arredondo, [address], [place], [address], 16:15:24 chlamydia trachomati s + neisseria gonorrhoea e + trichomona s vaginalis DNA panel, MARIELLE+probe, unspecifie d specimen 2021 [facility], 2022 Marjorie Arredondo, [address], [place], [address], 16:03:45 hepatitis C Ab, signal-to- cutoff, serum [facility] Marjor[address]ondo, [address], [place], [address], 16:03:45 test, urine 2021 [facility] In-Office Order, Internal Use Only DO Not Attach Compendium DO Not Attach Compendium, Do Not Delete/merge, [id number] 16:11:00 HbA1c (hemoglobi n A1c), blood 2021 [email or web address], [address], [place], [address], 16:03:45 lipid panel, serum 2021 [email or web address], [address], [place], [address], 16:03:45 CMP, serum or plasma 2021 [facility], [address], [place], [address], 2 16:03:45 TSH + free T4, serum 2021 [facility], [address], [place], [address], 16:05:15 vitamin D, 25-hydroxy , total, serum 2021 [facility], [address], [place], [address], 16:03:45 CT + NG + TV, DNA, urine/swab 2020 [facility], 2022 Marjorie Arredondo, [address], [place], [address], 03:07:22 HIV 1+2 AB + HIV 1 p24 Ag, qualitativ e immunoassa y, serum 2020 [place] [facility], 2022 Marjorie Arredondo, [address], [place], [address], 09:14:46 RPR (rapid plasma reagin), serum 2020 [facility], 2022 Marjorie Arredondo, [address], [place], [address], 1 09:14:45 hepatitis panel (A+B+C), acute, serum 2020 021 [facility], 2022 Marjorie Arredondo, [address], [place], [address], 1 09:14:43 hsv (1+2) igg Ab, serum 2020 021 [facility], 2022 Marjorie Arredondo, [address], [place], [address], 1 09:14:44 CBC w/ auto diff 2020 021 [place], 2022 Marjorie Arredondo, [facility] [address], [place], [address], 1 09:14:43 Referral auto locator referral 2021 022 [facility], [facility], [address] , [facility] [address], [place], [address], 2 15:02:38 Procedures polysomnog fariha, split night (PROC) [address] [facility], [address] [place], [address], 2 16:03:46 Surgeries None recorded. Imaging US, thyroid [address] (Imaging), [address] [facility] [address], [place], [address], 3 16:18:09 Medication Orders bacitracin zinc 500 unit-polym yxin B 10,000 unit/gram topical ointment 2021 023 [place] [id number], [address] [facility] [address], [place], [place], [id number], 3 10:21:56 Patient TargetsNo targets recorded. Patient Instructions Encounter Date Encounter Id Patient Instructions Last Modified By Organization Details Last Modified Time 07/03/2021 [id number] A healthy lifestyle: care instructions Not available 07/03/2021 16:03:46 toenail fungus: care instructions Not available 07/03/2021 16:03:46 09/26/2021 [id number] A healthy lifestyle: care instructions Not available 09/26/2021 11:47:44 toenail fungus: care instructions Not available 09/26/2021 11:47:44 06/15/2022 [id number] A healthy lifestyle: care instructions Not available 06/26/2022 11:48:56 Reason for Referral Hot Braider Referral for Onyc homycosis of toenails Referring Physician: Orville Crowley, Radio Despatcher, Encounter Date: 09/26/2021 Results Created Date Observation Date Name Description Value Unit Range Abnormal Flag Note LastModifiedBy Organization Detail LastModifiedTime 08/23/1908/23/2020 CBC w/ auto diff WBC 7.1 x10e3 /uL 3.4-10 .8 Not Available [facility] ([facility]) [address] [place], [address], 08/23/2020 09:14:42 08/23/1908/23/2020 CBC w/ auto diff RBC 4.15 x10e6 /uL 3.77-5 .28 Not Available [facility] ([facility] [address] [place], [address], 08/23/2020 09:14:42 08/23/1908/23/2020 CBC w/ auto diff hemoglobin 12.8 g/dL 11.1-1 5.9 Not Available [facility] ([facility] [address] [place], [address], 08/23/2020 09:14:42 08/23/1908/23/2020 CBC w/ auto diff hematocrit 38.2 % 34.0-4 6.6 Not Available [facility] ([facility] [address] [place], [address], 08/23/2020 09:14:42 08/23/1908/23/2020 CBC w/ auto diff MCV 92 fL 79-97 Not Available [facility] ([facility] [address] [place], [address], 08/23/2020 09:14:42 08/23/1908/23/2020 CBC w/ auto diff MCH 30.8 pg 26.6-3 3.0 Not Available [facility] ([facility] [address] [facility], [place], [address], 08/23/2020 09:14:42 08/23/19 21 08/23/2020 CBC w/ auto diff MCHC 33.5 g/dL 31.5-3 5.7 Not Available [facility] ([facility] [address] [facility], [place], [address], 08/23/2020 09:14:42 08/23/19 21 08/23/2020 CBC w/ auto diff RDW 13.3 % 11.7-1 5.4 Not Available [facility] ([facility] [address] [facility], [place], [address], 08/23/2020 09:14:42 08/23/19 21 08/23/2020 CBC w/ auto diff platelets 321 x10e3 /uL 150-45 0 Not Available [facility] ([facility] [address] [facility], [place], [address], 08/23/2020 09:14:42 08/23/1908/23/2020 CBC w/ auto diff neutrophils 62 % not estab. Not Available [facility] ([facility] [address] [facility], [place], [address], 08/23/2020 09:14:42 08/23/1908/23/2020 CBC w/ auto diff lymphs 28 % not estab. Not Available [facility] ([facility] [address] [facility], [place], [address], 08/23/2020 09:14:42 08/23/1908/23/2020 CBC w/ auto diff monocytes 6 % not estab. Not Available [facility] ([facility] [address] [facility], [place], [address], 08/23/2020 09:14:42 08/23/19 21 08/23/2020 CBC w/ auto diff eos 3 % not estab. Not Available [facility] ([facility] [address] [place], [address], 08/23/2020 09:14:42 08/23/19 21 08/23/2020 CBC w/ auto diff basos 1 % not estab. Not Available [facility] ([facility] [address] [place], [address], 08/23/2020 09:14:42 08/23/19 21 08/23/2020 CBC w/ auto diff immature cells [employer] Not Available [facility] ([facility] [address] [place], [address], 08/23/2020 09:14:42 08/23/19 21 08/23/2020 CBC w/ auto diff neutrophils (absolute) 4.5 x10e3 /uL 1.4-7. 0 Not Available [facility] ([facility] [address] [place], [address], 08/23/2020 09:14:42 08/23/1908/23/2020 CBC w/ auto diff lymphs (absolute) 2.0 x10e3 /uL 0.7-3. 1 Not Available [facility] ([facility] [address] [place], [address], 08/23/2020 09:14:42 08/23/19 21 08/23/2020 CBC w/ auto diff monocytes(ab solute) 0.4 x10e3 /uL 0.1-0. 9 Not Available [facility] ([facility] [address] [place], [address], 08/23/2020 09:14:42 08/23/19 21 08/23/2020 CBC w/ auto diff eos (absolute) 0.2 x10e3 /uL 0.0-0. 4 Not Available [facility] ([facility] [address] [facility], [address], 08/23/2020 09:14:42 08/23/19 21 08/23/2020 CBC w/ auto diff baso (absolute) 0.0 x10e3 /uL 0.0-0. 2 Not Available [facility] ([facility] [address] [facility], [place], [address], 08/23/2020 09:14:42 08/23/19 21 08/23/2020 CBC w/ auto diff immature granulocytes 0 % not estab. Not Available [facility] ([facility] [address] [facility] [place], [address], 08/23/2020 09:14:42 08/23/19 21 08/23/2020 CBC w/ auto diff immature grans (abs) 0.0 x10e3 /uL 0.0-0. 1 Not Available [facility] ([facility] [address] [facility], [place], [address], 08/23/2020 09:14:42 08/23/19 21 08/23/2020 CBC w/ auto diff NRBC [employer] Not Available [facility] ([facility] [address] [facility], [place], [address], 08/23/2020 09:14:42 08/23/1908/23/2020 CBC w/ auto diff hematology comments: [employer] Not Available [facility] ([facility] [address] [facility], [place], [address], 08/23/2020 09:14:42 08/23/1908/23/2020 hepat itis panel (A+B+ C), acute , serum hep A Ab, IgM Negati ve negati ve Not Available [facility] ([facility] [address] [facility], [place], [address], 08/23/2020 09:14:43 08/23/19 21 08/23/2020 hepat itis panel (A+B+ C), acute , serum HBsAg screen Negati ve negati ve Not Available [facility] ([facility] [address] [facility], [place], [address], 08/23/2020 09:14:43 08/23/19 21 08/23/2020 hepat itis panel (A+B+ C), acute , serum hep B core Ab, IgM Negati ve negati ve Not Available [facility] ([facility] [address] [facility], [place], [address], 08/23/2020 09:14:43 08/23/19 21 08/23/2020 hepat itis [...] ion test ([id number]). Not Available [facility] ([facility] [address] [facility], [place], [address], 08/23/2020 09:14:43 08/23/1908/23/2020 hsv (1+2) igg Ab, [...] josé to HSV-1 . Not Available [facility] ([facility] [address] [facility], [place], [address], 08/23/2020 09:14:44 08/23/19 21 08/23/2020 hsv (1+2) [...] josé to HSV-2 . Not Available [facility] ([facility] [address] [place], [address], 08/23/2020 09:14:44 08/23/1908/23/2020 RPR (rapi d plasm a reagi n), serum RPR Non Reacti ve non reacti ve Not Available [facility] ([facility]) [address] [place], [address], 08/23/2020 09:14:45 08/23/1908/23/2020 HIV 1+2 AB + HIV 1 p24 Ag, quali tativ e immun oassa y, serum HIV screen 4TH generation wrfx Non Reacti ve non reacti ve Not Available [facility] ([facility]) [address] [place], [address], 08/23/2020 09:14:46 08/23/1908/24/2020 CT + NG + TV, DNA, urine /swab chlamydia by MARIELLE Negati ve negati ve Not Available [facility] ([facility]) [address] [place], [address], 08/24/2020 03:07:22 08/23/1908/24/2020 CT + NG + TV, DNA, urine /swab gonococcus by MARIELLE Negati ve negati ve Not Available [facility] ([facility]) [address] [place], [address], 08/24/2020 03:07:22 08/23/19 21 08/24/2020 CT + NG + TV, DNA, urine /swab trich vag by MARIELLE Negati ve negati ve Not Available [facility] ([facility] [address] [facility], [place], [address], 08/24/2020 03:07:22 08/23/19 21 08/23/2020 hsv (1+2) [...] josé to HSV-1 . Not Available [facility] ([facility] [address] [facility], [place], [address], 08/24/2020 03:07:23 08/23/19 21 08/23/2020 hsv (1+2) [...] josé to HSV-2 . Not Available [facility] ([facility] [address] [facility], [place], [address], 08/24/2020 03:07:23 07/05/1907/04/2021 pregn alma test, urine HCG negati ve Not Available In-Office Order Internal Use Only DO Not Attach Compendium DO Not Attach Compendium, Do Not Delete/merge, [id number] 07/03/2021 15:27:13 09/27/19 22 09/27/2021 TSH+F REE T4 TSH 1.530 uIU/m L 0.450- 4.500 Not Available [facility] ([facility] [address] [facility], [place], [address], 09/28/2021 03:07:32 09/27/19 22 09/27/2021 TSH+F REE T4 T4,free(dire ct) 1.30 NG/dL 0.82-1 .77 Not Available [facility] ([facility] [address] [place], [address], 09/28/2021 03:07:32 09/27/19 22 09/27/2021 COMP. METAB OLIC PANEL (14) glucose 85 mg/dL 65-99 Not Available [facility] ([facility] [address] [place], [address], 09/28/2021 03:07:33 09/27/19 22 09/27/2021 COMP. METAB OLIC PANEL (14) BUN 8 mg/dL 6-20 Not Available [facility] ([facility] [address] [place], [address], 09/28/2021 03:07:33 09/27/19 22 09/27/2021 COMP. METAB OLIC PANEL (14) creatinine 0.61 mg/dL 0.57-1 .00 Not Available [facility] ([facility] [address] [place], [address], 09/28/2021 03:07:33 09/27/19 22 09/27/2021 COMP. METAB OLIC PANEL (14) eGFR 122 mL/mi n/1.7 3 >59 Not Available [facility] ([facility] [address] [place], [address], 09/28/2021 03:07:33 09/27/19 22 09/27/2021 COMP. METAB OLIC PANEL (14) BUN/creatini ne ratio 13 9-23 Not Available [facility] ([facility] [address] [facility], [place], [address], 09/28/2021 03:07:33 09/27/19 22 09/27/2021 COMP. METAB OLIC PANEL (14) sodium 138 mmol/ L 134-14 4 Not Available [facility] ([facility] [address] [facility], [place], [address], 09/28/2021 03:07:33 09/27/19 22 09/27/2021 COMP. METAB OLIC PANEL (14) potassium 4.1 mmol/ L 3.5-5. 2 Not Available [facility] ([facility] [address] [facility], [place], [address], 09/28/2021 03:07:33 09/27/19 22 09/27/2021 COMP. METAB OLIC PANEL (14) chloride 102 mmol/ L 96-106 Not Available [facility] ([facility] [address] [facility], [place], [address], 09/28/2021 03:07:33 09/27/19 22 09/27/2021 COMP. METAB OLIC PANEL (14) carbon dioxide, total 25 mmol/ L 20-29 Not Available [facility] ([facility] [address] [facility], [place], [address], 09/28/2021 03:07:33 09/27/19 22 09/27/2021 COMP. METAB OLIC PANEL (14) calcium 9.3 mg/dL 8.7-10 .2 Not Available [facility] ([facility] [address] [facility], [place], [address], 09/28/2021 03:07:33 09/27/19 22 09/27/2021 COMP. METAB OLIC PANEL (14) protein, total 7.4 g/dL 6.0-8. 5 Not Available [facility] ([facility]) [address], [place], [address], 09/28/2021 03:07:33 09/27/19 22 09/27/2021 COMP. METAB OLIC PANEL (14) albumin 4.4 g/dL 3.8-4. 8 Not Available [facility] ([facility] [address], [place], [address], 09/28/2021 03:07:33 09/27/19 22 09/27/2021 COMP. METAB OLIC PANEL (14) globulin, total 3.0 g/dL 1.5-4. 5 Not Available [facility] ([facility] [address] [facility], [place], [address], 09/28/2021 03:07:33 09/27/19 22 09/27/2021 COMP. METAB OLIC PANEL (14) A/G ratio 1.5 1.2-2. 2 Not Available [facility] ([facility] [address] [facility], [place], [address], 09/28/2021 03:07:33 09/27/19 22 09/27/2021 COMP. METAB OLIC PANEL (14) bilirubin, total 0.5 mg/dL 0.0-1. 2 Not Available [facility] ([facility] [address] [facility], [place], [address], 09/28/2021 03:07:33 09/27/19 22 09/27/2021 COMP. METAB OLIC PANEL (14) alkaline phosphatase 80 IU/L 44-121 Not Available [facility] [address] [facility], [place], [address], 09/28/2021 03:07:33 09/27/19 22 09/27/2021 COMP. METAB OLIC PANEL (14) AST (SGOT) 18 IU/L 0-40 Not Available [facility] ([facility] [address] [facility], [place], [address], 09/28/2021 03:07:33 09/27/19 22 09/27/2021 COMP. METAB OLIC PANEL (14) ALT (SGPT) 16 IU/L 0-32 Not Available [facility] ([facility] [address] [facility], [place], [address], 09/28/2021 03:07:33 09/27/19 22 09/27/2021 LIPID PANEL cholesterol, total 166 mg/dL 100-19 9 Not Available [facility] ([facility] [address] [place], [address], 09/28/2021 03:07:34 09/27/19 22 09/27/2021 LIPID PANEL triglyceride s 36 mg/dL 0-149 Not Available [facility] ([facility] [address] [place], [address], 09/28/2021 03:07:34 09/27/19 22 09/27/2021 LIPID PANEL HDL cholesterol 55 mg/dL >39 Not Available [facility] ([facility] [address] [place], [address], 09/28/2021 03:07:34 09/27/19 22 09/27/2021 LIPID PANEL VLDL cholesterol jayant 8 mg/dL 5-40 Not Available [facility] ([facility]) [address] [place], [address], 09/28/2021 03:07:34 09/27/19 22 09/27/2021 LIPID PANEL LDL chol calc ([facility]) 103 mg/dL 0-99 above high normal Not Available [facility] ([facility] [address] [place], [address], 09/28/2021 03:07:34 09/27/19 22 09/27/2021 LIPID PANEL comment: [employer] Not Available [facility] ([facility] [address] [place], [address], 09/28/2021 03:07:34 09/27/19 22 09/27/2021 CT, NG, TRICH VAG BY MARIELLE chlamydia by MARIELLE Negati ve negati ve Not Available [facility] ([facility] [address] [place], [address], 09/28/2021 03:07:35 09/27/19 22 09/27/2021 CT, NG, TRICH VAG BY MARIELLE gonococcus by MARIELLE Negati ve negati ve Not Available [facility] ([facility] [address] [place], [address], 09/28/2021 03:07:35 09/27/19 22 09/27/2021 CT, NG, TRICH VAG BY MARIELLE trich vag by MARIELLE Negati ve negati ve Not Available [facility] ([facility] [address] [place], [address], 09/28/2021 03:07:35 09/27/19 22 09/27/2021 HCV ANTIB DOLLY RFX TO QUANT PCR HCV Ab <0.1 s/co_ ratio 0.0-0. 9 Not Available [facility] ([facility] [address] [place], [address], 09/28/2021 03:07:35 09/27/19 22 09/27/2021 HCV ANTIB DOLLY RFX TO QUANT PCR interpretati on: Commen t Negat tony Not infec josé with HCV, unles s recen t infec tion is suspe cted or other evide nce exist s to indic ate HCV infec tion. Not Available [facility] ([facility] [address] [place], [address], 09/28/2021 03:07:35 09/27/19 22 09/27/2021 HEMOG LOBIN A1C hemoglobin A1C 5.5 % 4.8-5. 6 Predi abete s: 5.7 - 6.4 Diabe michelle: >6.4 Glyce zachary contr ol for adult s with diabe michelle: <7.0 Not Available [facility] ([facility] [address] [place], [address], 09/28/2021 03:07:36 09/27/19 22 09/27/2021 HCG,B ETA SUBUN IT, QNT HCG,beta subunit,qnt, serum <1 mIU/m L Femal e (Non- pregn ant) 0 - 5 (Post menop ausal ) 0 - 8 Femal e (Preg nant) Weeks of Gesta tion 3 6 - 71 4 10 - 750 5 049 - 3914 6 377 - 13395 7 9036 -8024 63 8 61889 -4187 71 9 84255 -9442 10 10 39997 -3481 77 12 97408 -4546 12 14 18716 - 98417 15 84426 - 87040 16 8530 - 24238 17 1650 - 90163 18 7166 - 34130 Jayden ECLIA metho dolog y Not Available [facility] ([facility] [address] [facility], [place], [address], 09/28/2021 03:07:36 09/27/19 22 09/27/2021 HEP B SURFA CE AB hep B surface Ab, qual Reacti ve Non React tony: Incon siste nt with immun ity, less than 10 mIU/m L React tony: Consi stent with immun ity, great er than 9.9 mIU/m L Not Available [facility] ([facility] [address] [place], [address], 09/28/2021 03:07:37 09/27/19 22 09/27/2021 VITAM IN [...] um and D. Cheyenne sr DC: [facility] . 2. Susan k MF, Binneto ey [place], Aguilar off-F errar i TROTTER, et al. Evalu ation , treat ment, and preve ntion of vitam in D defic iency : an Endoc rine Socie ty clini jayant pract ice guide line. JCEM. 2010; 96(7) :1911 -30. Not Available [facility] ([facility] [place] [facility] [address] [place], [address], 09/28/2021 03:07:38 09/27/19 22 09/27/2021 HIV AB/P2 4 AG WITH REFLE X HIV Ab/P24 Ag screen Non Reacti ve non reacti ve HIV Negat tony HIV-1 /HIV- 2 antib odies and HIV-1 p24 antig en were NOT detec josé. There is no labor atory evide nce of HIV infec tion. Not Available [facility] ([facility] [place] [facility] [address] [place], [address], 09/28/2021 03:07:38 09/27/19 22 09/27/2021 HBSAG SCREE N HBsAg screen Negati ve negati ve Not Available [facility] ([facility] [place] [facility] [address] [place], [address], 09/28/2021 03:07:39 02/24/20 22 02/24/2022 HCV ANTIB DOLLY RFX TO QUANT PCR HCV Ab <0.1 s/co_ ratio 0.0-0. 9 Not Available [facility] ([facility] [place] [facility] [address] [place], [address], 02/26/2022 04:06:49 02/24/20 22 02/26/2022 CT, NG, TRICH VAG BY MARIELLE chlamydia by MARIELLE Negati ve negati ve Not Available [facility] ([facility] [place] [place] [facility] [address] [place], [address], 02/26/2022 04:06:49 02/24/20 22 02/26/2022 CT, NG, TRICH VAG BY MARIELLE gonococcus by MARIELLE Negati ve negati ve Not Available [facility] ([facility] [place] [facility] [address] [place], [address], 02/26/2022 04:06:49 02/24/20 22 02/26/2022 CT, NG, TRICH VAG BY MARIELLE trich vag by MARIELLE Negati ve negati ve Not Available [facility] ([facility] [place] [facility] [address] [place], [address], 02/26/2022 04:06:49 02/24/20 22 02/24/2022 HEP B SURFA CE AB hep B surface Ab, qual Reacti ve Non React tony: Incon siste nt with immun ity, less than 10 mIU/m L React tony: Consi stent with immun ity, great er than 9.9 mIU/m L Not Available [facility] ([facility] [place] [place] [facility] [address] [place], [address], 02/26/2022 04:06:50 02/24/20 22 02/24/2022 HIV AB/P2 4 AG WITH REFLE X HIV Ab/P24 Ag screen Non Reacti ve nonrea ctive HIV Negat tony HIV-1 /HIV- 2 antib odies and HIV-1 p24 antig en were NOT detec josé. There is no labor atory evide nce of HIV infec tion. Not Available [facility] ([facility] [place] [facility] [address] [place] [address], [address], 02/26/2022 04:06:51 02/24/20 22 02/24/2022 RPR, RFX QN RPR/C ONFIR M TP RPR Non Reacti ve nonrea ctive Not Available [facility] ([facility] [place] [facility] [address] [facility], [place], [address], 02/26/2022 04:06:50 02/24/20 22 02/24/2022 INTER PRETA TION: interpretati on: Commen t Negat tony Not infec josé with HCV, unles s recen t infec tion is suspe cted or other evide nce exist s to indic ate HCV infec tion. Not Available [facility] ([facility] [place] [place] [facility] [address] [facility], [place], [address], 02/26/2022 04:06:49 05/03/1905/03/2022 XR, chest , 2 view No observ ation record ed. [id number], [place], [address], 05/03/2022 16:43:31 06/16/19 23 06/15/2022 US, thyro id No observ ation record ed. [address], [place], [address], 06/18/2022 16:49:27 06/19/19 23 06/15/2022 US, thyro id No observ ation record ed. [address] [facility] [address], [place], [address], 06/18/2022 14:30:37 Result Notes None recorded. Problems Name Problem SNOMED Code Status Onset Date Resolution Date Notes Provider Name and Address Organization Details Recorded Time Trichomonal urethritis 61024951 Completed 07/04/2020 ROBERT PHILLIPS Attn: Hien crocker,[address] [facility], [place], [address], [place] [facility] 1 13:29:34 Genital herpes simplex 66161132 Active 2020 ROBERT PHILLIPS Attn: Hien crocker,[address] [facility], [place], [address], [place] 04/26/202 1 13:29:28 Body mass index 40+ - severely obese 125671023 Active 2020 ROBERT PHILLIPS Attn: Hien crocker,[address] [facility], [place], [address], [place] - [place] 1 13:38:26 Morbid obesity 835876554 Active 2022 ROBERT PHILLIPS Attn: Hien crocker,[address] [place], [address], [place] - [place] 3 11:48:58 Goiter 6289552 Active 2022 ROBERT PHILLIPS Attn: Hien crocker,[address] [facility], [place], [address], [facility] - [facility] 3 11:48:59 Notes:Learning disability Problem [...] completed Not Available Not Available Not Available [facility] with Large Mask USE DIRECTED active Not [...] Updated DateTime 3 170.18 cm 48.1 kg/m2 362081. 56 g 69 /min 99 % 99 % 122/70 mm[Hg] Eileen Carroll MA [facility] 3 10:20:38 Date Recorded Body height Body mass index (BMI) Body weight Heart rate Oxygen saturation Oxygen saturation in Arterial blood by Pulse oximetry Systolic And Diastolic Provider Name and Address Organization Details Last Updated DateTime 2 170.18 cm 47.1 kg/m2 759082. 51 g 77 /min 100 % 100 % 120/82 mm[Hg] Eileen Carroll MA [facility] 2 15:09:35 Date Recorded Body height Body mass index (BMI) Body weight Heart rate Body temperature Respiratory rate Oxygen saturation Oxygen saturation in Arterial blood by Pulse oximetry Systolic And Diastolic Provider Name and Address Organization Details Last Updated DateTime 2 170.18 cm 46.7 kg/m2 378562. 53 g 72 /min 98 [degF] 16 /min 99 % 99 % 120/82 mm[Hg] Javid Raymundo MA [facility] 2 11:24:42 Social History Question Answer Notes LastModified by Organizat ion Details LastModified Time Tobacco Smoking Status Never Smoker Dahlia lyle [facility] 04/11/2015 12:38:48 How Many Years Have [...] Functional Status Question Answer Note LastModified by [employer] Solutionsat ion Details LastModified Time Do you use [...] Skin Problems N Anemia N Heart Attack ([place]) N Anxiety Disorder N Diabetes N Muscle, [...] mcg/0.25mL dose 06/14/2020 completed Eileen Carroll MA [facility], [place] - [facility] 06/28/2020 15:55:37 Past Encounters Encounter ID Performer Location Encounter Start Date Encounter Closed Date Diagnosis/Indication Diagnosis SNOMED-CT Code Diagnosis ICD10 Code Diagnosis IMO Codes Diagnosis Note [id number] Shmuel Calloway PA-C [facility] [address] [place] [address] 04/11/2015 12:23:55 04/11/2015 13:08:46 Venereal disease screening 714606860 Z11.3 [id number] HAKAN Mosqueda [facility] [address] [place] [address] 09/27/2016 15:35:22 09/28/2016 11:20:11 test negative 935212632 Z32.02 Venereal d isease screening 001937346 Z11.3 [id number] MASOUD Hansen NP [facility] [address] [place] [address] 09/23/2017 13:33:30 09/25/2017 15:01:15 Pain of breast 93643736 N64.4 -Pain left breast, no lumps-Obta in diagnostic mammo left breast Adult heal th examination 062411475 Z00.00 -Obtain labs HIV screening 681444080 Z11.4 Fluid leve l behind tympanic membrane 274603014 H65.03 -Refer to ENT-Contin ue use of flonase, antihistam tori [id number] MASOUD Hansen NP [facility] [address] [place] [address] 01/07/2018 12:17:50 01/07/2018 13:03:40 Gastroesophageal reflux disease 122510054 K21.9 -Renew ranitidine Sleep harry morgan disturbance 08027015 G47.9 -Refer to sleep medicine [id number] MASOUD Hansen NP [facility] [address] [place] [address] 02/17/2018 14:59:07 02/17/2018 16:22:44 Contraception care management 435685804 Z30.9 -Preg test negative-D epo given as directed-F /u 3 months as directed [id number] Giana Marti MD [facility] [address] [place] [address] 04/23/2018 12:31:15 04/28/2018 09:56:42 Plantar fasciitis 943523298 M72.2 stretching exercises, april wraps, ibuprofen, and shoes with soft soles and good arch supports recommende d. Do not go barefoot. Uses depot contraception 975793671 Z30.42 Patient has recently restarted use of DepoProver a and is having heavy irregular bleeding; advised this can last for several months. Body mass index 40+ - severely obese 720481169 Z68.41 10 pound weight loss over the past 7 months. discussed low fat, low carb diet, and encouraged exercise. [id number] MASOUD Hansen NP [facility] [address] [place] [address] 05/15/2018 10:28:36 05/15/2018 11:19:42 Contraception care 645315970 Z30.40 [id number] ROBERT PHILLIPS [facility] [address] [place] [address] 06/28/2020 15:41:11 07/05/2020 06:54:42 Genital herpes simplex 42391023 A60.9 patient has not had outbreak in > one year. follows OBGYN in [place]. Adult [facility] examination 018326836 Z00.00 patient coming back for labs. wanted to establish here today. complaint of hyperpigme ntation of tongue. This has been looked at by ENT, BX obtained and it was normal. - increase exercise - disucssed diet and weight loss - f/u yearly or prn Body mass index 40+ - severely obese 095989113 Z68.41 discussed low fat, low carb diet, and encouraged exercise. [id number] ROBERT PHILLIPS [facility] [address] [place] [address] 08/22/2020 09:47:45 08/22/2020 10:10:48 Adult health examination 635350232 Z00.00 patient coming back for labs. wanted to establish here today. complaint of hyperpigme ntation of tongue. This has been looked at by ENT, BX obtained and it was normal. - increase exercise - disucssed diet and weight loss - f/u yearly or prn [id number] ROBERT PHILLIPS [facility] [address] [place] [address] 07/03/2021 14:55:09 07/05/2021 10:21:13 Morbid obesity 049555027 E66.01 BMI 47.1 At [facility] ed risk of sexually transmitted infection 045817397 Z20.2 Onychomyco sis of toenails 490805138 B35.1 right first toe Irregular periods 891580 07 N92.6 Sleep apnea 39224078 G47 .30 witness apnea and snoring, daytime somnolence , fam hx of sleep apnea in mom and daughter, obese. - sleep study Pseudomona s aeruginosa infection of nail 477257997 B96.5 left first toe green nail syndrome x 3 months. otc fungal creams not working. will trial bacitracin and f/u one month. [id number] ROBERT PHILLIPS [facility] [address] [place] [address] 09/26/2021 10:51:25 09/27/2021 13:05:01 Morbid obesity 763966747 E66.01 BMI 47.1 At [facility] ed risk of sexually transmitted infection 208840147 Z20.2 Onychomyco sis of toenails 728205343 B35.1 right first toe Pseudomona s aeruginosa infection of nail 197063445 B96.5 left first toe green nail syndrome x 3 months. otc fungal creams not working. will trial bacitracin and f/u one month. Irregular periods 156991 07 N92.6 Accidental needle stick injury 7972778914 8497563 T14.8XXA needle stick at work. encouraged to let her work know. obtain labs [id number] ROBERT PHILLIPS [facility] [address] [place] [address] 02/23/2022 09:32:41 02/27/2022 15:55:50 Venereal disease screening 591849566 Z11.3 [id number] ROBERT PHILLIPS [facility] [address] [place] [address] 06/15/2022 10:06:11 06/26/2022 16:18:08 Morbid obesity 023736034 E66.01 BMI 48.1disucs sed dietdiscus sed exercisef/ u one month Goiter 1244730 E04.9 goiter on exam, non painfulUS Health Concerns Section Related Observation LastModified by Organization Detai ls LastModified Time None Recorded Concern Status LastModified by Organization Details LastModified Time None Recorded Advance Directives Directive None Recorded Payers Insurance Date Sequence Insurance Name Policy Number Policy Bob Covered Member ID Bob Member ID Guarantor Name 06/15/2022 1 [place] [facility] Carol Jacobo [id number] Carol Jacobo 06/15/2022 1 [facility] (MEDICAID HMO) Carol Jacobo [id number] Carol Jacobo 06/15/2022 1 [facility] PRIOR TO 09/08/2020 (MEDICAID REPLACEMENT - HMO) Carol Jacobo [id number] Carol Jacobo 07/09/2022 1 [facility] - DOS ON OR AFTER 20 (MEDICAID REPLACEMENT - HMO) Carol Jacobo [id number] Carol Jacobo 06/15/2022 1 [facility] (MEDICAID HMO) Carol Jacobo [id number] Carol Jacobo Notes Date Note Type Note [...] She does get her nails done at [employer]. Hx of acid reflux. ROBERT PHILLIPS Attn: Accounting,[address] [place], [address], [facility] - [facility] 07/03/2021 16:04:04 09/26/2021 text/html Sleep ProblemsRe ported by PatientSLoma [facility] Medical CenterFor general sleep, patient reportssnoring,witness ed [...] her blood drawn. ROBERT PHILLIPS Attn: Accounting, [facility], [place], [address], [facility] - SI 09/27/2021 09:29:29 06/15/2022 text/html ROS [...] diets or medications. ROBERT PHILLIPS Attn: Accounting, [facility], [place], [address], [facility] - [facility] 06/26/2022 11:49:22 OBGyn Episode No OBEpisode recorded.
--- OUTSIDE RECORDS SUMMARY | 2025-01-14 17:10 | XMS_ITS | Encounter Summary ---
Author Organization [facility] Address [address] [place] [address] Phone Care Team Providers Care Missile Mechanic Name Role Phone De Artur Galaviz DO Primary Care Provider Harriet Crawford NP Primary Care Provider [phone] Encounter Details Date Type Department Care Team (Late st Contact Info) Description 03/29/2017 Orders Only [facility] ProviderJemima MD [address] [place] [address] Social History Tobacco Use Types Packs/Day Years Used Date Smoking Tobacco: Former Smokeless Tobacco: Former Alcohol Use Standard Drinks/Week Comments Yes 0 (1 standard drink = 0.6 oz pur e alcohol) Comments Unknown Sex and Gender Information Value Date Recorded Sex Assigned at Not on file Legal Sex Female 2:25 PM SUPERVISOR 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 Historical Provider LAB PATHOLOGY ORDERABLES Final Result documented in this encounter Visit Diagnoses Not on filedocumented in this encounter Care Teams Missile Mechanic Relationship Specialty Start Date End Date Artur Kc DO [address] [place] [address] PCP - General Family Medicine 02/15/17 07/24/22 [place] [address] [place] [address] PCP - General Internal Medicine 07/25/22 documented as of this encounter
--- OUTSIDE RECORDS SUMMARY | 2025-01-14 17:10 | XMS_ITS | Clinical Summary ---
Author Organization [facility] Address [facility] [place] [address] Care Team Providers Care Gas Engineer Name Role Phone Kellie Lind NP Primary Care Provider [phone] Allergies No known active allergies Medications medroxyPROGESTER [...] Cancer Screening with HPV 2020 PHQ-2 (Physician Stebbins) 03/11/2024 COVID-19 Vaccine ( season) 2024 01/30/2021, [...] with a HCV Nucleic Acid Amplification test (264189). 05/22/2019 8:15 AM CDT 05/22/2019 Narrative [facility] - 05/26/2019 4:06 AM CDT Performed at: 02 - [facility] [address] [id number] Line Haul Driver: Levi Huizar PhD, Phone: [phone] Kellie Lind NP LABORATORY Final Result [facility] [address] [place] [address] [facility] 2 from Last 3 Months or Most Recently Relevant to Health Maintenance Insurance [employer] Care Teams Gas Engineer Relationship Specialty Start Date End Date Kellie [place] [address] PCP - General FAMILY PRACTICE 02/06/17
--- OUTSIDE RECORDS SUMMARY | 2025-01-14 17:11 | XMS_ITS | Clinical Summary ---
Author Organization [facility] Address [address] [place] [address] Care Team Providers Care Art Specialist Name Role Phone Harriet Crawford NP Primary [...] times daily as needed for discomfort. Get yfem-mkm-gtatiyg suppositories as needed. Notify the office without [...] provided. Assessment & Plan (02/13/2024 9:36 AM ADMINISTRATIVE ASSISTANT DATA ENTRY): Discussed the patient's BMI. The BMI is above average. BMI management plan is completed. BMI Follow-up includes: nutrition counseling, exercise counseling and education provided. Assessment & Plan (03/06/2023 9:08 AM ADMINISTRATIVE ASSISTANT DATA ENTRY): Discussed the patient's BMI. The BMI is above average. BMI management plan is completed. BMI Follow-up includes: nutrition counseling, exercise counseling and education provided. Class 3 severe obesity due t o excess calories without serious comorbidity with body mass index (BMI) of 45.0 to 49.9 in adult 07/25/2022 Assessment & Plan (01/16/2024 2:04 PM ADMINISTRATIVE ASSISTANT DATA ENTRY): Discussed the patient's BMI. The BMI is [...] (01/29/2018): Added automatically from request for surgery [id number] Impacted third molar tooth 01/29/2018 Overview (01/29/2018): Added automatically from request for surgery [id number] Large tonsils 01/29/2018 Overview (01/29/2018): Added automatically from request for surgery [id number] Laryngopharyngeal reflux (LPR) 01/01/2018 Assessment & Plan [...] 03/17/2017 Assessment & Plan (04/01/2017 8:37 AM ADMINISTRATIVE ASSISTANT DATA ENTRY): A punch biopsy was performed today of the anterior tip of the tongue. Specimen will be submitted in formalin to the pathology Department for histopathologic assessment. Oral hygiene care instructions were discussed. Further treatment recommendations pending results biopsy. Assessment & Plan (03/17/2017 3:52 PM ADMINISTRATIVE ASSISTANT DATA ENTRY): Patient demonstrates a pigmented oral lesion along [...] 03/17/2017 Assessment & Plan (03/17/2017 3:53 PM ADMINISTRATIVE ASSISTANT DATA ENTRY): Today's examination demonstrated serous fluid in the [...] on file Legal Sex Female 2:25 PM ADMINISTRATIVE ASSISTANT DATA ENTRY Gender Identity Not on file Sexual Orientation [...] to complete this topic Insurance [employer] [facility] [place] [facility] [employer] [place] [facility] [place] Care Teams Art Specialist Relationship Specialty Start Date End Date Harriet Crawford NP [address] [address] PCP - General Internal Medicine 07/25/22
--- OUTSIDE RECORDS SUMMARY | 2025-01-14 17:11 | XMS_ITS | Clinical Summary ---
Author Organization [facility] [employer] Address [address] [place] [address] Care Team Providers Care Rug Frame Mounter Name Role Phone Kellie Lind APRN-SHIPPING RECEIVING CLERK Primary Care Provider [phone] Source Comments [facility] [employer],non-owned Affiliates and Associated Physician Practices is amultiple site organization consisting of ambulatory clinics and hospital sitesin [place], [place], [place] and [place]. This disclosure is being madepursuant to the Care Everywhere program and may not contain all information available regarding this patient. Last updated 17.[facility] [employer] Allergies No known active allergies Medications * Be aware that medications may not be up to date on this document. Alwaysverify current medications with the patient. acyclovir (ZOVIRAX) 400 MG tablet Take 400 mg by mouth Active fluticasone propionate (FLONASE) 50 MCG/ACT nasal spray [place] 1 spray into the nose 03/29/2017 Active fluticasone propionate (FLONASE) 50 MCG/ACT nasal spray [place] 2 sprays into each nostril once daily 1 bottles 07/20/2017 Active Social History Tobacco Use Types Packs/Day Years Used Date Smoking Tobacco: Never Smokeless Tobacco: Never Comments Unknown Sex and Gender Information Value Date Recorded Sex Assigned at Not on file Legal Sex Female 5:24 PM SUPERVISOR [employer] Gender Identity Not on file Sexual Orientation [...] patient's age to complete this topic Insurance [employer] Care Teams Rug Frame Mounter Relationship Specialty Start Date End Date Kellie Lind APRN-C[place] [address] PCP - General 12/06/16
== END 2025-01-14 08:40 | disposition home or self-care (01) ==
LOC: ANHED 08:25
PROVIDERS: Emergency Provider Student in an Organized Health Care Education/Training Program; PCP Internal Medicine
DX: S29.9XXA Unspecified injury of thorax, initial encounter (principal); S19.9XXA Unspecified injury of neck, initial encounter; S49.92XA Unspecified injury of left shoulder and upper arm, initial encounter; S49.91XA Unspecified injury of right shoulder and upper arm, initial encounter; E66.9 Obesity, unspecified; Z68.42 Body mass index [BMI] 45.0-49.9, adult; K21.9 Gastro-esophageal reflux disease without esophagitis; V43.02XA Car driver injured in collision with other type car in nontraffic accident, initial encounter; Z77.22 Contact with and (suspected) exposure to environmental tobacco smoke (acute) (chronic)
CPT/HCPCS: 96372; 99283; A9270; J1885